=== PATIENT | female | born 1935 | race Hispanic/Latino ===

== ENCOUNTER 2016-12-07 16:50 | Inpatient (IN) | payer MEDICARE ==
[2016-12-07 17:50] LABS: Basophils % (Auto) 0.6 % (0.0-1.8); Eosinophils % (Auto) 1.3 % (0.0-4.3); Hematocrit 40.6 % (30.3-42.9); Hemoglobin 13.7 gm/dl (10.1-14.3); Mean Corpuscular HGB Conc 34 % (30-34); Mean Corpuscular Hemoglobin 27 pg (28-32); Mean Corpuscular Volume 81 fl (79-97); Platelet Count 323 K/mm3 (140-440); Red Blood Count 5.03 M/mm3 (3.65-5.03); Red Cell Distribution Width 14.3 % (13.2-15.2); White Blood Count 10.4 K/mm3 (4.5-11.0)
[2016-12-07 18:13] LABS: Anion Gap 19 mmol/L; Blood Urea Nitrogen 6 mg/dL (7-17); Calcium 9.8 mg/dL (8.4-10.2); Carbon Dioxide 24 mmol/L (22-30); Chloride 86.9 mmol/L (98-107); Glucose 131 mg/dL (65-100); Potassium 4.4 mmol/L (3.6-5.0); Sodium 125 mmol/L (137-145)
--- NOTE | 2016-12-07 20:07 | Emergency Department Report ---
ED Headache HPI - General Chief Complaint: Dyspnea/Respdistress Stated Complaint: SANDEEP/NAUSEA/LEG PAIN Time Seen by Provider: 12/07/16 19:45 - History of Present Illness Initial Comments: Patient is an 81-year-old female with history of A. fib ablation, hypertension presenting today cause of headache, nausea, vomiting. Patient states it's been going on for the last few days. She is also less steady on her feet. She has also been complaining about occasional chest pressure that was worse this morning but currently is mild. She denies any fevers or chills. Also has urinary frequency and dysuria. Allergies/Adverse Reactions: Allergies adhesive Allergy (Verified 12/07/16 17:22) Rash PAPER TAPE IS OK TO USE cyclobenzaprine Allergy (Verified 12/07/16 17:22) Swelling acetaminophen [From Tylenol] Adverse Reaction (Verified 12/07/16 17:22) Unknown PT STATES HURTS KIDNEYS codeine Adverse Reaction (Verified 12/07/16 17:22) Nausea Home Medications: Ambulatory Orders Carvedilol 12.5 mg PO BID 08/05/14 Losartan Potassium 50 mg PO DAILY 08/05/14 Pregabalin [Lyrica] 150 mg PO BID 08/05/14 cycloSPORINE [Restasis 0.05%] 2 drop OU BID 08/05/14 Triamter/Hctz 37.5-25 mg [Maxzide-25] 0.5 tab PO QDAY 12/07/16 ED Review of Systems ROS: Stated complaint: SANDEEP/NAUSEA/LEG PAIN Other details as noted in HPI ED Past Medical Hx - Past Medical History Hx Hypertension: Yes Hx GERD: Yes (occas) Hx Renal Disease: No Hx of Cancer: Yes (BREAST) Hx Arthritis: Yes Additional medical history: "IRREGULAR HEARTBEAT" - Surgical History Hx Breast Surgery: Yes (mastectomy R,) Additional Surgical History: HYSTERECTOMY. CATARACTS REMOVED BILATERAL. EYE IMPLANTS BILATERAL - Social History Smoking Status: Never Smoker Substance Use Type: None - Medications Home Medications: Home Medications Medication Instructions Recorded Confirmed Last Taken Type Carvedilol 12.5 mg PO BID 08/05/14 12/07/16 12/07/16 08:00 History Losartan Potassium 50 mg PO DAILY 08/05/14 12/07/16 12/07/16 08:00 History Pregabalin [Lyrica] 150 mg PO BID 08/05/14 12/07/16 12/07/16 08:00 History cycloSPORINE [Restasis 0.05%] 2 drop OU BID 08/05/14 12/07/16 12/06/16 21:00 History Triamter/Hctz 37.5-25 mg 0.5 tab PO QDAY 12/07/16 12/07/16 12/07/16 12:00 History [Maxzide-25] ED Physical Exam - General Limitations: Physical Limitation General appearance: alert, in no apparent distress - Head Head exam: Present: atraumatic - Eye Eye exam: Present: normal appearance - ENT ENT exam: Present: normal exam - Respiratory Respiratory exam: Present: normal lung sounds bilaterally. Absent: respiratory distress - Cardiovascular Cardiovascular Exam: Present: regular rate, irregular rhythm - GI/Abdominal GI/Abdominal exam: Present: soft. Absent: distended, tenderness - Extremities Exam Extremities exam: Present: normal inspection - Neurological Exam Neurological exam: Present: alert, CN II-XII intact. Absent: motor sensory deficit - Psychiatric Psychiatric exam: Present: normal affect - Skin Skin exam: Present: intact ED Course Vital Signs 12/07/16 12/07/16 12/07/16 17:27 18:23 20:21 Temperature 98.6 F 98.0 F Pulse Rate 61 97 H 105 H Respiratory 22 20 13 Rate Blood Pressure 181/115 Blood Pressure 158/97 [Left] O2 Sat by Pulse 98 95 94 Oximetry 12/07/16 12/07/16 20:30 21:00 Temperature Pulse Rate 95 H 98 H Respiratory 15 21 Rate Blood Pressure 150/93 Blood Pressure [Left] O2 Sat by Pulse 96 92 Oximetry ED Medical Decision Making - Lab Data Result diagrams: 12/07/16 17:37 12/07/16 17:37 - Medical Decision Making IV, labs, CT of head, urinalysis CT of head negative Labs show hyponatremia, hypomagnesemia, hypophosphatemia Patient also is complaining about urinary frequency and dysuria similar to her prior UTIs, UA does show some blood and a few white cells and small leukocyte Estrace, not clearly a urine infection based on UA but given the patient's symptoms this is likely a UTI Given the patient's infusion and abnormal labs will admit the patient to the hospital We'll give some IV ceftriaxone, magnesium and phosphorus Critical care attestation.: If time is entered above; I have spent that time in minutes in the direct care of this critically ill patient, excluding procedure time. ED Disposition Clinical Impression: Metabolic encephalopathy, Hyponatremia, Hypomagnesemia, Hypophosphatemia UTI (urinary tract infection) Qualifiers: Urinary tract infection type: site unspecified Hematuria presence: with hematuria Qualified Code(s): N39.0 - Urinary tract infection, site not specified ; R31.9 - Hematuria, unspecified Disposition: 09 OP ADMIT IP TO THIS HOSP Is pt being admited?: Yes Does the pt Need Aspirin: No Condition: Stable Referrals: PRIMARY CARE, [Primary Care Provider] - 3-5 Days Time of Disposition: 22:50 (Spoke to Dr. Gamboa, will admit the patient)
[2016-12-07 20:17] LABS: Magnesium 1.6 mg/dL (1.7-2.3); Phosphorous 2.4 mg/dL (2.5-4.5)
[2016-12-07] MEDS ORDERED: ZOFRAN IV ONE (20:20)
[2016-12-07] MEDS ORDERED: ZOFRAN ONE (20:36)
--- NOTE | 2016-12-07 20:53 | Cat Scan Report ---
FINAL REPORT PROCEDURE: CT HEAD/BRAIN WO CON TECHNIQUE: Computerized tomography of the head was performed without contrast material. HISTORY: headache COMPARISON: No prior studies are available for comparison. FINDINGS: No CT evidence of intracranial mass, hemorrhage, acute territorial infarction, or hydrocephalus. Intracranial arteries are symmetric in density. There are mild diffuse age-appropriate involutional changes. The calvarium is intact. Visualized paranasal sinuses are aerated. There is fluid within bilateral mastoids IMPRESSION: No CT evidence of acute intracranial abnormality
[2016-12-07 21:35] LABS: Bilirubin,Urine NEG (Negative); Blood,Urine NEG (Negative); Ketones,Urine 20 mg/dL (Negative); Leukocyte Esterase,Urine SM (Negative); Mucus,Urine FEW /HPF; Nitrite,Urine NEG (Negative); Urobilinogen,Urine < 2.0 mg/dL (<2.0)
[2016-12-07] MEDS ORDERED: NACL 0.9% 1000 ML 1,000 ML IV ONE (21:43)
[2016-12-07] MEDS ORDERED: ROCEPHIN/NS 1 GM/50 ML 1 GM/50 ML BAG IV ONE (22:47)
[2016-12-07] MEDS ORDERED: MAGNESIUM SULFATE 2GM/50ML 2 GM/50 ML BAG IV ONE (22:48)
[2016-12-07] MEDS ORDERED: K-PHOS NEUTRAL PO ONE (22:48)
[2016-12-07] MEDS ORDERED: LASIX IV ONE (23:33)
--- NOTE | 2016-12-07 23:53 | History and Physical Report ---
History of Present Illness Date of examination: 12/07/16 History of present illness: This is a. 81-year-old woman history of hypertension, A. fib, not on anticoagulation, coronary artery disease comes emergency room with complaints of shortness of breath, and orthopnea 2-3 weeks. Also complaining of chest pain in the right chest which she describes a heaviness, unable to say how long it lasts for, intermittent in nature, no radiation and she cannot identify exacerbating or relieving factors. Denies nausea vomiting, diaphoresis or palpitation Review of systems Constitutional: no fever, no chills, no weight loss Ears, eyes, nose, mouth and throat: no nasal congestion, no nasal discharge, no sinus pressure, no vision change, no red eye. Neck: No neck pain or rigidity. Cardiovascular: no orthopnea, no palpitations, no leg swelling Respiratory: No cough, no congestion, no wheezing Gastrointestinal: abdominal pain, hematochezia, no nausea, no vomiting Genitourinary : no dysuria, frequency , no hematuria Musculoskeletal: no joint swelling or muscle ache Integumentary: no rash, no pruritis Neurological: no parathesias, no focal weakness Endocrine: no cold or heat intolerance, no polyuria or polydipsia Hematologic/Lymphatic: no easy bruising, no easy bleeding, no gland swelling Allergic/Immunologic: no urticaria, no angioedema PAST MEDICAL HISTORY:hypertension, A. fib, coronary artery disease, breast cancer PAST SURGICAL HISTORY: Vasectomy, hysterectomy, cataract extraction and implant , excision of melanoma FAMILY HISTORY: Hypertension SOCIAL HISTORY: Denies alcohol, tobacco, drugs Medications and Allergies Allergies Allergy/AdvReac Type Severity Reaction Status Date / Time adhesive Allergy Rash Verified 12/07/16 17:22 cyclobenzaprine Allergy Swelling Verified 12/07/16 17:22 acetaminophen [From Tylenol] AdvReac Unknown Verified 12/07/16 17:22 codeine AdvReac Nausea Verified 12/07/16 17:22 Home Medications Medication Instructions Recorded Confirmed Last Taken Type Carvedilol 12.5 mg PO BID 08/05/14 12/07/16 12/07/16 08:00 History Losartan Potassium 50 mg PO DAILY 08/05/14 12/07/16 12/07/16 08:00 History Pregabalin [Lyrica] 150 mg PO BID 08/05/14 12/07/16 12/07/16 08:00 History cycloSPORINE [Restasis 0.05%] 2 drop OU BID 08/05/14 12/07/16 12/06/16 21:00 History Triamter/Hctz 37.5-25 mg 0.5 tab PO QDAY 12/07/16 12/07/16 12/07/16 12:00 History [Maxzide-25] Active Meds: Active Medications Enoxaparin Sodium (Lovenox) 30 mg SUB-Q QDAY MILO Sodium Chloride (Nacl 0.9% 1000 Ml) 1,000 mls @ 125 mls/hr IV ONCE ONE Stop: 12/08/16 05:42 Last Admin: 12/07/16 22:25 Dose: 125 mls/hr Exam - Physical Exam Narrative exam: Gen. appearance: Patient lying in bed, no apparent distress HEENT: Normocephalic, atraumatic, pupils equally round and reactive to light, extraocular movement intact, and no sclericterus,. No JVD or thyromegaly or nodule,neck supple, no carotid bruit ,mucous membranes moist, no exudate or erythema Heart: S1, S2, regular rate and rhythm Lungs: Clear to auscultation bilaterally, breathing comfortable Abdomen: Positive bowel sounds, nontender, nondistended, no organomegaly Extremity: No edema, cyanosis, clubbing Skin: No rash, nodules, warm, dry Neuro: Oriented 3, cranial nerves II-12 intact, speech is fluent, motor and sensory intact - Constitutional Vitals: Temp Pulse Resp BP Pulse Ox 98.0 F 98 H 21 150/93 92 12/07/16 18:23 12/07/16 21:00 12/07/16 21:00 12/07/16 21:00 12/07/16 21:00 Results - Labs CBC & Chem 7: 12/07/16 17:37 12/07/16 17:37 Labs: Abnormal lab results 12/07/16 12/07/16 12/07/16 Range/Units 17:37 17:37 17:37 MCH 27 L (28-32) pg Seg Neutrophils % 74.1 H (40.0-70.0) % Sodium 125 L (137-145) mmol/L Chloride 86.9 L (98-107) mmol/L BUN 6 L (7-17) mg/dL Creatinine 0.5 L (0.7-1.2) mg/dL Glucose 131 H (65-100) mg/dL Phosphorus 2.40 L (2.5-4.5) mg/dL Magnesium 1.60 L (1.7-2.3) mg/dL NT-Pro-B Natriuret Pep 1229 H (0-900) pg/mL Urine pH (5.0-7.0) // Range/Units 21:24 MCH (28-32) pg Seg Neutrophils % (40.0-70.0) % Sodium (137-145) mmol/L Chloride (98-107) mmol/L BUN (7-17) mg/dL Creatinine (0.7-1.2) mg/dL Glucose (65-100) mg/dL Phosphorus (2.5-4.5) mg/dL Magnesium (1.7-2.3) mg/dL NT-Pro-B Natriuret Pep (0-900) pg/mL Urine pH 8.0 H (5.0-7.0) - Imaging and Cardiology EKG: image reviewed Chest x-ray: image reviewed CT Scan - head: report reviewed Assessment and Plan Assessment Shortness of breath, symptoms are suggestive of CHF but physical exam does not support, rule out PE Unstable angina coronary artery disease hypertension A. fib Plan Admit to medicine Check CAT scan of the chest, cardiac enzymes, echo, consult cardiology Continue appropriate outpatient medications, start DVT prophylaxis
[2016-12-07] MEDS ORDERED: MILK OF MAGNESIA PO PRN (23:56)
[2016-12-07] MEDS ORDERED: DULCOLAX PR PRN (23:56)
[2016-12-08 01:09] LABS: Creatine Kinase MB 1.8 ng/mL (0.0-4.0)
[2016-12-08 01:10] LABS: Creatine Kinase 25 units/L (30-135)
[2016-12-08] MEDS ORDERED: NACL ONE (01:40)
--- NOTE | 2016-12-08 02:01 | Admit Criteria Form ---
Admission Criteria Documentation: URINARY COMPLICATIONS Clinical Indications for Inpatient Care (Place 'X' for any and all applicable criteria): Ongoing inpatient care may be indicated for urinary complications with ANY ONE of the following: [ X]I. Urinary tract infection requiring inpatient care as indicated by ANY ONE of the following(8)(19)(20): [ ]a) Severe symptoms (eg, high fever, severe pain) [ ]b) Vomiting or dehydration requiring ongoing inpatient care [ X]c) IV antibiotic needs that cannot be managed at lower level of care [ ]d) Hemodynamic instability [ ]e) Obstruction of collecting system by stone or tumor [ ]II. Urinary retention requiring drainage or surgery (3)(4)(5)(17)(18) [ ]III. Renal failure (Use Renal Failure Criteria for further information.) [ ]IV. Oliguria(30) [ ]V. Post obstructive diuresis requiring close monitoring of urine output and intravenous compensation for excessive fluid losses(33) Extended stay beyond goal length of stay for primary condition may be needed until ALL of the following are present(3)(4)(5)(8): [ ]a) Renal function (creatinine) at baseline, or daily decreases in creatinine consistent with renal function return [ ]b) Voiding adequately or with urinary catheter or percutaneous suprapubic tube and management regimen in place that is performable at lower level of care. [ ]c) Urine output adequate [ ]d) Fever absent or resolving [ ]e) Infection absent or treatable at next level of care The original [employer] content created by [employer] has been revised. The portions of the content which have been revised are identified through the use of italic text or in bold, and [facility] has neither reviewed nor approved the modified material. All other unmodified content is copyright [employer] Please see references footnoted in the original [employer] edition 2016 Admission Criteria Met: Yes
--- NOTE | 2016-12-08 03:47 | Cat Scan Report ---
FINAL REPORT PROCEDURE: CT ANGIO CHEST TECHNIQUE: Computerized tomographic angiography of the chest was performed after the IV injection of iodinated nonionic contrast including image processing. The image data was postprocessed using 2-dimensional multiplanar reformatted (MPR) and 3-dimensional (MIP and/or volume rendered) techniques. HISTORY: sob x acouple weeks COMPARISON: No prior studies are available for comparison. FINDINGS: Heart and pericardium: The heart is mildly enlarged. There is no pericardial effusion.. Thoracic aorta: There is slight ectasia of the aorta but no aneurysm. There is no dissection.. Pulmonary vasculature: Pulmonary arteries are patent. There is no pulmonary embolism. Lungs: There are no infiltrates, effusions or pneumothoraces. There are mild fibrotic changes at the lung bases.. Musculoskeletal structures: There is mild kyphosis of the thoracic spine. There is no acute bony abnormality. IMPRESSION: There is no pulmonary embolism. There is no aortic dissection. There is no acute lung disease.
[2016-12-08 05:28] LABS: Basophils % (Auto) 0.9 % (0.0-1.8); Eosinophils % (Auto) 0.1 % (0.0-4.3); Hematocrit 41.5 % (30.3-42.9); Hemoglobin 13.7 gm/dl (10.1-14.3); Mean Corpuscular HGB Conc 33 % (30-34); Mean Corpuscular Hemoglobin 27 pg (28-32); Mean Corpuscular Volume 80 fl (79-97); Platelet Count 306 K/mm3 (140-440); Red Blood Count 5.19 M/mm3 (3.65-5.03); Red Cell Distribution Width 14.3 % (13.2-15.2); White Blood Count 12.5 K/mm3 (4.5-11.0)
[2016-12-08 05:45] LABS: Anion Gap 20 mmol/L; Blood Urea Nitrogen 6 mg/dL (7-17); Calcium 9.4 mg/dL (8.4-10.2); Carbon Dioxide 24 mmol/L (22-30); Chloride 88.2 mmol/L (98-107); Glucose 128 mg/dL (65-100); Potassium 3.3 mmol/L (3.6-5.0); Sodium 129 mmol/L (137-145)
[2016-12-08 05:51] LABS: Creatine Kinase MB 4.5 ng/mL (0.0-4.0)
[2016-12-08 05:53] LABS: Creatine Kinase 77 units/L (30-135)
--- NOTE | 2016-12-08 09:02 | XRay Report ---
PA chest: SOB. Right mastectomy. Clear lungs with mildly elevated right hemidiaphragm. Slightly tortuous aorta with normal sized heart. No vascular congestion. No significant change compared to prior exam in January 2015. Impression: No acute findings.
[2016-12-08] MEDS ORDERED: LOVENOX SUB-Q SCH (10:00)
[2016-12-08] MEDS: LOVENOX SUB-Q SCH (10:02)
--- NOTE | 2016-12-08 11:09 | Consultation ---
History of Present Illness Consult date: 12/08/16 Consult reason: chest pain History of present illness: This is a 81yr old woman with a history of paroxysmal Afib only on a low dose baby aspirin and hypertension. 2 years ago, she had a cardiac cath that showed mild, non-obstructive coronary disease, EF 65-70%. She presents to this hospital with complaints of nausea, dizziness and fatigue. She denies chest pain and shortness of breath. Noted hyponatremia with a sodium of 125 on her initial labs. No evidence of pulmonary embolism on chest CTA. Her ECG shows atrial fibrillation with a controlled ventricular rate. Cardiac consultation requested. Medications and Allergies Allergies Allergy/AdvReac Type Severity Reaction Status Date / Time adhesive Allergy Rash Verified 12/07/16 17:22 cyclobenzaprine Allergy Swelling Verified 12/07/16 17:22 acetaminophen [From Tylenol] AdvReac Unknown Verified 12/07/16 17:22 codeine AdvReac Nausea Verified 12/07/16 17:22 Home Medications Medication Instructions Recorded Confirmed Last Taken Type Carvedilol 12.5 mg PO BID 08/05/14 12/07/16 12/07/16 08:00 History Losartan Potassium 50 mg PO DAILY 08/05/14 12/07/16 12/07/16 08:00 History Pregabalin [Lyrica] 150 mg PO BID 08/05/14 12/07/16 12/07/16 08:00 History cycloSPORINE [Restasis 0.05%] 2 drop OU BID 08/05/14 12/07/16 12/06/16 21:00 History Triamter/Hctz 37.5-25 mg 0.5 tab PO QDAY 12/07/16 12/07/16 12/07/16 12:00 History [Maxzide-25] Active Meds: Active Medications Bisacodyl (Dulcolax) 10 mg MD QDAY PRN PRN Reason: Constipation unrelieved by MOM Enoxaparin Sodium (Lovenox) 40 mg SUB-Q QDAY@1000 MILO Last Admin: 12/08/16 10:02 Dose: 40 mg Magnesium Hydroxide (Milk Of Magnesia) 30 ml PO Q4H PRN PRN Reason: Constipation Ondansetron HCl (Zofran) 4 mg IV Q8H PRN PRN Reason: N/V unrelieved by Reglan Physical Examination Vital Signs Temp Pulse Resp BP Pulse Ox 98.6 F 61 22 181/115 98 12/07/16 17:27 12/07/16 17:27 12/07/16 17:27 12/07/16 17:27 12/07/16 17:27 General appearance: no acute distress HEENT: Positive: PERRL Neck: Positive: trachea midline Cardiac: Positive: irregularly irregular Lungs: Positive: Decreased Breath Sounds Neuro: Positive: Grossly Intact Results 12/08/16 04:45 12/08/16 04:45 Cardiac Enzymes 12/08/16 12/08/16 Range/Units 00:12 04:45 CK-MB (CK-2) 1.8 4.5 H (0.0-4.0) ng/mL CBC 12/08/16 Range/Units 04:45 WBC 12.5 H (4.5-11.0) K/mm3 RBC 5.19 H (3.65-5.03) M/mm3 Hgb 13.7 (10.1-14.3) gm/dl Hct 41.5 (30.3-42.9) % Plt Count 306 (140-440) K/mm3 Lymph # 1.6 (1.2-5.4) K/mm3 [place] # 0.9 H (0.0-0.8) K/mm3 Eos # 0.0 (0.0-0.4) K/mm3 Baso # 0.1 (0.0-0.1) K/mm3 Comprehensive Metabolic Panel 12/08/16 Range/Units 04:45 Potassium 3.3 L D (3.6-5.0) mmol/L Carbon Dioxide 24 (22-30) mmol/L BUN 6 L (7-17) mg/dL Creatinine 0.5 L (0.7-1.2) mg/dL Glucose 128 H (65-100) mg/dL Calcium 9.4 (8.4-10.2) mg/dL Assessment and Plan Nausea/weakness Hyponatremia Hypertension Afib, persistent on telemetry [facility] 01/2015 showed a mild non-obstructive disease, EF 65-70%.
--- NOTE | 2016-12-08 11:29 | Progress Note ---
Assessment and Plan Assessment and plan: Acute hypoxic respiratory failure. Continue O2 for supportive care. CT of the chest negative. Follow-up echocardiogram. Cardiology consultation pending. Atrial fibrillation. Cardiology consultation pending. Hypertension. Resume antihypertensive medications. Coronary artery disease History Interval history: No new issues overnight. Patient is an extremely poor historian. Hospitalist Physical - Constitutional Vitals: Temp Pulse Resp BP Pulse Ox 97.8 F 76 20 126/77 96 12/08/16 09:20 12/08/16 09:20 12/08/16 09:20 12/08/16 09:20 12/08/16 09:20 General appearance: Present: no acute distress, well-nourished - EENT Eyes: Present: PERRL, EOM intact ENT: hearing intact, clear oral mucosa, dentition normal - Neck Neck: Present: supple, normal ROM - Respiratory Respiratory effort: normal Respiratory: bilateral: CTA - Cardiovascular Rhythm: regular Heart Sounds: Present: S1 & S2. Absent: gallop, rub - Extremities Extremities: no ischemia, No edema, Full ROM - Abdominal General gastrointestinal: soft, non-tender, non-distended, normal bowel sounds - Integumentary Integumentary: Present: clear, warm, dry - Neurologic Neurologic: CNII-XII intact, moves all extremities Results - Labs CBC & Chem 7: 12/08/16 04:45 12/08/16 04:45 Labs: Laboratory Last Values WBC 12.5 K/mm3 (4.5-11.0) H 12/08/16 04:45 RBC 5.19 M/mm3 (3.65-5.03) H 12/08/16 04:45 Hgb 13.7 gm/dl (10.1-14.3) 12/08/16 04:45 Hct 41.5 % (30.3-42.9) 12/08/16 04:45 MCV 80 fl (79-97) 12/08/16 04:45 MCH 27 pg (28-32) L 12/08/16 04:45 MCHC 33 % (30-34) 12/08/16 04:45 RDW 14.3 % (13.2-15.2) 12/08/16 04:45 Plt Count 306 K/mm3 (140-440) 12/08/16 04:45 Lymph % (Auto) 12.6 % (13.4-35.0) L 12/08/16 04:45 [place] % (Auto) 6.9 % (0.0-7.3) 12/08/16 04:45 Eos % (Auto) 0.1 % (0.0-4.3) 12/08/16 04:45 Baso % (Auto) 0.9 % (0.0-1.8) 12/08/16 04:45 Lymph # 1.6 K/mm3 (1.2-5.4) 12/08/16 04:45 [place] # 0.9 K/mm3 (0.0-0.8) H 12/08/16 04:45 Eos # 0.0 K/mm3 (0.0-0.4) 12/08/16 04:45 Baso # 0.1 K/mm3 (0.0-0.1) 12/08/16 04:45 Seg Neutrophils % 79.5 % (40.0-70.0) H 12/08/16 04:45 Seg Neutrophils # 9.9 K/mm3 (1.8-7.7) H 12/08/16 04:45 D-Dimer 549.31 ng/mlDDU (0-234) H 12/07/16 23:36 Sodium 125 mmol/L (137-145) L 12/07/16 17:37 Potassium 3.3 mmol/L (3.6-5.0) L D 12/08/16 04:45 Chloride 86.9 mmol/L (98-107) L 12/07/16 17:37 Carbon Dioxide 24 mmol/L (22-30) 12/08/16 04:45 Anion Gap 19 mmol/L 12/07/16 17:37 BUN 6 mg/dL (7-17) L 12/08/16 04:45 Creatinine 0.5 mg/dL (0.7-1.2) L 12/08/16 04:45 Estimated GFR > 60 ml/min 12/08/16 04:45 BUN/Creatinine Ratio 12.00 % 12/08/16 04:45 Glucose 128 mg/dL (65-100) H 12/08/16 04:45 Calcium 9.4 mg/dL (8.4-10.2) 12/08/16 04:45 Phosphorus 2.40 mg/dL (2.5-4.5) L 12/07/16 17:37 Magnesium 1.60 mg/dL (1.7-2.3) L 12/07/16 17:37 Total Creatine Kinase 77 units/L (30-135) 12/08/16 04:45 CK-MB (CK-2) 4.5 ng/mL (0.0-4.0) H 12/08/16 04:45 CK-MB (CK-2) Rel Index 5.8 (0-4) H 12/08/16 04:45 Troponin T < 0.010 ng/mL (0.00-0.029) 12/08/16 04:45 NT-Pro-B Natriuret Pep 1229 pg/mL (0-900) H 12/07/16 17:37 Urine Color Yellow (Yellow) 12/07/16 21:24 Urine Turbidity Clear (Clear) 12/07/16 21:24 Urine pH 8.0 (5.0-7.0) H 12/07/16 21:24 Ur Specific [place] 1.012 (1.003-1.030) 12/07/16 21:24 Urine Protein 100 mg/dl mg/dL (Negative) 12/07/16 21:24 Urine Glucose (UA) Neg mg/dL (Negative) 12/07/16 21:24 Urine Ketones 20 mg/dL (Negative) 12/07/16 21:24 Urine Blood Neg (Negative) 12/07/16 21:24 Urine Nitrite Neg (Negative) 12/07/16 21:24 Urine Bilirubin Neg (Negative) 12/07/16 21:24 Urine Urobilinogen < 2.0 mg/dL (<2.0) 12/07/16 21:24 Ur Leukocyte Esterase Sm (Negative) 12/07/16 21:24 Urine WBC (Auto) 2.0 /HPF (0.0-6.0) 12/07/16 21:24 Urine RBC (Auto) 10.0 /HPF (0.0-6.0) 12/07/16 21:24 U Epithel Cells (Auto) 2.0 /HPF (0-13.0) 12/07/16 21:24 Urine Mucus Few /HPF 12/07/16 21:24
[2016-12-08] MEDS: ZOFRAN IV PRN (15:30)
[2016-12-08] MEDS: COREG PO SCH (21:26)
[2016-12-09] MEDS: COREG PO SCH ×2 (10:02→21:21)
[2016-12-09] MEDS: MAXZIDE-25 PO SCH (10:04)
[2016-12-09] MEDS: LOVENOX SUB-Q SCH ×2 (10:04→21:21)
[2016-12-09] MEDS: ZOFRAN IV PRN (10:05)
[2016-12-09] MEDS ORDERED: REGLAN IV PRN (11:48)
--- NOTE | 2016-12-09 11:48 | Progress Note ---
Assessment and Plan Assessment and plan: Acute hypoxic respiratory failure. Continue O2 for supportive care. CT of the chest negative. Follow-up echocardiogram. Cardiology consultation pending. Atrial fibrillation. Continue carvedilol for rate control. Cardiology recommends long-term oral anticoagulation after GI workup. Hypertension. Resume antihypertensive medications. Hyponatremia. Etiology likely secondary to diuretic use. Continue to monitor BMP. Nausea/vomiting/dyspepsia. GI consultation pending.*Reglan and check KUB to rule out obstruction/ileus. History Interval history: No new issues overnight. Patient complains of nausea and dry heaves. No hematemesis. Hospitalist Physical - Constitutional Vitals: Temp Pulse Resp BP Pulse Ox 98.2 F 84 16 183/85 98 12/09/16 10:57 12/09/16 10:57 12/09/16 10:57 12/09/16 10:57 12/09/16 10:57 General appearance: Present: no acute distress - EENT Eyes: Present: PERRL, EOM intact ENT: hearing intact, clear oral mucosa, dentition normal - Neck Neck: Present: supple, normal ROM - Respiratory Respiratory effort: normal Respiratory: bilateral: CTA - Cardiovascular Rhythm: regular Heart Sounds: Present: S1 & S2. Absent: gallop, rub - Extremities Extremities: no ischemia, No edema, Full ROM - Abdominal General gastrointestinal: soft, non-tender, non-distended, normal bowel sounds - Integumentary Integumentary: Present: clear, warm, dry - Neurologic Neurologic: CNII-XII intact, moves all extremities Results - Labs CBC & Chem 7: 12/08/16 04:45 12/08/16 04:45 Labs: Laboratory Last Values WBC 12.5 K/mm3 (4.5-11.0) H 12/08/16 04:45 RBC 5.19 M/mm3 (3.65-5.03) H 12/08/16 04:45 Hgb 13.7 gm/dl (10.1-14.3) 12/08/16 04:45 Hct 41.5 % (30.3-42.9) 12/08/16 04:45 MCV 80 fl (79-97) 12/08/16 04:45 MCH 27 pg (28-32) L 12/08/16 04:45 MCHC 33 % (30-34) 12/08/16 04:45 RDW 14.3 % (13.2-15.2) 12/08/16 04:45 Plt Count 306 K/mm3 (140-440) 12/08/16 04:45 Lymph % (Auto) 12.6 % (13.4-35.0) L 12/08/16 04:45 [place] % (Auto) 6.9 % (0.0-7.3) 12/08/16 04:45 Eos % (Auto) 0.1 % (0.0-4.3) 12/08/16 04:45 Baso % (Auto) 0.9 % (0.0-1.8) 12/08/16 04:45 Lymph # 1.6 K/mm3 (1.2-5.4) 12/08/16 04:45 [place] # 0.9 K/mm3 (0.0-0.8) H 12/08/16 04:45 Eos # 0.0 K/mm3 (0.0-0.4) 12/08/16 04:45 Baso # 0.1 K/mm3 (0.0-0.1) 12/08/16 04:45 Seg Neutrophils % 79.5 % (40.0-70.0) H 12/08/16 04:45 Seg Neutrophils # 9.9 K/mm3 (1.8-7.7) H 12/08/16 04:45 D-Dimer 549.31 ng/mlDDU (0-234) H 12/07/16 23:36 Sodium 125 mmol/L (137-145) L 12/07/16 17:37 Potassium 3.3 mmol/L (3.6-5.0) L D 12/08/16 04:45 Chloride 86.9 mmol/L (98-107) L 12/07/16 17:37 Carbon Dioxide 24 mmol/L (22-30) 12/08/16 04:45 Anion Gap 19 mmol/L 12/07/16 17:37 BUN 6 mg/dL (7-17) L 12/08/16 04:45 Creatinine 0.5 mg/dL (0.7-1.2) L 12/08/16 04:45 Estimated GFR > 60 ml/min 12/08/16 04:45 BUN/Creatinine Ratio 12.00 % 12/08/16 04:45 Glucose 128 mg/dL (65-100) H 12/08/16 04:45 Calcium 9.4 mg/dL (8.4-10.2) 12/08/16 04:45 Phosphorus 2.40 mg/dL (2.5-4.5) L 12/07/16 17:37 Magnesium 1.60 mg/dL (1.7-2.3) L 12/07/16 17:37 Total Creatine Kinase 77 units/L (30-135) 12/08/16 04:45 CK-MB (CK-2) 4.5 ng/mL (0.0-4.0) H 12/08/16 04:45 CK-MB (CK-2) Rel Index 5.8 (0-4) H 12/08/16 04:45 Troponin T < 0.010 ng/mL (0.00-0.029) 12/08/16 04:45 NT-Pro-B Natriuret Pep 1229 pg/mL (0-900) H 12/07/16 17:37 Urine Color Yellow (Yellow) 12/07/16 21:24 Urine Turbidity Clear (Clear) 12/07/16 21:24 Urine pH 8.0 (5.0-7.0) H 12/07/16 21:24 Ur Specific [place] 1.012 (1.003-1.030) 12/07/16 21:24 Urine Protein 100 mg/dl mg/dL (Negative) 12/07/16 21:24 Urine Glucose (UA) Neg mg/dL (Negative) 12/07/16 21:24 Urine Ketones 20 mg/dL (Negative) 12/07/16 21:24 Urine Blood Neg (Negative) 12/07/16 21:24 Urine Nitrite Neg (Negative) 12/07/16 21:24 Urine Bilirubin Neg (Negative) 12/07/16 21:24 Urine Urobilinogen < 2.0 mg/dL (<2.0) 12/07/16 21:24 Ur Leukocyte Esterase Sm (Negative) 12/07/16 21:24 Urine WBC (Auto) 2.0 /HPF (0.0-6.0) 12/07/16 21:24 Urine RBC (Auto) 10.0 /HPF (0.0-6.0) 12/07/16 21:24 U Epithel Cells (Auto) 2.0 /HPF (0-13.0) 12/07/16 21:24 Urine Mucus Few /HPF 12/07/16 21:24
--- NOTE | 2016-12-09 12:22 | Progress Note ---
Assessment and Plan Nausea/weakness CTA chest - no PE or dissection Awaiting GI evaluation Hyponatremia and hypokalemia Hypertension on carvedilol and maxzide Afib, persistent on telemetry, rate controlled [facility] 01/2015 showed a mild non-obstructive disease, EF 65-70%. Recommendations: Continue current management Change lovenox to therapeutic dose for atrial fibrillation (hold if GI work-up is needed) Upon discharge, start eliquis 5 mg po bid Subjective Date of service: 12/09/16 Principal diagnosis: Nausea Interval history: Patient continues to have nausea. She denies chest pain or abdominal pain. Objective Vital Signs Temp Pulse Pulse Pulse Pulse Resp BP 12/09/16 10:57 98.2 F 84 16 183/85 12/09/16 10:02 56 L 12/09/16 10:00 55 L 12/09/16 07:43 98.0 F 56 L 56 L 16 12/09/16 05:36 98.2 F 0 L 58 L 18 12/09/16 00:54 98.2 F 0 L 63 18 12/08/16 22:00 60 12/08/16 21:47 12/08/16 20:10 98.0 F 0 L 60 18 12/08/16 19:55 20 12/08/16 15:42 97.8 F 68 20 12/08/16 13:00 98.0 F 68 20 BP Pulse Ox 12/09/16 10:57 98 12/09/16 10:02 12/09/16 10:00 96 12/09/16 07:43 150/88 95 12/09/16 05:36 177/78 92 12/09/16 00:54 138/67 93 12/08/16 22:00 12/08/16 21:47 94 12/08/16 20:10 196/92 94 12/08/16 19:55 12/08/16 15:42 166/81 94 12/08/16 13:00 170/81 94 - Physical Examination HEENT: Positive: PERRL Neck: Positive: trachea midline Cardiac: Positive: irregularly irregular Lungs: Positive: Normal Exam Neuro: Positive: Grossly Intact - Imaging and Cardiology EKG: image reviewed
--- NOTE | 2016-12-09 13:39 | XRay Report ---
ABDOMEN RADIOGRAPHS INDICATION: Nausea, vomiting. COMPARISON: None similar. FINDINGS: Frontal abdominal radiographs demonstrate non-obstructive bowel gas pattern. No focal suspicious calcifications or pneumatosis. Lung bases incompletely imaged. EKG leads. Demineralized bones with few degenerative changes. CONCLUSION: No acute abdominal radiographic abnormality, as described. Thank you for the opportunity to participate in this patient's care.
[2016-12-09] MEDS: APRESOLINE IV SCH ×3 (14:12→23:37)
--- NOTE | 2016-12-09 19:50 | Gastroenterology Consultation ---
History of Present Illness - Reason for Consult Consult date: 12/09/16 Nausea Requesting physician: MILENA DE LUNA - History of Present Illness The patient is an 81 yo female admitted with SOB and CP. She has known CAD and Afib but was not felt to have acute cardiac disease or a PE by CTA (see Cards notes). She has had dyspepsia for some time, and rec'd an EGD by Dr Wilcox several years ago. However, it flared significantly this week, and she had severe non-bloody emesis on Monday. Since then, the vomiting has subsided, but she still has significant nausea. No liver or lipase testing was done; there has been no abdominal imaging. The patient denies blood in her stools; she may have lost a few pounds in weight in the last month but is unable to quantify. She has had no abdominal surgery except for a JERAMIE. She denies significant pain, it is primarily nausea. She has not started any new medications at home that could have triggered this. Past History Past Medical History: atrial fib, CAD, hypertension, other (Breast Cancer) Past Surgical History: hysterectomy Social history: denies: smoking, alcohol abuse Family history: hypertension Medications and Allergies Allergies Allergy/AdvReac Type Severity Reaction Status Date / Time adhesive Allergy Rash Verified 12/07/16 17:22 cyclobenzaprine Allergy Swelling Verified 12/07/16 17:22 acetaminophen [From Tylenol] AdvReac Unknown Verified 12/07/16 17:22 codeine AdvReac Nausea Verified 12/07/16 17:22 Home Medications Medication Instructions Recorded Confirmed Last Taken Type Carvedilol 12.5 mg PO BID 08/05/14 12/07/16 12/07/16 08:00 History Losartan Potassium 50 mg PO DAILY 08/05/14 12/07/16 12/07/16 08:00 History Pregabalin [Lyrica] 150 mg PO BID 08/05/14 12/07/16 12/07/16 08:00 History cycloSPORINE [Restasis 0.05%] 2 drop OU BID 08/05/14 12/07/16 12/06/16 21:00 History Triamter/Hctz 37.5-25 mg 0.5 tab PO QDAY 12/07/16 12/07/16 12/07/16 12:00 History [Maxzide-25] Active Meds: Active Medications Bisacodyl (Dulcolax) 10 mg MO QDAY PRN PRN Reason: Constipation unrelieved by MOM Carvedilol (Coreg) 25 mg PO BID [facility] Last Admin: 12/09/16 10:02 Dose: Not Given Enoxaparin Sodium (Lovenox) 110 mg SUB-Q Q12HR [facility] Hydralazine HCl (Apresoline) 10 mg IV Q4HR [facility] [place] Last Admin: 12/09/16 14:12 Dose: 10 mg Magnesium Hydroxide (Milk Of Magnesia) 30 ml PO Q4H PRN PRN Reason: Constipation Metoclopramide HCl (Reglan) 10 mg IV Q6H PRN PRN Reason: Nausea And Vomiting Last Admin: 12/09/16 13:10 Dose: 10 mg Ondansetron HCl (Zofran) 4 mg IV Q8H PRN PRN Reason: N/V unrelieved by Reglan Last Admin: 12/09/16 10:05 Dose: 4 mg Pantoprazole Sodium (Protonix) 40 mg PO QDAY [facility] Triamterene/HCTZ (Maxzide-25) 0.5 each PO Q48H [facility] [place] Last Admin: 12/09/16 10:04 Dose: 0.5 each Review of Systems - Review of Systems All systems: negative (as noted in the HPI.) Exam - Constitutional Vital Signs: Temp Pulse Resp BP Pulse Ox 98.2 F 62 16 149/69 97 12/09/16 17:43 12/09/16 17:43 12/09/16 17:43 12/09/16 17:43 12/09/16 17:43 General appearance: no acute distress - EENT Eyes: PERRL, EOM intact ENT: hearing intact, clear oral mucosa, no thrush - Neck Neck: supple, normal ROM - Respiratory Respiratory effort: normal Respiratory: bilateral: CTA - Cardiovascular Rhythm: irregularly irregular Heart Sounds: Present: S1 & S2 Extremities: no ischemia, No edema - Gastrointestinal General gastrointestinal: Present: soft, non-tender, non-distended - Integumentary Integumentary: Present: clear, warm, dry - Neurologic Neurological: alert and oriented x3 - Labs CBC & Chem 7: 12/08/16 04:45 12/08/16 04:45 Assessment and Plan - Patient Problems (1) Nausea & vomiting Current Visit: Yes Status: Acute Qualifiers: Vomiting type: V Vomiting Intractability: V Plan to address problem: - Will check LFT, lipase, and TSH. - Abdominal US, and trial of protonix given chronic dyspepsia. - EGD and CT A/P (given hx of breast cancer) if above studies negative. - For now, OK to continue lovenox full-strength since no active bleeding. (2) Abnormal loss of weight Current Visit: Yes Status: Acute
[2016-12-09] MEDS: PROTONIX PO SCH (21:20)
[2016-12-09] MEDS ORDERED: LOVENOX SUB-Q SCH (22:00)
[2016-12-10] MEDS: APRESOLINE IV SCH ×6 (04:54→21:32)
[2016-12-10] MEDS: ZOFRAN IV PRN ×2 (04:54→22:05)
[2016-12-10 06:01] LABS: Basophils % (Auto) 1.1 % (0.0-1.8); Eosinophils % (Auto) 2.4 % (0.0-4.3); Hematocrit 38.9 % (30.3-42.9); Hemoglobin 12.8 gm/dl (10.1-14.3); Mean Corpuscular HGB Conc 33 % (30-34); Mean Corpuscular Hemoglobin 26 pg (28-32); Mean Corpuscular Volume 80 fl (79-97); Platelet Count 314 K/mm3 (140-440); Red Blood Count 4.88 M/mm3 (3.65-5.03); Red Cell Distribution Width 14.4 % (13.2-15.2); White Blood Count 10.9 K/mm3 (4.5-11.0)
[2016-12-10 06:20] LABS: Alanine Aminotransferase 11 units/L (7-56); Albumin 3.6 g/dL (3.9-5); Albumin/Globulin Ratio 1.2 %; Alkaline Phosphatase 67 units/L (35-129); Anion Gap 18 mmol/L; Blood Urea Nitrogen 6 mg/dL (7-17); Calcium 9.3 mg/dL (8.4-10.2); Carbon Dioxide 22 mmol/L (22-30); Chloride 85.3 mmol/L (98-107); Glucose 113 mg/dL (65-100); Lipase 139 units/L (13-60); Potassium 3.5 mmol/L (3.6-5.0); Sodium 122 mmol/L (137-145); Total Protein 6.7 g/dL (6.3-8.2)
[2016-12-10] MEDS: LOVENOX SUB-Q SCH ×2 (09:35→21:30)
[2016-12-10] MEDS: PROTONIX PO SCH (09:36)
[2016-12-10] MEDS: COREG PO SCH ×2 (09:36→21:31)
--- NOTE | 2016-12-10 10:50 | Ultrasound Report ---
ULTRASOUND ABDOMEN COMPLETE: Technique: Transabdominal ultrasound with color Doppler interrogation. History: abdominal pain. Findings: The liver is normal size, contour and echotexture. The gallbladder dimensions are within normal limits without intraluminal stone, wall thickening, or pericholecystic fluid. A small amount of gallbladder sludge is identified. The CBD is normal caliber. The visualized portions of the pancreas including the head and proximal body are within normal limits. The kidneys demonstrate no hydronephrosis or mass. 1.6 cm simple cyst in the inferior left kidney is noted. Cortical thickness and echogenicity are within normal limits bilaterally. The spleen and aorta are within normal limits. No aneurysmal dilatation is noted. No ascites. The bladder is unremarkable. IMPRESSION: Mild sludge in the gallbladder. No evidence for acute cholecystitis. Simple left renal cyst.
--- NOTE | 2016-12-10 11:28 | Progress Note ---
Assessment and Plan - Patient Problems (1) Atrial fibrillation Current Visit: Yes Status: Acute Qualifiers: Atrial fibrillation type: A Plan to address problem: She has atrial fibrillation of uncertain duration, following GI workup for her presenting GI symptoms, we will start her on oral anticoagulation therapy. Subjective Date of service: 12/10/16 Principal diagnosis: Nausea Interval history: Patient is comfortable, no cardiac complaints. Her primary complaints remain poor appetite, dyspepsia and nausea/vomiting Objective Vital Signs Temp Pulse Pulse Resp BP Pulse Ox 12/10/16 09:36 76 138/69 12/10/16 05:11 98.9 F 61 20 196/88 93 12/10/16 04:54 68 196/88 12/10/16 00:06 97.9 F 56 L 18 190/81 94 12/09/16 23:37 60 190/81 12/09/16 22:00 60 57 L 12/09/16 21:21 184/85 12/09/16 19:54 98.9 F 62 18 184/85 94 12/09/16 17:43 98.2 F 62 16 149/69 97 12/09/16 14:12 84 183/85 - Physical Examination General: No Apparent Distress HEENT: Positive: PERRL Neck: Positive: trachea midline Cardiac: Positive: Reg Rate and Rhythm Lungs: Positive: Decreased Breath Sounds Neuro: Positive: Grossly Intact Abdomen: Positive: Soft Skin: Positive: Clear Extremities: Absent: edema - Labs and Meds Cardiac Enzymes 12/10/16 Range/Units 05:37 AST 25 (5-40) units/L CBC 12/10/16 Range/Units 05:37 WBC 10.9 (4.5-11.0) K/mm3 RBC 4.88 (3.65-5.03) M/mm3 Hgb 12.8 (10.1-14.3) gm/dl Hct 38.9 (30.3-42.9) % Plt Count 314 (140-440) K/mm3 Lymph # 1.9 (1.2-5.4) K/mm3 [place] # 1.4 H (0.0-0.8) K/mm3 Eos # 0.3 (0.0-0.4) K/mm3 Baso # 0.1 (0.0-0.1) K/mm3 Comprehensive Metabolic Panel 12/10/16 Range/Units 05:37 Sodium 122 L D (137-145) mmol/L Potassium 3.5 L (3.6-5.0) mmol/L Chloride 85.3 L (98-107) mmol/L Carbon Dioxide 22 (22-30) mmol/L BUN 6 L (7-17) mg/dL Creatinine 0.4 L (0.7-1.2) mg/dL Glucose 113 H (65-100) mg/dL Calcium 9.3 (8.4-10.2) mg/dL AST 25 (5-40) units/L ALT 11 (7-56) units/L Alkaline Phosphatase 67 (35-129) units/L Total Protein 6.7 (6.3-8.2) g/dL Albumin 3.6 L (3.9-5) g/dL - Imaging and Cardiology EKG: image reviewed
--- NOTE | 2016-12-10 11:47 | Progress Note ---
Assessment and Plan Assessment and plan: Acute hypoxic respiratory failure. Continue O2 for supportive care. CT of the chest negative. Follow-up echocardiogram. Cardiology following Atrial fibrillation. Continue carvedilol for rate control. Cardiology recommends long-term oral anticoagulation. Hypertension. 3 antihypertensive medications. Hyponatremia. Etiology likely secondary to diuretic use. Continue to monitor BMP. Nausea/vomiting/dyspepsia. Trial of Protonix. Continue antiemetics and supportive care with IV fluid hydration. Consider EGD and CT scan of the abdomen and pelvis per GI. Acute mild pancreatitis. Lipase slightly elevated at 139. Follow-up abdominal ultrasound. History Interval history: Patient still complains of nausea vomiting. Hospitalist Physical - Constitutional Vitals: Temp Pulse Resp BP Pulse Ox 98.9 F 76 20 138/69 93 12/10/16 05:11 12/10/16 09:36 12/10/16 05:11 12/10/16 09:36 12/10/16 05:11 General appearance: Present: no acute distress - EENT Eyes: Present: PERRL, EOM intact ENT: hearing intact, clear oral mucosa, dentition normal - Neck Neck: Present: supple, normal ROM - Respiratory Respiratory effort: normal Respiratory: bilateral: CTA - Cardiovascular Rhythm: regular Heart Sounds: Present: S1 & S2. Absent: gallop, rub - Extremities Extremities: no ischemia, No edema, Full ROM - Abdominal General gastrointestinal: soft, non-tender, non-distended, normal bowel sounds - Integumentary Integumentary: Present: clear, warm, dry - Neurologic Neurologic: CNII-XII intact, moves all extremities Results - Labs CBC & Chem 7: 12/10/16 05:37 12/10/16 05:37 Labs: Laboratory Last Values WBC 10.9 K/mm3 (4.5-11.0) 12/10/16 05:37 RBC 4.88 M/mm3 (3.65-5.03) 12/10/16 05:37 Hgb 12.8 gm/dl (10.1-14.3) 12/10/16 05:37 Hct 38.9 % (30.3-42.9) 12/10/16 05:37 MCV 80 fl (79-97) 12/10/16 05:37 MCH 26 pg (28-32) L 12/10/16 05:37 MCHC 33 % (30-34) 12/10/16 05:37 RDW 14.4 % (13.2-15.2) 12/10/16 05:37 Plt Count 314 K/mm3 (140-440) 12/10/16 05:37 Lymph % (Auto) 17.9 % (13.4-35.0) 12/10/16 05:37 [place] % (Auto) 12.9 % (0.0-7.3) H 12/10/16 05:37 Eos % (Auto) 2.4 % (0.0-4.3) 12/10/16 05:37 Baso % (Auto) 1.1 % (0.0-1.8) 12/10/16 05:37 Lymph # 1.9 K/mm3 (1.2-5.4) 12/10/16 05:37 [place] # 1.4 K/mm3 (0.0-0.8) H 12/10/16 05:37 Eos # 0.3 K/mm3 (0.0-0.4) 12/10/16 05:37 Baso # 0.1 K/mm3 (0.0-0.1) 12/10/16 05:37 Seg Neutrophils % 65.7 % (40.0-70.0) 12/10/16 05:37 Seg Neutrophils # 7.2 K/mm3 (1.8-7.7) 12/10/16 05:37 D-Dimer 549.31 ng/mlDDU (0-234) H 12/07/16 23:36 Sodium 122 mmol/L (137-145) L D 12/10/16 05:37 Potassium 3.5 mmol/L (3.6-5.0) L 12/10/16 05:37 Chloride 85.3 mmol/L (98-107) L 12/10/16 05:37 Carbon Dioxide 22 mmol/L (22-30) 12/10/16 05:37 Anion Gap 18 mmol/L 12/10/16 05:37 BUN 6 mg/dL (7-17) L 12/10/16 05:37 Creatinine 0.4 mg/dL (0.7-1.2) L 12/10/16 05:37 Estimated GFR > 60 ml/min 12/10/16 05:37 BUN/Creatinine Ratio 15.00 % 12/10/16 05:37 Glucose 113 mg/dL (65-100) H 12/10/16 05:37 POC Glucose 99 (70-105) 12/09/16 21:03 Calcium 9.3 mg/dL (8.4-10.2) 12/10/16 05:37 Phosphorus 2.40 mg/dL (2.5-4.5) L 12/07/16 17:37 Magnesium 1.60 mg/dL (1.7-2.3) L 12/07/16 17:37 Total Bilirubin 0.80 mg/dL (0.1-1.2) 12/10/16 05:37 AST 25 units/L (5-40) 12/10/16 05:37 ALT 11 units/L (7-56) 12/10/16 05:37 Alkaline Phosphatase 67 units/L (35-129) 12/10/16 05:37 Total Creatine Kinase 77 units/L (30-135) 12/08/16 04:45 CK-MB (CK-2) 4.5 ng/mL (0.0-4.0) H 12/08/16 04:45 CK-MB (CK-2) Rel Index 5.8 (0-4) H 12/08/16 04:45 Troponin T < 0.010 ng/mL (0.00-0.029) 12/08/16 04:45 NT-Pro-B Natriuret Pep 1229 pg/mL (0-900) H 12/07/16 17:37 Total Protein 6.7 g/dL (6.3-8.2) 12/10/16 05:37 Albumin 3.6 g/dL (3.9-5) L 12/10/16 05:37 Albumin/Globulin Ratio 1.2 % 12/10/16 05:37 Lipase 139 units/L (13-60) H 12/10/16 05:37 TSH 2.930 mlU/mL (0.270-4.200) 12/10/16 05:37 Urine Color Yellow (Yellow) 12/07/16 21:24 Urine Turbidity Clear (Clear) 12/07/16 21:24 Urine pH 8.0 (5.0-7.0) H 12/07/16 21:24 Ur Specific [place] 1.012 (1.003-1.030) 12/07/16 21:24 Urine Protein 100 mg/dl mg/dL (Negative) 12/07/16 21:24 Urine Glucose (UA) Neg mg/dL (Negative) 12/07/16 21:24 Urine Ketones 20 mg/dL (Negative) 12/07/16 21:24 Urine Blood Neg (Negative) 12/07/16 21:24 Urine Nitrite Neg (Negative) 12/07/16 21:24 Urine Bilirubin Neg (Negative) 12/07/16 21:24 Urine Urobilinogen < 2.0 mg/dL (<2.0) 12/07/16 21:24 Ur Leukocyte Esterase Sm (Negative) 12/07/16 21:24 Urine WBC (Auto) 2.0 /HPF (0.0-6.0) 12/07/16 21:24 Urine RBC (Auto) 10.0 /HPF (0.0-6.0) 12/07/16 21:24 U Epithel Cells (Auto) 2.0 /HPF (0-13.0) 12/07/16 21:24 Urine Mucus Few /HPF 12/07/16 21:24
--- NOTE | 2016-12-10 22:33 | Gastroenterology Progress Note ---
Assessment and Plan 1. Nausea/vomiting 2. Abdominal pain -improved symptoms since admission, tolerated clears today -pt with severe hyponatremia, which likely is contributing to symptoms -noted elevated lipase. given symptoms, will obtain CT scan of abd to r/o pancreatitis or other acute etiologies. Subjective Date of service: 12/10/16 Principal diagnosis: Nausea Interval history: patient reports tolerating clears today without n/v. states symptoms improved since admission. Objective - Exam Narrative Exam: Gen: NAD, overweight female CV: RRR Lungs: CTAB, non labored Abd: soft, nd, mild upper abd ttp, no r/g, +bs - Constitutional Vitals: Temp Pulse Resp BP Pulse Ox 98.1 F 70 20 176/75 90 12/10/16 19:44 12/10/16 19:44 12/10/16 19:44 12/10/16 19:44 12/10/16 19:44 - Labs CBC & Chem 7: 12/10/16 05:37 12/10/16 05:37 Labs: Laboratory Results - last 24 hr 12/10/16 12/10/16 12/10/16 05:37 05:37 05:37 WBC 10.9 RBC 4.88 Hgb 12.8 Hct 38.9 MCV 80 MCH 26 L MCHC 33 RDW 14.4 Plt Count 314 Lymph % (Auto) 17.9 [place] % (Auto) 12.9 H Eos % (Auto) 2.4 Baso % (Auto) 1.1 Lymph # 1.9 [place] # 1.4 H Eos # 0.3 Baso # 0.1 Seg Neutrophils % 65.7 Seg Neutrophils # 7.2 Sodium 122 L D Potassium 3.5 L Chloride 85.3 L Carbon Dioxide 22 Anion Gap 18 BUN 6 L Creatinine 0.4 L Estimated GFR > 60 BUN/Creatinine Ratio 15.00 Glucose 113 H POC Glucose Calcium 9.3 Total Bilirubin 0.80 AST 25 ALT 11 Alkaline Phosphatase 67 Total Protein 6.7 Albumin 3.6 L Albumin/Globulin Ratio 1.2 Lipase 139 H TSH 2.930 12/10/16 12/10/16 13:36 16:16 WBC RBC Hgb Hct MCV MCH MCHC RDW Plt Count Lymph % (Auto) [place] % (Auto) Eos % (Auto) Baso % (Auto) Lymph # [place] # Eos # Baso # Seg Neutrophils % Seg Neutrophils # Sodium Potassium Chloride Carbon Dioxide Anion Gap BUN Creatinine Estimated GFR BUN/Creatinine Ratio Glucose POC Glucose 105 119 H Calcium Total Bilirubin AST ALT Alkaline Phosphatase Total Protein Albumin Albumin/Globulin Ratio Lipase TSH - Imaging Ultrasound: report reviewed
[2016-12-11] MEDS: APRESOLINE IV SCH ×6 (02:01→21:53)
[2016-12-11] MEDS: ZOFRAN IV PRN (07:37)
[2016-12-11] MEDS ORDERED: NACL ONE (07:42)
--- NOTE | 2016-12-11 10:10 | Cat Scan Report ---
CT SCAN OF THE ABDOMEN AND PELVIS WITH CONTRAST: HISTORY: Abdominal pain, elevated lipase. TECHNIQUE: Helical CT in 1.25mm intervals following IV contrast. Sagittal and coronal reconstructions. FINDINGS: The liver is normal in size and is without focal defect. No gallstones or biliary dilatation are noted. The spleen and pancreas demonstrate a normal size and attenuation with no evidence of abnormal mass. The kidneys are normal in size and position with no evidence of hydronephrosis or mass. A few small simple cortical cysts are noted in both kidneys. The adrenal glands are normal. There is a short segment of circumferential thickening in the right hemicolon near the hepatic flexure which is best demonstrated on image 166, series 2. There is an adjacent 2 cm mesenteric soft tissue nodule. Although this could represent focal inflammation, a neoplastic process is suspected. There is no evidence for bowel obstruction. Hysterectomy changes. The bladder and distal ureters are unremarkable. No pelvic fluid collection. The bony structures are demineralized with degenerative changes. No focal bony lesion appreciated. The lung bases are clear. IMPRESSION: Focal area of circumferential thickening in the proximal colon concerning for a neoplastic process. Consider followup barium enema. No acute abdominal process identified.
--- NOTE | 2016-12-11 10:41 | Progress Note ---
Assessment and Plan - Patient Problems (1) Atrial fibrillation Current Visit: Yes Status: Acute Qualifiers: Atrial fibrillation type: A Plan to address problem: She has atrial fibrillation of uncertain duration, following GI workup for her presenting GI symptoms, we will start her on oral anticoagulation therapy. (2) Hyponatremia Current Visit: Yes Status: Acute Plan to address problem: Hyponatremia and poor oral intake associated with GI symptomatology. We will start the patient on normal saline at 75 mL an hour. Subjective Date of service: 12/11/16 Principal diagnosis: Nausea Interval history: Patient complains of nausea, poor oral intake, decreased appetite and persistent dry heaves. Consequently, she has marked hyponatremia with a sodium of 122. GI workup is in progress. There are no cardiac complaints. Objective Vital Signs Temp Pulse Resp BP Pulse Ox 12/11/16 04:36 98.3 F 62 22 163/75 98 12/11/16 00:00 67 12/10/16 23:52 97.6 F 60 18 116/58 96 12/10/16 19:44 98.1 F 70 20 176/75 90 12/10/16 15:12 98.3 F 61 20 139/64 96 12/10/16 14:55 94 H 180/84 12/10/16 13:34 97.8 F 60 20 180/80 95 - Physical Examination General: No Apparent Distress HEENT: Positive: PERRL Neck: Positive: trachea midline Cardiac: Positive: Reg Rate and Rhythm Lungs: Positive: clear to auscultation Neuro: Positive: Grossly Intact Abdomen: Positive: Soft Skin: Positive: Clear Extremities: Absent: edema - Imaging and Cardiology EKG: image reviewed
[2016-12-11] MEDS ORDERED: D5/0.45NS 1,000 ML IV SCH (11:00)
[2016-12-11] MEDS: LOVENOX SUB-Q SCH ×2 (11:27→21:54)
[2016-12-11] MEDS: PROTONIX PO SCH (11:29)
[2016-12-11] MEDS: MAXZIDE-25 PO SCH (11:32)
[2016-12-11] MEDS: COREG PO SCH ×2 (11:33→21:54)
--- NOTE | 2016-12-11 12:03 | Progress Note ---
Assessment and Plan Assessment and plan: Abdominal pain. CT scan reveals circumferential thickening of the proximal colon. ? Neoplasm, check CEA tumor marker. Colonoscopy +/- EGD per GI. Acute hypoxic respiratory failure. Continue O2 for supportive care. CT of the chest negative. Echocardiogram per cardiology. Atrial fibrillation. Continue carvedilol for rate control. Cardiology recommends long-term oral anticoagulation which has been started. Hypertension. Continue antihypertensive medications. Hyponatremia. Etiology likely secondary to diuretic use. Continue to monitor BMP. IV fluid of normal saline. Nausea/vomiting/dyspepsia. Continue antiemetics, proton and supportive care with IV fluid hydration. GI to consider EGD. Acute mild pancreatitis. Lipase slightly elevated at 139. History Interval history: Patient still complains of nausea vomiting. Hospitalist Physical - Constitutional Vitals: Temp Pulse Resp BP Pulse Ox 98.3 F 64 22 166/82 98 12/11/16 04:36 12/11/16 11:33 12/11/16 04:36 12/11/16 11:33 12/11/16 04:36 General appearance: Present: no acute distress - EENT Eyes: Present: PERRL, EOM intact ENT: hearing intact, clear oral mucosa, dentition normal - Neck Neck: Present: supple, normal ROM - Respiratory Respiratory effort: normal Respiratory: bilateral: CTA - Cardiovascular Rhythm: regular Heart Sounds: Present: S1 & S2. Absent: gallop, rub - Extremities Extremities: no ischemia, No edema, Full ROM - Abdominal General gastrointestinal: soft, non-tender, non-distended, normal bowel sounds - Integumentary Integumentary: Present: clear, warm, dry - Neurologic Neurologic: CNII-XII intact, moves all extremities Results - Labs CBC & Chem 7: 12/10/16 05:37 12/10/16 05:37 Labs: Laboratory Last Values WBC 10.9 K/mm3 (4.5-11.0) 12/10/16 05:37 RBC 4.88 M/mm3 (3.65-5.03) 12/10/16 05:37 Hgb 12.8 gm/dl (10.1-14.3) 12/10/16 05:37 Hct 38.9 % (30.3-42.9) 12/10/16 05:37 MCV 80 fl (79-97) 12/10/16 05:37 MCH 26 pg (28-32) L 12/10/16 05:37 MCHC 33 % (30-34) 12/10/16 05:37 RDW 14.4 % (13.2-15.2) 12/10/16 05:37 Plt Count 314 K/mm3 (140-440) 12/10/16 05:37 Lymph % (Auto) 17.9 % (13.4-35.0) 12/10/16 05:37 [place] % (Auto) 12.9 % (0.0-7.3) H 12/10/16 05:37 Eos % (Auto) 2.4 % (0.0-4.3) 12/10/16 05:37 Baso % (Auto) 1.1 % (0.0-1.8) 12/10/16 05:37 Lymph # 1.9 K/mm3 (1.2-5.4) 12/10/16 05:37 [place] # 1.4 K/mm3 (0.0-0.8) H 12/10/16 05:37 Eos # 0.3 K/mm3 (0.0-0.4) 12/10/16 05:37 Baso # 0.1 K/mm3 (0.0-0.1) 12/10/16 05:37 Seg Neutrophils % 65.7 % (40.0-70.0) 12/10/16 05:37 Seg Neutrophils # 7.2 K/mm3 (1.8-7.7) 12/10/16 05:37 D-Dimer 549.31 ng/mlDDU (0-234) H 12/07/16 23:36 Sodium 122 mmol/L (137-145) L D 12/10/16 05:37 Potassium 3.5 mmol/L (3.6-5.0) L 12/10/16 05:37 Chloride 85.3 mmol/L (98-107) L 12/10/16 05:37 Carbon Dioxide 22 mmol/L (22-30) 12/10/16 05:37 Anion Gap 18 mmol/L 12/10/16 05:37 BUN 6 mg/dL (7-17) L 12/10/16 05:37 Creatinine 0.4 mg/dL (0.7-1.2) L 12/10/16 05:37 Estimated GFR > 60 ml/min 12/10/16 05:37 BUN/Creatinine Ratio 15.00 % 12/10/16 05:37 Glucose 113 mg/dL (65-100) H 12/10/16 05:37 POC Glucose 119 (70-105) H 12/10/16 16:16 Calcium 9.3 mg/dL (8.4-10.2) 12/10/16 05:37 Phosphorus 2.40 mg/dL (2.5-4.5) L 12/07/16 17:37 Magnesium 1.60 mg/dL (1.7-2.3) L 12/07/16 17:37 Total Bilirubin 0.80 mg/dL (0.1-1.2) 12/10/16 05:37 AST 25 units/L (5-40) 12/10/16 05:37 ALT 11 units/L (7-56) 12/10/16 05:37 Alkaline Phosphatase 67 units/L (35-129) 12/10/16 05:37 Total Creatine Kinase 77 units/L (30-135) 12/08/16 04:45 CK-MB (CK-2) 4.5 ng/mL (0.0-4.0) H 12/08/16 04:45 CK-MB (CK-2) Rel Index 5.8 (0-4) H 12/08/16 04:45 Troponin T < 0.010 ng/mL (0.00-0.029) 12/08/16 04:45 NT-Pro-B Natriuret Pep 1229 pg/mL (0-900) H 12/07/16 17:37 Total Protein 6.7 g/dL (6.3-8.2) 12/10/16 05:37 Albumin 3.6 g/dL (3.9-5) L 12/10/16 05:37 Albumin/Globulin Ratio 1.2 % 12/10/16 05:37 Lipase 139 units/L (13-60) H 12/10/16 05:37 TSH 2.930 mlU/mL (0.270-4.200) 12/10/16 05:37 Urine Color Yellow (Yellow) 12/07/16 21:24 Urine Turbidity Clear (Clear) 12/07/16 21:24 Urine pH 8.0 (5.0-7.0) H 12/07/16 21:24 Ur Specific [place] 1.012 (1.003-1.030) 12/07/16 21:24 Urine Protein 100 mg/dl mg/dL (Negative) 12/07/16 21:24 Urine Glucose (UA) Neg mg/dL (Negative) 12/07/16 21:24 Urine Ketones 20 mg/dL (Negative) 12/07/16 21:24 Urine Blood Neg (Negative) 12/07/16 21:24 Urine Nitrite Neg (Negative) 12/07/16 21:24 Urine Bilirubin Neg (Negative) 12/07/16 21:24 Urine Urobilinogen < 2.0 mg/dL (<2.0) 12/07/16 21:24 Ur Leukocyte Esterase Sm (Negative) 12/07/16 21:24 Urine WBC (Auto) 2.0 /HPF (0.0-6.0) 12/07/16 21:24 Urine RBC (Auto) 10.0 /HPF (0.0-6.0) 12/07/16 21:24 U Epithel Cells (Auto) 2.0 /HPF (0-13.0) 12/07/16 21:24 Urine Mucus Few /HPF 12/07/16 21:24
--- NOTE | 2016-12-11 22:04 | Gastroenterology Progress Note ---
Assessment and Plan CT findings reviewed, abnormality in the right side of colon concerning for possible neoplasm. CEA level pending. Will review prior colonoscopy records ( reportedly 5 years ago per pt and family). Colonoscopy likely will be needed once pt able to tolerate prep. Subjective Date of service: 12/11/16 Principal diagnosis: Nausea Interval history: pt npo today since CT scan this AM. tolerated clears yday but continues to have nausea. No BM in last couple days. Objective - Constitutional Vitals: Temp Pulse Resp BP Pulse Ox 98.5 F 58 L 20 168/78 96 12/11/16 20:25 12/11/16 21:54 12/11/16 20:25 12/11/16 21:54 12/11/16 20:25 General appearance: no acute distress, obese - Respiratory Respiratory effort: normal Respiratory: bilateral: CTA - Cardiovascular Rhythm: other (irregular) Heart Sounds: Present: S1 & S2 (w) - Gastrointestinal General gastrointestinal: Present: soft, non-tender, normal bowel sounds - Neurologic Neurological: alert and oriented x3 - Labs CBC & Chem 7: 12/10/16 05:37 12/10/16 05:37 Labs: Laboratory Results - last 24 hr 12/10/16 12/11/16 12/11/16 07:36 07:41 12:08 POC Glucose 111 H 112 H 97 12/11/16 16:28 POC Glucose 114 H - Imaging CT scan: report reviewed
[2016-12-12] MEDS: APRESOLINE IV SCH ×5 (02:32→22:49)
[2016-12-12] MEDS: NACL 0.9% 1000 ML 1,000 ML IV SCH ×2 (02:35→22:50)
[2016-12-12 05:52] LABS: Hematocrit 35.5 % (30.3-42.9); Hemoglobin 11.6 gm/dl (10.1-14.3); Mean Corpuscular HGB Conc 33 % (30-34); Mean Corpuscular Hemoglobin 27 pg (28-32); Mean Corpuscular Volume 82 fl (79-97); Platelet Count 281 K/mm3 (140-440); Red Blood Count 4.36 M/mm3 (3.65-5.03); Red Cell Distribution Width 14.2 % (13.2-15.2); White Blood Count 8.4 K/mm3 (4.5-11.0)
[2016-12-12 05:58] LABS: Anion Gap 19 mmol/L; BUN/Creatinine Ratio 16.66; Blood Urea Nitrogen 10 mg/dL (7-17); Calcium 8.6 mg/dL (8.4-10.2); Carbon Dioxide 20 mmol/L (22-30); Chloride 85.7 mmol/L (98-107); Glucose 93 mg/dL (65-100); Lipase 39 units/L (13-60); Potassium 3.3 mmol/L (3.6-5.0); Sodium 121 mmol/L (137-145)
[2016-12-12 06:04] LABS: Basophils % (Auto) 0.6 % (0.0-1.8); Eosinophils % (Auto) 0.8 % (0.0-4.3)
[2016-12-12 06:05] LABS: Diff Status Complete
[2016-12-12] MEDS: ZOFRAN IV PRN ×2 (08:14→16:45)
--- NOTE | 2016-12-12 09:10 | Gastroenterology Progress Note ---
<MARYNADERRICARDO Brown - Last Filed: 12/12/16 09:12> Assessment and Plan 1.N/V 2.abd pain -tolerating clear liquids w/o vomiting -still c/o nausea, however improves with antimetics -CT scan-abnormality in the right side of colon concerning for possible neoplasm -CEA level-pending -continue supportive care -clear liquids today -NPO after MN -will schedule for EGD and colonoscopy for tomorrow -will follow Subjective Date of service: 12/12/16 Principal diagnosis: N/V, abd pain Interval history: Patient resting in bed, no acute distress. Family at bedside. Pt denies abd pain or vomiting. Still reports nausea, improved with antimetics. Objective - Constitutional Vitals: Temp Pulse Resp BP Pulse Ox 98.2 F 59 L 20 132/62 98 12/12/16 05:43 12/12/16 09:00 12/12/16 05:43 12/12/16 05:43 12/12/16 05:43 General appearance: no acute distress, obese - EENT Eyes: PERRL, EOM intact ENT: hearing intact - Neck Neck: supple, normal ROM - Respiratory Respiratory: bilateral: CTA (anterior) - Cardiovascular Rhythm: regular Heart Sounds: Present: S1 & S2 - Extremities Extremities: No edema - Gastrointestinal General gastrointestinal: Present: soft, non-tender, non-distended, normal bowel sounds - Integumentary Integumentary: Present: warm, dry - Neurologic Neurological: alert and oriented x3 - Psychiatric Psychiatric: appropriate mood/affect, cooperative - Labs CBC & Chem 7: 12/12/16 04:30 12/12/16 04:30 Labs: Laboratory Results - last 24 hr 12/11/16 12/11/16 12/11/16 07:41 12:08 16:28 WBC RBC Hgb Hct MCV MCH MCHC RDW Plt Count Lymph % (Auto) [place] % (Auto) Eos % (Auto) Baso % (Auto) Lymph # [place] # Eos # Baso # Add Manual Diff Seg Neutrophils % Seg Neutrophils # Sodium Potassium Chloride Carbon Dioxide Anion Gap BUN Creatinine Estimated GFR BUN/Creatinine Ratio Glucose POC Glucose 112 H 97 114 H Calcium Lipase 12/12/16 12/12/16 12/12/16 04:30 04:30 08:03 WBC 8.4 RBC 4.36 Hgb 11.6 Hct 35.5 MCV 82 MCH 27 L MCHC 33 RDW 14.2 Plt Count 281 Lymph % (Auto) 13.7 [place] % (Auto) 12.1 H Eos % (Auto) 0.8 Baso % (Auto) 0.6 Lymph # 1.1 L [place] # 1.0 H Eos # 0.1 Baso # 0.1 Add Manual Diff Complete Seg Neutrophils % 72.8 H Seg Neutrophils # 6.1 Sodium 121 L Potassium 3.3 L Chloride 85.7 L Carbon Dioxide 20 L Anion Gap 19 BUN 10 Creatinine 0.6 L Estimated GFR > 60 BUN/Creatinine Ratio 16.66 Glucose 93 POC Glucose 98 Calcium 8.6 Lipase 39 <RASHEEDA CRURY - Last Filed: 12/12/16 18:40> Assessment and Plan Patient seen and examined. Agree with note above. Will attempt EGD and colonoscopy (if pt able to take prep) tomorrow. Objective - Constitutional Vitals: Temp Pulse Resp BP Pulse Ox 97.0 F L 59 L 20 156/69 98 12/12/16 17:00 12/12/16 17:00 12/12/16 17:00 12/12/16 17:00 12/12/16 12:00 - Labs CBC & Chem 7: 12/12/16 04:30 12/12/16 04:30 Labs: Laboratory Results - last 24 hr 12/11/16 12/11/16 12/11/16 07:41 12:08 16:28 WBC RBC Hgb Hct MCV MCH MCHC RDW Plt Count Lymph % (Auto) [place] % (Auto) Eos % (Auto) Baso % (Auto) Lymph # [place] # Eos # Baso # Add Manual Diff Seg Neutrophils % Seg Neutrophils # Sodium Potassium Chloride Carbon Dioxide Anion Gap BUN Creatinine Estimated GFR BUN/Creatinine Ratio Glucose POC Glucose 112 H 97 114 H Calcium Lipase 12/12/16 12/12/16 12/12/16 04:30 04:30 08:03 WBC 8.4 RBC 4.36 Hgb 11.6 Hct 35.5 MCV 82 MCH 27 L MCHC 33 RDW 14.2 Plt Count 281 Lymph % (Auto) 13.7 [place] % (Auto) 12.1 H Eos % (Auto) 0.8 Baso % (Auto) 0.6 Lymph # 1.1 L [place] # 1.0 H Eos # 0.1 Baso # 0.1 Add Manual Diff Complete Seg Neutrophils % 72.8 H Seg Neutrophils # 6.1 Sodium 121 L Potassium 3.3 L Chloride 85.7 L Carbon Dioxide 20 L Anion Gap 19 BUN 10 Creatinine 0.6 L Estimated GFR > 60 BUN/Creatinine Ratio 16.66 Glucose 93 POC Glucose 98 Calcium 8.6 Lipase 39 12/12/16 12/12/16 12:09 16:44 WBC RBC Hgb Hct MCV MCH MCHC RDW Plt Count Lymph % (Auto) [place] % (Auto) Eos % (Auto) Baso % (Auto) Lymph # [place] # Eos # Baso # Add Manual Diff Seg Neutrophils % Seg Neutrophils # Sodium Potassium Chloride Carbon Dioxide Anion Gap BUN Creatinine Estimated GFR BUN/Creatinine Ratio Glucose POC Glucose 95 90 Calcium Lipase
[2016-12-12] MEDS ORDERED: GOLYTELY PO ONE (09:16)
[2016-12-12] MEDS ORDERED: KCL 10MEQ/100ML 10 MEQ/100 ML BAG IV ONE (10:42)
--- NOTE | 2016-12-12 10:43 | Progress Note ---
Assessment and Plan Assessment and plan: Abdominal pain. CT scan reveals circumferential thickening of the proximal colon. ? Neoplasm, check CEA tumor marker. Colonoscopy and EGD per GI tomorrow. Acute hypoxic respiratory failure. Continue O2 for supportive care. CT of the chest negative. Echocardiogram per cardiology. Atrial fibrillation. Continue carvedilol for rate control. Cardiology recommends long-term oral anticoagulation which has been started. Hypertension. Continue antihypertensive medications. Hyponatremia. Etiology likely secondary to diuretic use. Continue to monitor BMP. IV fluid of normal saline. Hold diuretics. Hypokalemia. Replete potassium. Nausea/vomiting/dyspepsia. Continue antiemetics, PPI and supportive care with IV fluid hydration. Acute mild pancreatitis. Lipase slightly elevated at 139. History Interval history: Patient still complains of nausea vomiting. Hospitalist Physical - Constitutional Vitals: Temp Pulse Resp BP Pulse Ox 97.7 F 59 L 18 128/58 97 12/12/16 08:00 12/12/16 09:00 12/12/16 08:00 12/12/16 08:00 12/12/16 08:00 General appearance: Present: no acute distress - EENT Eyes: Present: PERRL, EOM intact ENT: hearing intact, clear oral mucosa, dentition normal - Neck Neck: Present: supple, normal ROM - Respiratory Respiratory effort: normal Respiratory: bilateral: CTA - Cardiovascular Rhythm: regular Heart Sounds: Present: S1 & S2. Absent: gallop, rub - Extremities Extremities: no ischemia, No edema, Full ROM - Abdominal General gastrointestinal: soft, non-tender, non-distended, normal bowel sounds - Integumentary Integumentary: Present: clear, warm, dry - Neurologic Neurologic: CNII-XII intact, moves all extremities Results - Labs CBC & Chem 7: 12/12/16 04:30 12/12/16 04:30 Labs: Laboratory Last Values WBC 8.4 K/mm3 (4.5-11.0) 12/12/16 04:30 RBC 4.36 M/mm3 (3.65-5.03) 12/12/16 04:30 Hgb 11.6 gm/dl (10.1-14.3) 12/12/16 04:30 Hct 35.5 % (30.3-42.9) 12/12/16 04:30 MCV 82 fl (79-97) 12/12/16 04:30 MCH 27 pg (28-32) L 12/12/16 04:30 MCHC 33 % (30-34) 12/12/16 04:30 RDW 14.2 % (13.2-15.2) 12/12/16 04:30 Plt Count 281 K/mm3 (140-440) 12/12/16 04:30 Lymph % (Auto) 13.7 % (13.4-35.0) 12/12/16 04:30 [place] % (Auto) 12.1 % (0.0-7.3) H 12/12/16 04:30 Eos % (Auto) 0.8 % (0.0-4.3) 12/12/16 04:30 Baso % (Auto) 0.6 % (0.0-1.8) 12/12/16 04:30 Lymph # 1.1 K/mm3 (1.2-5.4) L 12/12/16 04:30 [place] # 1.0 K/mm3 (0.0-0.8) H 12/12/16 04:30 Eos # 0.1 K/mm3 (0.0-0.4) 12/12/16 04:30 Baso # 0.1 K/mm3 (0.0-0.1) 12/12/16 04:30 Add Manual Diff Complete 12/12/16 04:30 Seg Neutrophils % 72.8 % (40.0-70.0) H 12/12/16 04:30 Seg Neutrophils # 6.1 K/mm3 (1.8-7.7) 12/12/16 04:30 D-Dimer 549.31 ng/mlDDU (0-234) H 12/07/16 23:36 Sodium 121 mmol/L (137-145) L 12/12/16 04:30 Potassium 3.3 mmol/L (3.6-5.0) L 12/12/16 04:30 Chloride 85.7 mmol/L (98-107) L 12/12/16 04:30 Carbon Dioxide 20 mmol/L (22-30) L 12/12/16 04:30 Anion Gap 19 mmol/L 12/12/16 04:30 BUN 10 mg/dL (7-17) 12/12/16 04:30 Creatinine 0.6 mg/dL (0.7-1.2) L 12/12/16 04:30 Estimated GFR > 60 ml/min 12/12/16 04:30 BUN/Creatinine Ratio 16.66 % 12/12/16 04:30 Glucose 93 mg/dL (65-100) 12/12/16 04:30 POC Glucose 98 (70-105) 12/12/16 08:03 Calcium 8.6 mg/dL (8.4-10.2) 12/12/16 04:30 Phosphorus 2.40 mg/dL (2.5-4.5) L 12/07/16 17:37 Magnesium 1.60 mg/dL (1.7-2.3) L 12/07/16 17:37 Total Bilirubin 0.80 mg/dL (0.1-1.2) 12/10/16 05:37 AST 25 units/L (5-40) 12/10/16 05:37 ALT 11 units/L (7-56) 12/10/16 05:37 Alkaline Phosphatase 67 units/L (35-129) 12/10/16 05:37 Total Creatine Kinase 77 units/L (30-135) 12/08/16 04:45 CK-MB (CK-2) 4.5 ng/mL (0.0-4.0) H 12/08/16 04:45 CK-MB (CK-2) Rel Index 5.8 (0-4) H 12/08/16 04:45 Troponin T < 0.010 ng/mL (0.00-0.029) 12/08/16 04:45 NT-Pro-B Natriuret Pep 1229 pg/mL (0-900) H 12/07/16 17:37 Total Protein 6.7 g/dL (6.3-8.2) 12/10/16 05:37 Albumin 3.6 g/dL (3.9-5) L 12/10/16 05:37 Albumin/Globulin Ratio 1.2 % 12/10/16 05:37 Lipase 39 units/L (13-60) 12/12/16 04:30 TSH 2.930 mlU/mL (0.270-4.200) 12/10/16 05:37 Urine Color Yellow (Yellow) 12/07/16 21:24 Urine Turbidity Clear (Clear) 12/07/16 21:24 Urine pH 8.0 (5.0-7.0) H 12/07/16 21:24 Ur Specific [place] 1.012 (1.003-1.030) 12/07/16 21:24 Urine Protein 100 mg/dl mg/dL (Negative) 12/07/16 21:24 Urine Glucose (UA) Neg mg/dL (Negative) 12/07/16 21:24 Urine Ketones 20 mg/dL (Negative) 12/07/16 21:24 Urine Blood Neg (Negative) 12/07/16 21:24 Urine Nitrite Neg (Negative) 12/07/16 21:24 Urine Bilirubin Neg (Negative) 12/07/16 21:24 Urine Urobilinogen < 2.0 mg/dL (<2.0) 12/07/16 21:24 Ur Leukocyte Esterase Sm (Negative) 12/07/16 21:24 Urine WBC (Auto) 2.0 /HPF (0.0-6.0) 12/07/16 21:24 Urine RBC (Auto) 10.0 /HPF (0.0-6.0) 12/07/16 21:24 U Epithel Cells (Auto) 2.0 /HPF (0-13.0) 12/07/16 21:24 Urine Mucus Few /HPF 12/07/16 21:24
[2016-12-12] MEDS: COREG PO SCH ×2 (11:16→22:50)
[2016-12-12] MEDS: PROTONIX PO SCH (11:17)
[2016-12-12] MEDS: LOVENOX SUB-Q SCH ×2 (11:17→22:49)
--- NOTE | 2016-12-12 13:30 | Progress Note ---
Assessment and Plan - Patient Problems (1) Atrial fibrillation Current Visit: Yes Status: Acute Qualifiers: Atrial fibrillation type: A Plan to address problem: She has atrial fibrillation of uncertain duration, following GI workup for her presenting GI symptoms, we will start her on oral anticoagulation therapy. (2) Hyponatremia Current Visit: Yes Status: Acute Plan to address problem: Hyponatremia and poor oral intake associated with GI symptomatology. Current sodium is 121. Subjective Date of service: 12/12/16 Principal diagnosis: N/V, abd pain Interval history: Patient is comfortable, no acute distress. GI workup in progress for nausea, decreased appetite and persistent dyspepsia. Objective Vital Signs Temp Pulse Resp BP Pulse Ox 12/12/16 11:16 58 L 12/12/16 09:00 59 L 12/12/16 08:00 97.7 F 58 L 18 128/58 97 12/12/16 05:43 98.2 F 59 L 20 132/62 98 12/12/16 05:39 59 L 132/62 12/12/16 02:32 71 126/60 12/12/16 00:00 97.9 F 59 L 20 118/54 98 12/11/16 22:00 63 20 97 12/11/16 21:54 58 L 168/78 12/11/16 21:53 58 L 168/78 12/11/16 20:25 98.5 F 58 L 20 168/78 96 12/11/16 17:27 98.4 F 56 L 18 143/69 98 - Physical Examination General: No Apparent Distress HEENT: Positive: PERRL Neck: Positive: trachea midline Cardiac: Positive: Reg Rate and Rhythm Lungs: Positive: Decreased Breath Sounds Neuro: Positive: Grossly Intact Abdomen: Positive: Soft Skin: Positive: Clear Extremities: Absent: edema - Labs and Meds CBC 12/12/16 Range/Units 04:30 WBC 8.4 (4.5-11.0) K/mm3 RBC 4.36 (3.65-5.03) M/mm3 Hgb 11.6 (10.1-14.3) gm/dl Hct 35.5 (30.3-42.9) % Plt Count 281 (140-440) K/mm3 Lymph # 1.1 L (1.2-5.4) K/mm3 [place] # 1.0 H (0.0-0.8) K/mm3 Eos # 0.1 (0.0-0.4) K/mm3 Baso # 0.1 (0.0-0.1) K/mm3 Comprehensive Metabolic Panel 12/12/16 Range/Units 04:30 Sodium 121 L (137-145) mmol/L Potassium 3.3 L (3.6-5.0) mmol/L Chloride 85.7 L (98-107) mmol/L Carbon Dioxide 20 L (22-30) mmol/L BUN 10 (7-17) mg/dL Creatinine 0.6 L (0.7-1.2) mg/dL Glucose 93 (65-100) mg/dL Calcium 8.6 (8.4-10.2) mg/dL - Imaging and Cardiology EKG: image reviewed
[2016-12-13] MEDS: APRESOLINE IV SCH ×3 (06:49→21:29)
[2016-12-13 07:49] LABS: INR 1.15 (0.87-1.13)
[2016-12-13] MEDS ORDERED: WATER FOR IRRIG STERILE IR ONE (10:01)
[2016-12-13] MEDS ORDERED: WATER FOR IRRIG STERILE ONE ×2 (10:01→11:00)
[2016-12-13] MEDS: NACL 0.9% 1000 ML 1,000 ML IV SCH (10:09)
[2016-12-13] MEDS ORDERED: DIPRIVAN 10 MG/ML IV ONE ×2 (10:13)
[2016-12-13] MEDS ORDERED: AMIDATE IV ONE (10:14)
--- NOTE | 2016-12-13 10:29 | Anesthesia Consultation ---
Anesthesia Consult and Med Hx Date of service: 12/13/16 - Airway Anesthetic Teeth Evaluation: Edentulous (upper) ROM Head & Neck: Adequate Mental/Hyoid Distance: Adequate Mallampati Class: Class III Intubation Access Assessment: Possibly Difficult - Pulmonary Exam CTA: Yes - Cardiac Exam Cardiac Exam: RRR - Pre-Operative Health Status ASA Pre-Surgery Classification: ASA3 Proposed Anesthetic Plan: MAC - Pre-Anesthesia Comment Pre-Anesthesia Comments: Pt is hyponatremia (121), and hypokalemia (3.3) - Pulmonary Hx Smoking: No Hx Respiratory Symptoms: Yes (acute hypoxic resp failure, on O2) SOB: Yes - Cardiovascular System Hx Hypertension: Yes Hx Coronary Artery Disease: Yes (has a small blockage) Hx Cardia Arrhythmia: Yes (Afib) - Central Nervous System Hx Psychiatric Problems: Yes - Endocrine Hx Renal Disease: No Hx Insulin Dependent Diabetes: No - Hematic Hx Anemia: Yes (>45 YRS AGO DURING DIFFICULT BABY DELIVERY"STILL ") - Other Systems Hx Cancer: Yes (skin-facial, leg melanoma, Rt breast ca sp mastectomy) Hx Obesity: Yes - Additional Comments Anesthesia Medical History Comments: NAC
--- NOTE | 2016-12-13 10:29 | Anesthesia Day of Surgery ---
Anesthesia Day of Surgery - Day of Surgery Patient Examined: Yes Patient H&P Reviewed: Yes Patient is NPO: Yes Beta Blockers: Yes (took yesterday PM)
[2016-12-13] MEDS ORDERED: GI SPOT IJ ONE (11:01)
--- NOTE | 2016-12-13 11:23 | Post Operative Note ---
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 Colonoscopy: poor prep, old appearing blood seen throughout the colon. There were a few tics scattered throughout the colon. There is a circumferential mass at the hepatic flexure vs distal ascending colon causing mild/moderate obstruction ( pediatric colonoscope was advanced passed this segment and into the cecum). biopsies of the mass were obtained, and tattoo injection was placed distal to this mass. Procedure: EGD with dilatation Colonoscopy with biopsies and tattoo injection Anesthesia: MAC Surgeon: RASHEEDA CURRY Estimated blood loss: minimal Pathology: list (Jar A - colon mass biopsies) Specimen disposition: to lab Condition: stable Disposition: floor
--- NOTE | 2016-12-13 11:39 | Event Note ---
Date: 12/13/16 s/p EGD and colonoscopy (procedure notes dictated) EGD with non-obstructing B ring, s/p balloon dilatation Colonoscopy: circumferential mass in the hepatic flexure extending to distal ascending colon. Suspected malignancy. There was mild-moderate obstruction 2/2 mass, however able to pass pediatric colonoscope proximally into cecum. Recommendations: -f/u pathology -consult general surgery to evaluate for possible herman-colectomy -consult heme/onc -obtain CT of chest if not done for staging purposes -f/u CEA level
--- NOTE | 2016-12-13 12:18 | Operative Report ---
PREOPERATIVE DIAGNOSES: Intractable nausea/vomiting, dyspepsia. POSTOPERATIVE DIAGNOSES: Nonobstructing B-ring in the lower third of the esophagus s/p balloon dilatation, large hiatal hernia. ANESTHESIA: Monitored anesthesia care. COMPLICATIONS: No immediate complications. ESTIMATED BLOOD LOSS: Minimal. DESCRIPTION OF PROCEDURE: After consent was obtained, the patient was placed in left lateral decubitus position. The standard upper [employer]on endoscope was inserted the mouth under direct vision and advanced to the second portion of duodenum without difficulty. The patient tolerated the procedure fairly well. The views of mucosa were good. The patient's vital signs were monitored throughout the procedure. FINDINGS: There was a nonobstructing B-ring in the lower third of the esophagus. Balloon dilatation (to 18 mm) was performed TTS successfully (mild, expected heme noted post dilatation inspection). There was a moderate-sized hiatal hernia. The stomach and duodenum appeared normal. IMPRESSION: 1. Non-obstructing B-ring in the lower third of the esophagus, status post balloon dilatation. 2. Moderate-sized hiatal hernia. RECOMMENDATIONS: 1. Continue PPI daily before breakfast. 2. We will proceed with colonoscopy. JOB# [id number] SKIP/SANDRA SOLIZ
--- NOTE | 2016-12-13 13:33 | Operative Report ---
PROCEDURE: Colonoscopy. PREOPERATIVE DIAGNOSIS: Abnormal CT findings. POSTOPERATIVE DIAGNOSES: Circumferential mass in the hepatic flexure versus ascending colon. Old-appearing blood was seen throughout the procedure. ANESTHESIA: Monitored anesthesia care. COMPLICATIONS: No immediate complications. ESTIMATED BLOOD LOSS: Minimal. DESCRIPTION OF PROCEDURE: After consent was obtained, the patient was placed in left lateral decubitus position. The [employer] pediatric colonoscope was inserted into the rectum under direct vision and advanced to the cecum without difficulty. The views of the mucosa were poor. The quality of preparation was poor. The patient's vital signs were monitored continuously throughout the procedure. FINDINGS: There was a circumferential mass causing [id number] obstruction in the hepatic flexure versus ascending colon. The mass appeared to be malignant. Multiple biopsies were obtained. Tattoo injection was placed just distal to the mass. There were scattered diverticula throughout the colon. There was old-appearing blood visualized throughout the colon. IMPRESSION: 1. Circumferential mass in the hepatic flexure versus ascending colon, suspect malignancy. Multiple biopsies were obtained. Tattoo injection was placed distal to the mass. 2. Few scattered diverticula throughout the colon. RECOMMENDATIONS: 1. Follow up pathology. 2. Recommend surgery consult to evaluate for hemicolectomy. 3. Follow up CEA level. 4. Consult Hem-Onc. 5. Obtain CT of the chest if not done for staging purposes. 6. Surveillance colonoscopy in 6-12 months after surgery JOB# [id number] SKIP/SANDRA SOLIZ
--- NOTE | 2016-12-13 13:39 | Progress Note ---
Assessment and Plan Nausea/weakness CTA chest - no PE or dissection Awaits GI workup Hyponatremia Hypertension Afib, persistent on telemetry [facility] 01/2015 showed a mild non-obstructive disease, EF 65-70%. Plan: Rate control of her persistent atrial fibrillation. Following GI workup for her presenting GI symptoms, we will start her on oral anticoagulation therapy. Subjective Date of service: 12/13/16 Principal diagnosis: N/V, abd pain Interval history: Awaits GI workup. Objective Vital Signs Temp Pulse Resp BP Pulse Ox 12/13/16 11:48 56 L 17 148/66 99 12/13/16 11:33 54 L 16 129/56 99 12/13/16 11:18 97.9 F 63 11 L 112/54 95 12/13/16 10:05 97.8 F 58 L 19 149/62 97 12/13/16 09:52 97.8 F 58 L 19 149/62 97 12/13/16 08:20 98.2 F 54 L 16 132/60 100 12/13/16 04:05 98.1 F 62 22 136/63 98 12/13/16 00:31 98.2 F 56 L 22 146/68 100 12/12/16 22:00 69 12/12/16 19:59 97.9 F 70 22 137/65 12/12/16 17:00 97.0 F L 59 L 20 156/69 - Physical Examination General: No Apparent Distress HEENT: Positive: PERRL Neck: Positive: trachea midline Neuro: Positive: Grossly Intact Abdomen: Positive: Soft Skin: Positive: Clear Extremities: Absent: edema - Labs and Meds Coagulation 12/13/16 Range/Units 06:35 PT 14.6 (12.2-14.9) Sec. INR 1.15 H (0.87-1.13) - Imaging and Cardiology EKG: image reviewed
[2016-12-13] MEDS ORDERED: K-DUR PO ONE ×2 (14:23→17:20)
--- NOTE | 2016-12-13 14:30 | Progress Note ---
Assessment and Plan Assessment and plan: Abdominal pain - Likely from malignancy. - CT scan reveals circumferential thickening of the proximal colon. - CEA tumor marker id pending. - Colonoscopy and EGD suggestive of malignancy - Gen. surgery is consulted for possible hemicolectomy, hematology oncology is consulted for the management of malignancy which is the likely diagnosis Acute hypoxic respiratory failure. - Continue O2 for supportive care. - CT of the chest negative. - Echocardiogram per cardiology. Atrial fibrillation. - Continue carvedilol for rate control. - Her anticoagulation is held for the procedure - Will follow cardiology recommendation Hypertension. - Continue antihypertensive medications. Hyponatremia. - BMP from this morning pending Hypokalemia. - Repleted Nausea/vomiting/dyspepsia. - Continue antiemetics, PPI and supportive care with IV fluid hydration. Acute mild pancreatitis. - Lipase slightly elevated at 139. History Interval history: Patient was seen and evaluated, she is to have bloody bowel movement Hospitalist Physical - Physical exam Narrative exam: Not in cardiopulmonary distress. The patient appeared well nourished and normally developed. Vital signs as documented. Head exam is unremarkable. No scleral icterus . Neck is without jugular venous distension, thyromegaly, or carotid bruits. Lungs are clear to auscultation. Cardiac exam reveals regular rate and Rhythm. First and second heart sounds normal. No murmurs, rubs or gallops. Abdominal exam reveals normal bowel sounds, no masses, no organomegaly and no aortic enlargement. Extremities are nonedematous and both femoral and pedal pulses are normal. [employer]: Alert and oriented 3. No focal weakness. - Constitutional Vitals: Temp Pulse Resp BP Pulse Ox 97.9 F 56 L 17 148/66 99 12/13/16 11:18 12/13/16 11:48 12/13/16 11:48 12/13/16 11:48 12/13/16 11:48 General appearance: Present: no acute distress Results - Labs CBC & Chem 7: 12/12/16 04:30 12/12/16 04:30 Labs: Laboratory Last Values WBC 8.4 K/mm3 (4.5-11.0) 12/12/16 04:30 RBC 4.36 M/mm3 (3.65-5.03) 12/12/16 04:30 Hgb 11.6 gm/dl (10.1-14.3) 12/12/16 04:30 Hct 35.5 % (30.3-42.9) 12/12/16 04:30 MCV 82 fl (79-97) 12/12/16 04:30 MCH 27 pg (28-32) L 12/12/16 04:30 MCHC 33 % (30-34) 12/12/16 04:30 RDW 14.2 % (13.2-15.2) 12/12/16 04:30 Plt Count 281 K/mm3 (140-440) 12/12/16 04:30 Lymph % (Auto) 13.7 % (13.4-35.0) 12/12/16 04:30 [place] % (Auto) 12.1 % (0.0-7.3) H 12/12/16 04:30 Eos % (Auto) 0.8 % (0.0-4.3) 12/12/16 04:30 Baso % (Auto) 0.6 % (0.0-1.8) 12/12/16 04:30 Lymph # 1.1 K/mm3 (1.2-5.4) L 12/12/16 04:30 [place] # 1.0 K/mm3 (0.0-0.8) H 12/12/16 04:30 Eos # 0.1 K/mm3 (0.0-0.4) 12/12/16 04:30 Baso # 0.1 K/mm3 (0.0-0.1) 12/12/16 04:30 Add Manual Diff Complete 12/12/16 04:30 Seg Neutrophils % 72.8 % (40.0-70.0) H 12/12/16 04:30 Seg Neutrophils # 6.1 K/mm3 (1.8-7.7) 12/12/16 04:30 PT 14.6 Sec. (12.2-14.9) 12/13/16 06:35 INR 1.15 (0.87-1.13) H 12/13/16 06:35 D-Dimer 549.31 ng/mlDDU (0-234) H 12/07/16 23:36 Sodium 121 mmol/L (137-145) L 12/12/16 04:30 Potassium 3.3 mmol/L (3.6-5.0) L 12/12/16 04:30 Chloride 85.7 mmol/L (98-107) L 12/12/16 04:30 Carbon Dioxide 20 mmol/L (22-30) L 12/12/16 04:30 Anion Gap 19 mmol/L 12/12/16 04:30 BUN 10 mg/dL (7-17) 12/12/16 04:30 Creatinine 0.6 mg/dL (0.7-1.2) L 12/12/16 04:30 Estimated GFR > 60 ml/min 12/12/16 04:30 BUN/Creatinine Ratio 16.66 % 12/12/16 04:30 Glucose 93 mg/dL (65-100) 12/12/16 04:30 POC Glucose 108 (70-105) H 12/13/16 07:43 Calcium 8.6 mg/dL (8.4-10.2) 12/12/16 04:30 Phosphorus 2.40 mg/dL (2.5-4.5) L 12/07/16 17:37 Magnesium 1.60 mg/dL (1.7-2.3) L 12/07/16 17:37 Total Bilirubin 0.80 mg/dL (0.1-1.2) 12/10/16 05:37 AST 25 units/L (5-40) 12/10/16 05:37 ALT 11 units/L (7-56) 12/10/16 05:37 Alkaline Phosphatase 67 units/L (35-129) 12/10/16 05:37 Total Creatine Kinase 77 units/L (30-135) 12/08/16 04:45 CK-MB (CK-2) 4.5 ng/mL (0.0-4.0) H 12/08/16 04:45 CK-MB (CK-2) Rel Index 5.8 (0-4) H 12/08/16 04:45 Troponin T < 0.010 ng/mL (0.00-0.029) 12/08/16 04:45 NT-Pro-B Natriuret Pep 1229 pg/mL (0-900) H 12/07/16 17:37 Total Protein 6.7 g/dL (6.3-8.2) 12/10/16 05:37 Albumin 3.6 g/dL (3.9-5) L 12/10/16 05:37 Albumin/Globulin Ratio 1.2 % 12/10/16 05:37 Lipase 39 units/L (13-60) 12/12/16 04:30 TSH 2.930 mlU/mL (0.270-4.200) 12/10/16 05:37 Urine Color Yellow (Yellow) 12/07/16 21:24 Urine Turbidity Clear (Clear) 12/07/16 21:24 Urine pH 8.0 (5.0-7.0) H 12/07/16 21:24 Ur Specific [place] 1.012 (1.003-1.030) 12/07/16 21:24 Urine Protein 100 mg/dl mg/dL (Negative) 12/07/16 21:24 Urine Glucose (UA) Neg mg/dL (Negative) 12/07/16 21:24 Urine Ketones 20 mg/dL (Negative) 12/07/16 21:24 Urine Blood Neg (Negative) 12/07/16 21:24 Urine Nitrite Neg (Negative) 12/07/16 21:24 Urine Bilirubin Neg (Negative) 12/07/16 21:24 Urine Urobilinogen < 2.0 mg/dL (<2.0) 12/07/16 21:24 Ur Leukocyte Esterase Sm (Negative) 12/07/16 21:24 Urine WBC (Auto) 2.0 /HPF (0.0-6.0) 12/07/16 21:24 Urine RBC (Auto) 10.0 /HPF (0.0-6.0) 12/07/16 21:24 U Epithel Cells (Auto) 2.0 /HPF (0-13.0) 12/07/16 21:24 Urine Mucus Few /HPF 12/07/16 21:24 Hypokalemia
[2016-12-13 15:13] LABS: Hemoglobin 11.5 gm/dl (10.1-14.3)
[2016-12-13 15:27] LABS: Anion Gap 18 mmol/L; Blood Urea Nitrogen 10 mg/dL (7-17); Calcium 8.6 mg/dL (8.4-10.2); Carbon Dioxide 19 mmol/L (22-30); Chloride 92.7 mmol/L (98-107); Glucose 85 mg/dL (65-100); Potassium 4.1 mmol/L (3.6-5.0); Sodium 126 mmol/L (137-145)
[2016-12-13] MEDS: LOVENOX SUB-Q SCH ×2 (17:12→21:30)
[2016-12-13] MEDS: COREG PO SCH ×2 (17:12→21:28)
[2016-12-13] MEDS: PROTONIX PO SCH (18:10)
[2016-12-13] MEDS: D5NS 1,000 ML IV SCH (18:10)
--- NOTE | 2016-12-13 19:47 | Consultation ---
History of Present Illness Consult date: 12/13/16 Reason for consult: other (colon mass) - History of present illness History of present illness: 81 year old female with hx of abd pain, afib, not on anticoagulants, rate controlled, s/p colonoscopy with right colon mass, CEA pending, no liver mets or extracolonic mets on CT. Labs OK, will schedule for right hemicolectomy tommorrow at 1200 hrs. Past History Past Medical History: atrial fib, CAD, hypertension, other (Breast Cancer) Past Surgical History: hysterectomy Social history: denies: smoking, alcohol abuse Family history: hypertension Medications and Allergies Allergies Allergy/AdvReac Type Severity Reaction Status Date / Time adhesive Allergy Rash Verified 12/07/16 17:22 cyclobenzaprine Allergy Swelling Verified 12/07/16 17:22 acetaminophen [From Tylenol] AdvReac Unknown Verified 12/07/16 17:22 codeine AdvReac Nausea Verified 12/07/16 17:22 Home Medications Medication Instructions Recorded Confirmed Last Taken Type Carvedilol 12.5 mg PO BID 08/05/14 12/07/16 12/07/16 08:00 History Losartan Potassium 50 mg PO DAILY 08/05/14 12/07/16 12/07/16 08:00 History Pregabalin [Lyrica] 150 mg PO BID 08/05/14 12/07/16 12/07/16 08:00 History cycloSPORINE [Restasis 0.05%] 2 drop OU BID 08/05/14 12/07/16 12/06/16 21:00 History Triamter/Hctz 37.5-25 mg 0.5 tab PO QDAY 12/07/16 12/07/16 12/07/16 12:00 History [Maxzide-25] Active Meds: Active Medications Bisacodyl (Dulcolax) 10 mg IN QDAY PRN PRN Reason: Constipation unrelieved by MOM Carvedilol (Coreg) 25 mg PO BID REPLACED BY [facility] Last Admin: 12/13/16 17:12 Dose: Not Given Enoxaparin Sodium (Lovenox) 110 mg SUB-Q Q12HR REPLACED BY [facility] Last Admin: 12/13/16 17:12 Dose: Not Given Hydralazine HCl (Apresoline) 5 mg IV Q8HR REPLACED BY [facility] Last Admin: 12/13/16 17:15 Dose: Not Given Dextrose/Sodium Chloride (D5ns) 1,000 mls @ 75 mls/hr IV DIRECT REPLACED BY [facility] Last Admin: 12/13/16 18:10 Dose: 75 mls/hr Magnesium Hydroxide (Milk Of Magnesia) 30 ml PO Q4H PRN PRN Reason: Constipation Metoclopramide HCl (Reglan) 10 mg IV Q6H PRN PRN Reason: Nausea And Vomiting Last Admin: 12/09/16 13:10 Dose: 10 mg Ondansetron HCl (Zofran) 4 mg IV Q8H PRN PRN Reason: N/V unrelieved by Reglan Last Admin: 12/12/16 16:45 Dose: 4 mg Pantoprazole Sodium (Protonix) 40 mg PO QDAY REPLACED BY [facility] Last Admin: 12/13/16 18:10 Dose: 40 mg Review of Systems - Constitutional other (abd pain) Exam Vital Signs Temp Pulse Resp BP Pulse Ox 98.6 F 61 22 181/115 98 12/07/16 17:27 12/07/16 17:27 12/07/16 17:27 12/07/16 17:27 12/07/16 17:27 - General physical appearance Positive: no distress - Eyes Positive: PERRL, normal occular movement - ENT Positive: normal pinna, normal nares, normal mucosa, no hearing loss, no congestion - Neck Positive: no masses, no bruits, trachea midline, no venous distension - Respiratory Positive: normal expansion, normal respiratory effort, clear to auscultation - Cardiovascular Rhythm: irregularly irregular Heart Sounds: Present: S1 & S2. Absent: rub, click - Extremities Extremities: no ischemia Peripheral Pulses: within normal limits - Breasts Breasts: deferred - Abdomen Abdomen: Present: soft, bowel sounds normal Hernia: none - Neurologic Neurologic: alert and oriented to time, place and person, motor strength and sensation are grossly intact - Musculoskeletal normal gait, normal posture Results - Labs 12/13/16 14:29 12/13/16 14:29 Abnormal lab results 12/13/16 12/13/16 12/13/16 Range/Units 06:35 07:43 14:29 INR 1.15 H (0.87-1.13) Sodium 126 L (137-145) mmol/L Chloride 92.7 L (98-107) mmol/L Carbon Dioxide 19 L (22-30) mmol/L Creatinine 0.5 L (0.7-1.2) mg/dL POC Glucose 108 H (70-105) Diabetes panel 12/13/16 Range/Units 14:29 Sodium 126 L (137-145) mmol/L Potassium 4.1 D (3.6-5.0) mmol/L Chloride 92.7 L (98-107) mmol/L Carbon Dioxide 19 L (22-30) mmol/L BUN 10 (7-17) mg/dL Creatinine 0.5 L (0.7-1.2) mg/dL Glucose 85 (65-100) mg/dL Calcium 8.6 (8.4-10.2) mg/dL Calcium panel 12/13/16 Range/Units 14:29 Calcium 8.6 (8.4-10.2) mg/dL Pituitary panel 12/13/16 Range/Units 14:29 Sodium 126 L (137-145) mmol/L Potassium 4.1 D (3.6-5.0) mmol/L Chloride 92.7 L (98-107) mmol/L Carbon Dioxide 19 L (22-30) mmol/L BUN 10 (7-17) mg/dL Creatinine 0.5 L (0.7-1.2) mg/dL Glucose 85 (65-100) mg/dL Calcium 8.6 (8.4-10.2) mg/dL Adrenal panel 12/13/16 Range/Units 14:29 Sodium 126 L (137-145) mmol/L Potassium 4.1 D (3.6-5.0) mmol/L Chloride 92.7 L (98-107) mmol/L Carbon Dioxide 19 L (22-30) mmol/L BUN 10 (7-17) mg/dL Creatinine 0.5 L (0.7-1.2) mg/dL Glucose 85 (65-100) mg/dL Calcium 8.6 (8.4-10.2) mg/dL Assessment and Plan Right colon mass, probably malignant, path pending, had bowel prep for colonoscopy, labs OK will schedule for right hemicolectomy tommorrow at noon. CEA pending-sent preop, whether path is malignant or not mass needs to be resected. I spoke at length with patient and her oldest daughter at length.
[2016-12-13] MEDS: ZOFRAN IV PRN (21:29)
--- NOTE | 2016-12-13 21:40 | Consultation ---
History of Present Illness - Reason for Consult Consult date: 12/13/16 Colon mass. Requesting physician: EZEKIEL LAWSON - History of Present Illness Thank you for this consult. patient seen/examined, record reviewed, case d/w patient, and her family at the bed side, Q/A done. Kindly asked to see this pleasant elderly female, who presented after experiencing some blood per rectum , some abd pain, and N/V. She denied any major wt loss, but progressive weakness.CT scan, and GI work up have revealed a well rounded mass lesion on the right colon, with adjacent mesentery soft tissue nodule.There were no other lesions else where. CEA pending results. Patient is already scheduled for surgery in tomorrow am.Will await surgical finding , and eventual path report.As per patients account, she has had significant cancer hx, including resected melanoma in 2008 at [place]. She also had right breast cancer /mastectomy , followed by tamoxifen only 10 yrs ago.She also has hx of polypectomy 6-7yrs ao , and last colonoscopy was 5yrs ago with [facility]. 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 her daughter also have hx of polyps, and I have encouraged her to be very vigilant with surveillance GI scopes.I have told patient and family that depending on surgical findings, she may not need chemotherapy or radiation, especially given her advance age of 81 with other co morbid issues. Past History Past Medical History: atrial fib, CAD, cancer, hypertension, other (Breast Cancer) Past Surgical History: hysterectomy, Other (polypectomy.and mastectomy) Social history: denies: smoking, alcohol abuse Family history: cancer, hypertension Medications and Allergies Allergies Allergy/AdvReac Type Severity Reaction Status Date / Time adhesive Allergy Rash Verified 12/07/16 17:22 cyclobenzaprine Allergy Swelling Verified 12/07/16 17:22 acetaminophen [From Tylenol] AdvReac Unknown Verified 12/07/16 17:22 codeine AdvReac Nausea Verified 12/07/16 17:22 Home Medications Medication Instructions Recorded Confirmed Last Taken Type Carvedilol 12.5 mg PO BID 08/05/14 12/07/16 12/07/16 08:00 History Losartan Potassium 50 mg PO DAILY 08/05/14 12/07/16 12/07/16 08:00 History Pregabalin [Lyrica] 150 mg PO BID 08/05/14 12/07/16 12/07/16 08:00 History cycloSPORINE [Restasis 0.05%] 2 drop OU BID 08/05/14 12/07/16 12/06/16 21:00 History Triamter/Hctz 37.5-25 mg 0.5 tab PO QDAY 12/07/16 12/07/16 12/07/16 12:00 History [Maxzide-25] Active Meds: Active Medications Bisacodyl (Dulcolax) 10 mg [place] QDAY PRN PRN Reason: Constipation unrelieved by MOM Carvedilol (Coreg) 25 mg PO BID [facility] Last Admin: 12/13/16 17:12 Dose: Not Given Enoxaparin Sodium (Lovenox) 110 mg SUB-Q Q12HR [facility] Last Admin: 12/13/16 17:12 Dose: Not Given Hydralazine HCl (Apresoline) 5 mg IV Q8HR [facility] Last Admin: 12/13/16 17:15 Dose: Not Given Dextrose/Sodium Chloride (D5ns) 1,000 mls @ 75 mls/hr IV DIRECT [facility] Last Admin: 12/13/16 18:10 Dose: 75 mls/hr Magnesium Hydroxide (Milk Of Magnesia) 30 ml PO Q4H PRN PRN Reason: Constipation Metoclopramide HCl (Reglan) 10 mg IV Q6H PRN PRN Reason: Nausea And Vomiting Last Admin: 12/09/16 13:10 Dose: 10 mg Ondansetron HCl (Zofran) 4 mg IV Q8H PRN PRN Reason: N/V unrelieved by Reglan Last Admin: 12/12/16 16:45 Dose: 4 mg Pantoprazole Sodium (Protonix) 40 mg PO QDAY [facility] Last Admin: 12/13/16 18:10 Dose: 40 mg Review of Systems Constitutional: fatigue, weakness Breasts: deferred Cardiovascular: rapid/irregular heart beat Gastrointestinal: nausea, vomiting, change in bowel habits Exam - Constitutional Vitals: Temp Pulse Resp BP Pulse Ox 97.8 F 64 20 168/81 98 12/13/16 20:03 12/13/16 20:03 12/13/16 20:43 12/13/16 20:03 12/13/16 20:03 General appearance: Present: mild distress, well-nourished - EENT Eyes: Present: PERRL ENT: hearing intact, clear oral mucosa - Neck Neck: Present: supple, normal ROM - Respiratory Respiratory effort: normal Respiratory: bilateral: CTA - Cardiovascular Heart Sounds: Present: S1 & S2. Absent: rub, click - Extremities Extremities: pulses symmetrical, No edema Peripheral Pulses: within normal limits - Abdominal General gastrointestinal: Present: soft, non-tender, non-distended, normal bowel sounds, mass Female genitourinary: Present: deferred - Rectal Rectal Exam: deferred - Integumentary Integumentary: Present: clear, warm, dry - Musculoskeletal Musculoskeletal: gait normal, strength equal bilaterally - Psychiatric Psychiatric: appropriate mood/affect, intact judgment & insight - Neurologic Neurologic: CNII-XII intact, moves all extremities Results - Labs CBC & Chem 7: 12/13/16 14:29 12/13/16 14:29 Labs: Abnormal lab results 12/13/16 12/13/16 12/13/16 Range/Units 06:35 07:43 14:29 INR 1.15 H (0.87-1.13) Sodium 126 L (137-145) mmol/L Chloride 92.7 L (98-107) mmol/L Carbon Dioxide 19 L (22-30) mmol/L Creatinine 0.5 L (0.7-1.2) mg/dL POC Glucose 108 H (70-105) Assessment and Plan - Patient Problems (1) Abnormal loss of weight Current Visit: Yes Status: Acute Plan to address problem: very mild as per patient, less than 5% of her body mass. (2) Atrial fibrillation Current Visit: Yes Status: Acute Qualifiers: Atrial fibrillation type: A Plan to address problem: to be kept in mind with surgery. (3) Hyponatremia Current Visit: Yes Status: Acute Plan to address problem: hydration judiciously. (4) Colonic mass Current Visit: Yes Status: Acute Plan to address problem: Scheduled for resection tomorrow.
[2016-12-13] MEDS ORDERED: NACL 0.9% 500 ML 500 ML IV ONE (22:05)
[2016-12-13] MEDS ORDERED: NACL 0.45% 500 ML IV ONE (22:05)
[2016-12-14 05:28] LABS: Basophils % (Auto) 0.5 % (0.0-1.8); Eosinophils % (Auto) 0.6 % (0.0-4.3); Hematocrit 32.6 % (30.3-42.9); Hemoglobin 10.8 gm/dl (10.1-14.3); Mean Corpuscular HGB Conc 33 % (30-34); Mean Corpuscular Hemoglobin 27 pg (28-32); Mean Corpuscular Volume 80 fl (79-97); Platelet Count 304 K/mm3 (140-440); Red Blood Count 4.08 M/mm3 (3.65-5.03); Red Cell Distribution Width 14.5 % (13.2-15.2); White Blood Count 10.9 K/mm3 (4.5-11.0)
[2016-12-14 05:38] LABS: INR 1.15 (0.87-1.13)
[2016-12-14 05:48] LABS: Anion Gap 17 mmol/L; Blood Urea Nitrogen 9 mg/dL (7-17); Calcium 8.9 mg/dL (8.4-10.2); Carbon Dioxide 22 mmol/L (22-30); Chloride 93.4 mmol/L (98-107); Glucose 103 mg/dL (65-100); Potassium 3.6 mmol/L (3.6-5.0); Sodium 129 mmol/L (137-145)
--- NOTE | 2016-12-14 08:49 | Event Note ---
Date: 12/14/16 Pt had episode of significant bradyarrythmia last pm with HR in 20s, will cancel surgery today and obtain Cardiology clearance for surgery, clear liquid diet OK.
--- NOTE | 2016-12-14 09:38 | Progress Note ---
Assessment and Plan Nausea/weakness CTA chest - no PE or dissection s/p colonoscopy: Right colon mass Hyponatremia Hypertension Afib, paroxysmal ventricular pause on telemetry overnight [facility] 01/2015 showed a mild non-obstructive disease, EF 65-70%. Subjective Date of service: 12/14/16 Principal diagnosis: N/V, abd pain Interval history: Code MET called overnight. Noted significant pause on telemetry last night. It' s reported the patient was sitting on the toilet during the transient pause. Following the pause, the patient returned to atrial fibrillation with a well controlled ventricular rate. Objective Vital Signs Temp Pulse Resp BP Pulse Ox 12/14/16 08:46 97.8 F 69 18 116/66 97 12/14/16 04:38 97.6 F 84 18 112/53 97 12/14/16 00:22 98.9 F 67 18 106/52 97 12/13/16 22:35 95 12/13/16 21:29 64 168/81 12/13/16 21:28 64 168/81 12/13/16 20:43 20 12/13/16 20:03 97.8 F 64 20 168/81 98 12/13/16 20:00 59 L 12/13/16 16:04 98.1 F 64 16 146/65 99 12/13/16 11:48 56 L 17 148/66 99 12/13/16 11:33 54 L 16 129/56 99 12/13/16 11:18 97.9 F 63 11 L 112/54 95 12/13/16 10:05 97.8 F 58 L 19 149/62 97 12/13/16 10:00 63 12/13/16 09:52 97.8 F 58 L 19 149/62 97 - Physical Examination General: No Apparent Distress HEENT: Positive: PERRL Neck: Positive: trachea midline Neuro: Positive: Grossly Intact Abdomen: Positive: Soft Skin: Positive: Clear Extremities: Absent: edema - Labs and Meds Cardiac Enzymes 12/13/16 Range/Units 22:08 Lactate Dehydrogenase 192 H (91-180) units/L Coagulation 12/14/16 Range/Units 04:43 PT 14.6 (12.2-14.9) Sec. INR 1.15 H (0.87-1.13) CBC 12/13/16 12/14/16 Range/Units 14:29 04:43 WBC 10.9 (4.5-11.0) K/mm3 RBC 4.08 (3.65-5.03) M/mm3 Hgb 11.5 10.8 (10.1-14.3) gm/dl Hct 35.0 32.6 (30.3-42.9) % Plt Count 304 (140-440) K/mm3 Lymph # 1.1 L (1.2-5.4) K/mm3 [place] # 1.3 H (0.0-0.8) K/mm3 Eos # 0.1 (0.0-0.4) K/mm3 Baso # 0.1 (0.0-0.1) K/mm3 Comprehensive Metabolic Panel 12/13/16 12/14/16 Range/Units 14:29 04:43 Sodium 126 L 129 L (137-145) mmol/L Potassium 4.1 D 3.6 (3.6-5.0) mmol/L Chloride 92.7 L 93.4 L (98-107) mmol/L Carbon Dioxide 19 L 22 (22-30) mmol/L BUN 10 9 (7-17) mg/dL Creatinine 0.5 L 0.5 L (0.7-1.2) mg/dL Glucose 85 103 H (65-100) mg/dL Calcium 8.6 8.9 (8.4-10.2) mg/dL - Imaging and Cardiology EKG: image reviewed
[2016-12-14] MEDS: LOVENOX SUB-Q SCH ×2 (11:07→21:48)
[2016-12-14] MEDS: PROTONIX PO SCH (11:08)
[2016-12-14] MEDS: COREG PO SCH ×2 (11:08→21:46)
[2016-12-14] MEDS ORDERED: COREG PO SCH (12:11)
--- NOTE | 2016-12-14 15:02 | Progress Note ---
Assessment and Plan Assessment and plan: Abdominal pain - Likely from malignancy. - CT scan reveals circumferential thickening of the proximal colon. - tumor marker pending. - Colonoscopy and EGD suggestive of malignancy - Gen. surgery is consulted for possible hemicolectomy, but cancelled due to hypotension and bradycardia. Acute hypoxic respiratory failure. - Continue O2 for supportive care. - CT of the chest negative. - Echocardiogram per cardiology. Atrial fibrillation. - Continue carvedilol for rate control. - Will follow cardiology recommendation Hypertension. - Continue antihypertensive medications. Hyponatremia. - BMP from this morning pending Hypokalemia. - Repleted Nausea/vomiting/dyspepsia. - Continue antiemetics, PPI and supportive care with IV fluid hydration. Acute mild pancreatitis. - Resolved History Interval history: Patient was seen and evaluated, surgery was cancelled due to event overnight, Hypotension and bradycardia. Hospitalist Physical - Physical exam Narrative exam: Not in cardiopulmonary distress. The patient appeared well nourished and normally developed. Vital signs as documented. Head exam is unremarkable. No scleral icterus . Neck is without jugular venous distension, thyromegaly, or carotid bruits. Lungs are clear to auscultation. Cardiac exam reveals regular rate and Rhythm. First and second heart sounds normal. No murmurs, rubs or gallops. Abdominal exam reveals normal bowel sounds, no masses, no organomegaly and no aortic enlargement. Extremities are nonedematous and both femoral and pedal pulses are normal. 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 No focal weakness. - Constitutional Vitals: Temp Pulse Resp BP Pulse Ox 97.3 F L 70 18 128/62 100 12/14/16 12:05 12/14/16 12:05 12/14/16 12:05 12/14/16 12:05 12/14/16 12:05 General appearance: Present: mild distress, well-nourished Results - Labs CBC & Chem 7: 12/14/16 04:43 12/14/16 04:43 Labs: Laboratory Last Values WBC 10.9 K/mm3 (4.5-11.0) 12/14/16 04:43 RBC 4.08 M/mm3 (3.65-5.03) 12/14/16 04:43 Hgb 10.8 gm/dl (10.1-14.3) 12/14/16 04:43 Hct 32.6 % (30.3-42.9) 12/14/16 04:43 MCV 80 fl (79-97) 12/14/16 04:43 MCH 27 pg (28-32) L 12/14/16 04:43 MCHC 33 % (30-34) 12/14/16 04:43 RDW 14.5 % (13.2-15.2) 12/14/16 04:43 Plt Count 304 K/mm3 (140-440) 12/14/16 04:43 Lymph % (Auto) 10.1 % (13.4-35.0) L 12/14/16 04:43 [place] % (Auto) 11.7 % (0.0-7.3) H 12/14/16 04:43 Eos % (Auto) 0.6 % (0.0-4.3) 12/14/16 04:43 Baso % (Auto) 0.5 % (0.0-1.8) 12/14/16 04:43 Lymph # 1.1 K/mm3 (1.2-5.4) L 12/14/16 04:43 [place] # 1.3 K/mm3 (0.0-0.8) H 12/14/16 04:43 Eos # 0.1 K/mm3 (0.0-0.4) 12/14/16 04:43 Baso # 0.1 K/mm3 (0.0-0.1) 12/14/16 04:43 Add Manual Diff Complete 12/12/16 04:30 Seg Neutrophils % 77.1 % (40.0-70.0) H 12/14/16 04:43 Seg Neutrophils # 8.4 K/mm3 (1.8-7.7) H 12/14/16 04:43 PT 14.6 Sec. (12.2-14.9) 12/14/16 04:43 INR 1.15 (0.87-1.13) H 12/14/16 04:43 D-Dimer 549.31 ng/mlDDU (0-234) H 12/07/16 23:36 Sodium 129 mmol/L (137-145) L 12/14/16 04:43 Potassium 3.6 mmol/L (3.6-5.0) 12/14/16 04:43 Chloride 93.4 mmol/L (98-107) L 12/14/16 04:43 Carbon Dioxide 22 mmol/L (22-30) 12/14/16 04:43 Anion Gap 17 mmol/L 12/14/16 04:43 BUN 9 mg/dL (7-17) 12/14/16 04:43 Creatinine 0.5 mg/dL (0.7-1.2) L 12/14/16 04:43 Estimated GFR > 60 ml/min 12/14/16 04:43 BUN/Creatinine Ratio 18.00 % 12/14/16 04:43 Glucose 103 mg/dL (65-100) H 12/14/16 04:43 POC Glucose 100 (70-105) 12/13/16 21:56 Calcium 8.9 mg/dL (8.4-10.2) 12/14/16 04:43 Phosphorus 2.40 mg/dL (2.5-4.5) L 12/07/16 17:37 Magnesium 1.60 mg/dL (1.7-2.3) L 12/07/16 17:37 Total Bilirubin 0.80 mg/dL (0.1-1.2) 12/10/16 05:37 AST 25 units/L (5-40) 12/10/16 05:37 ALT 11 units/L (7-56) 12/10/16 05:37 Alkaline Phosphatase 67 units/L (35-129) 12/10/16 05:37 Lactate Dehydrogenase 192 units/L (91-180) H 12/13/16 22:08 Total Creatine Kinase 77 units/L (30-135) 12/08/16 04:45 CK-MB (CK-2) 4.5 ng/mL (0.0-4.0) H 12/08/16 04:45 CK-MB (CK-2) Rel Index 5.8 (0-4) H 12/08/16 04:45 Troponin T < 0.010 ng/mL (0.00-0.029) 12/08/16 04:45 NT-Pro-B Natriuret Pep 1229 pg/mL (0-900) H 12/07/16 17:37 Total Protein 6.7 g/dL (6.3-8.2) 12/10/16 05:37 Albumin 3.6 g/dL (3.9-5) L 12/10/16 05:37 Albumin/Globulin Ratio 1.2 % 12/10/16 05:37 Lipase 39 units/L (13-60) 12/12/16 04:30 TSH 2.930 mlU/mL (0.270-4.200) 12/10/16 05:37 Urine Color Yellow (Yellow) 12/07/16 21:24 Urine Turbidity Clear (Clear) 12/07/16 21:24 Urine pH 8.0 (5.0-7.0) H 12/07/16 21:24 Ur Specific [place] 1.012 (1.003-1.030) 12/07/16 21:24 Urine Protein 100 mg/dl mg/dL (Negative) 12/07/16 21:24 Urine Glucose (UA) Neg mg/dL (Negative) 12/07/16 21:24 Urine Ketones 20 mg/dL (Negative) 12/07/16 21:24 Urine Blood Neg (Negative) 12/07/16 21:24 Urine Nitrite Neg (Negative) 12/07/16 21:24 Urine Bilirubin Neg (Negative) 12/07/16 21:24 Urine Urobilinogen < 2.0 mg/dL (<2.0) 12/07/16 21:24 Ur Leukocyte Esterase Sm (Negative) 12/07/16 21:24 Urine WBC (Auto) 2.0 /HPF (0.0-6.0) 12/07/16 21:24 Urine RBC (Auto) 10.0 /HPF (0.0-6.0) 12/07/16 21:24 U Epithel Cells (Auto) 2.0 /HPF (0-13.0) 12/07/16 21:24 Urine Mucus Few /HPF 12/07/16 21:24
--- NOTE | 2016-12-14 18:22 | Consultation ---
History of Present Illness - Reason for Consult Consult date: 12/14/16 - History of Present Illness Patient seen/ examined, resting in bed, case d/w she, and her daughter at the bed side. Surgery postponed for obvious reason. Will need clearance cardiac lafleur.Labs reviewed, and ok. Past History Past Medical History: atrial fib, CAD, cancer, hypertension, other (Breast Cancer) Past Surgical History: hysterectomy, Other (polypectomy.and mastectomy) Social history: denies: smoking, alcohol abuse Family history: cancer, hypertension Medications and Allergies Allergies Allergy/AdvReac Type Severity Reaction Status Date / Time adhesive Allergy Rash Verified 12/07/16 17:22 cyclobenzaprine Allergy Swelling Verified 12/07/16 17:22 acetaminophen [From Tylenol] AdvReac Unknown Verified 12/07/16 17:22 codeine AdvReac Nausea Verified 12/07/16 17:22 Home Medications Medication Instructions Recorded Confirmed Last Taken Type Carvedilol 12.5 mg PO BID 08/05/14 12/07/16 12/07/16 08:00 History Losartan Potassium 50 mg PO DAILY 08/05/14 12/07/16 12/07/16 08:00 History Pregabalin [Lyrica] 150 mg PO BID 08/05/14 12/07/16 12/07/16 08:00 History cycloSPORINE [Restasis 0.05%] 2 drop OU BID 08/05/14 12/07/16 12/06/16 21:00 History Triamter/Hctz 37.5-25 mg 0.5 tab PO QDAY 12/07/16 12/07/16 12/07/16 12:00 History [Maxzide-25] Active Meds: Active Medications Bisacodyl (Dulcolax) 10 mg [place] QDAY PRN PRN Reason: Constipation unrelieved by MOM Carvedilol (Coreg) 12.5 mg PO BID MIOL Enoxaparin Sodium (Lovenox) 110 mg SUB-Q Q12HR MILO Last Admin: 12/14/16 11:07 Dose: Not Given Dextrose/Sodium Chloride (D5ns) 1,000 mls @ 75 mls/hr IV DIRECT MILO Last Admin: 12/13/16 18:10 Dose: 75 mls/hr Magnesium Hydroxide (Milk Of Magnesia) 30 ml PO Q4H PRN PRN Reason: Constipation Metoclopramide HCl (Reglan) 10 mg IV Q6H PRN PRN Reason: Nausea And Vomiting Last Admin: 12/09/16 13:10 Dose: 10 mg Ondansetron HCl (Zofran) 4 mg IV Q8H PRN PRN Reason: N/V unrelieved by Reglan Last Admin: 12/13/16 21:29 Dose: 4 mg Pantoprazole Sodium (Protonix) 40 mg PO QDAY MILO Last Admin: 12/14/16 11:08 Dose: 40 mg Review of Systems Constitutional: chronic pain Breasts: deferred Exam - Constitutional Vitals: Temp Pulse Resp BP Pulse Ox 97.0 F L 71 18 115/59 97 12/14/16 18:14 12/14/16 18:14 12/14/16 18:14 12/14/16 18:14 12/14/16 18:14 General appearance: Present: mild distress, well-nourished - EENT Eyes: Present: PERRL ENT: hearing intact, clear oral mucosa - Neck Neck: Present: supple, normal ROM - Respiratory Respiratory effort: normal Respiratory: bilateral: CTA - Cardiovascular Rhythm: irregularly irregular Heart Sounds: Present: S1 & S2. Absent: rub, click - Extremities Extremities: pulses symmetrical, No edema Peripheral Pulses: within normal limits - Abdominal General gastrointestinal: Present: soft, non-tender, non-distended, normal bowel sounds Female genitourinary: Present: deferred - Rectal Rectal Exam: deferred - Integumentary Integumentary: Present: clear, warm, dry - Musculoskeletal Musculoskeletal: gait normal, strength equal bilaterally - Psychiatric Psychiatric: appropriate mood/affect, intact judgment & insight - Neurologic Neurologic: CNII-XII intact, moves all extremities Results - Labs CBC & Chem 7: 12/14/16 04:43 12/14/16 04:43 Labs: Abnormal lab results 12/13/16 12/13/16 12/14/16 Range/Units 15:36 22:08 04:43 MCH 27 L (28-32) pg Lymph % (Auto) 10.1 L (13.4-35.0) % [place] % (Auto) 11.7 H (0.0-7.3) % Lymph # 1.1 L (1.2-5.4) K/mm3 [place] # 1.3 H (0.0-0.8) K/mm3 Seg Neutrophils % 77.1 H (40.0-70.0) % Seg Neutrophils # 8.4 H (1.8-7.7) K/mm3 INR (0.87-1.13) Sodium (137-145) mmol/L Chloride (98-107) mmol/L Creatinine (0.7-1.2) mg/dL Glucose (65-100) mg/dL POC Glucose 67 L (70-105) Lactate Dehydrogenase 192 H (91-180) units/L 12/14/16 12/14/16 Range/Units 04:43 04:43 MCH (28-32) pg Lymph % (Auto) (13.4-35.0) % [place] % (Auto) (0.0-7.3) % Lymph # (1.2-5.4) K/mm3 [place] # (0.0-0.8) K/mm3 Seg Neutrophils % (40.0-70.0) % Seg Neutrophils # (1.8-7.7) K/mm3 INR 1.15 H (0.87-1.13) Sodium 129 L (137-145) mmol/L Chloride 93.4 L (98-107) mmol/L Creatinine 0.5 L (0.7-1.2) mg/dL Glucose 103 H (65-100) mg/dL POC Glucose (70-105) Lactate Dehydrogenase (91-180) units/L Assessment and Plan - Patient Problems (1) Abnormal loss of weight Current Visit: Yes Status: Acute Plan to address problem: very mild as per patient, less than 5% of her body mass. (2) Atrial fibrillation Current Visit: Yes Status: Acute Qualifiers: Atrial fibrillation type: A Plan to address problem: to be kept in mind with surgery. (3) Hyponatremia Current Visit: Yes Status: Acute Plan to address problem: hydration judiciously. (4) Colonic mass Current Visit: Yes Status: Acute Plan to address problem: Scheduled for resection tomorrow. See notes above.
[2016-12-15 07:50] LABS: Basophils % (Auto) 0.4 % (0.0-1.8); Eosinophils % (Auto) 3.4 % (0.0-4.3); Hematocrit 29.9 % (30.3-42.9); Hemoglobin 9.9 gm/dl (10.1-14.3); Mean Corpuscular HGB Conc 33 % (30-34); Mean Corpuscular Hemoglobin 27 pg (28-32); Mean Corpuscular Volume 81 fl (79-97); Platelet Count 296 K/mm3 (140-440); Red Cell Distribution Width 14.4 % (13.2-15.2); White Blood Count 8.1 K/mm3 (4.5-11.0)
[2016-12-15 07:53] LABS: Anion Gap 14 mmol/L; Blood Urea Nitrogen 6 mg/dL (7-17); Calcium 8.6 mg/dL (8.4-10.2); Carbon Dioxide 23 mmol/L (22-30); Chloride 96.8 mmol/L (98-107); Glucose 90 mg/dL (65-100); Potassium 3.7 mmol/L (3.6-5.0); Sodium 130 mmol/L (137-145)
--- NOTE | 2016-12-15 09:09 | Event Note ---
Date: 12/15/16 Pathology from colonoscopy revealed adenocarcinoma (phone call received from pathology). Surgery following, noted plans for OR once stable from cardiac stand point. Will sign off, patient will need to f/u in GI clinic after surgery /discharge for surveillance colonoscopy once herman-colectomy performed. Please call as needed or with questions.
--- NOTE | 2016-12-15 09:59 | Progress Note ---
Assessment and Plan Nausea/weakness CTA chest - no PE or dissection s/p colonoscopy: Right colon mass Hyponatremia Hypertension Afib, paroxysmal patient is on lovenox Tele showed a long pauses noted while patient is straining on the toilet, likely vagally mediated coreg reduced to 12.5mg bid. No reoccurrence. [facility] 01/2015 showed a mild non-obstructive disease, EF 65-70%. Recommend: Continue to monitor on telemetry. Subjective Date of service: 12/15/16 Principal diagnosis: N/V, abd pain Interval history: No events on telemetry overnight. Objective Vital Signs Temp Pulse Resp BP Pulse Ox 12/15/16 08:53 97.5 F L 61 20 121/60 94 12/15/16 04:46 98.4 F 107 H 20 107/57 98 12/14/16 23:44 97.8 F 63 19 119/60 98 12/14/16 22:00 69 12/14/16 21:46 70 128/61 12/14/16 20:36 18 12/14/16 19:18 98.1 F 64 18 112/65 98 12/14/16 18:14 97.0 F L 71 18 115/59 97 12/14/16 12:05 97.3 F L 70 18 128/62 100 12/14/16 11:48 80 - Physical Examination General: No Apparent Distress HEENT: Positive: PERRL Neck: Positive: trachea midline Cardiac: Positive: Reg Rate and Rhythm Neuro: Positive: Grossly Intact Abdomen: Positive: Soft Skin: Positive: Clear Extremities: Absent: edema - Labs and Meds CBC 12/15/16 Range/Units 07:20 WBC 8.1 (4.5-11.0) K/mm3 RBC 3.70 (3.65-5.03) M/mm3 Hgb 9.9 L (10.1-14.3) gm/dl Hct 29.9 L (30.3-42.9) % Plt Count 296 (140-440) K/mm3 Lymph # 1.4 (1.2-5.4) K/mm3 [place] # 1.0 H (0.0-0.8) K/mm3 Eos # 0.3 (0.0-0.4) K/mm3 Baso # 0.0 (0.0-0.1) K/mm3 Comprehensive Metabolic Panel 12/15/16 Range/Units 07:20 Sodium 130 L (137-145) mmol/L Potassium 3.7 (3.6-5.0) mmol/L Chloride 96.8 L (98-107) mmol/L Carbon Dioxide 23 (22-30) mmol/L BUN 6 L (7-17) mg/dL Creatinine 0.5 L (0.7-1.2) mg/dL Glucose 90 (65-100) mg/dL Calcium 8.6 (8.4-10.2) mg/dL - Imaging and Cardiology EKG: image reviewed
[2016-12-15] MEDS: LOVENOX SUB-Q SCH ×2 (10:12→21:46)
--- NOTE | 2016-12-15 10:43 | XRay Report ---
AP CHEST: 12/15/16 10:00 CLINICAL: PICC line placement. COMPARISON: 12/07/16 FINDINGS: Since the last exam, a left PICC line has been inserted and the catheter tip is in the distal SVC at the caval atrial junction. New patchy opacities in the left lung base with silhouetting of the left hemidiaphragm. Stable cardiomegaly and large central pulmonary arteries. The right lung is clear.No pneumothorax. IMPRESSION: Satisfactory placement of the PICC line. Suspect left lower lobe pneumonia.
--- NOTE | 2016-12-15 12:20 | Consultation ---
History of Present Illness - Reason for Consult Consult date: 12/15/16 - History of Present Illness Patient seen/examined, labs reviewed, case d/w patient, and the daughter at the bed side. As per the nurse, surgery is scheduled for this afternoon, and this have been related to the family. Past History Past Medical History: atrial fib, CAD, cancer, hypertension, other (Breast Cancer) Past Surgical History: hysterectomy, Other (polypectomy.and mastectomy) Social history: denies: smoking, alcohol abuse Family history: cancer, hypertension Medications and Allergies Allergies Allergy/AdvReac Type Severity Reaction Status Date / Time adhesive Allergy Rash Verified 12/07/16 17:22 cyclobenzaprine Allergy Swelling Verified 12/07/16 17:22 acetaminophen [From Tylenol] AdvReac Unknown Verified 12/07/16 17:22 codeine AdvReac Nausea Verified 12/07/16 17:22 Home Medications Medication Instructions Recorded Confirmed Last Taken Type Carvedilol 12.5 mg PO BID 08/05/14 12/07/16 12/07/16 08:00 History Losartan Potassium 50 mg PO DAILY 08/05/14 12/07/16 12/07/16 08:00 History Pregabalin [Lyrica] 150 mg PO BID 08/05/14 12/07/16 12/07/16 08:00 History cycloSPORINE [Restasis 0.05%] 2 drop OU BID 08/05/14 12/07/16 12/06/16 21:00 History Triamter/Hctz 37.5-25 mg 0.5 tab PO QDAY 12/07/16 12/07/16 12/07/16 12:00 History [Maxzide-25] Active Meds: Active Medications Bisacodyl (Dulcolax) 10 mg [place] QDAY PRN PRN Reason: Constipation unrelieved by MOM Carvedilol (Coreg) 12.5 mg PO BID COUNT INCLUDES THE [facility] Last Admin: 12/14/16 21:46 Dose: 12.5 mg Enoxaparin Sodium (Lovenox) 110 mg SUB-Q Q12HR COUNT INCLUDES THE [facility] Last Admin: 12/15/16 10:12 Dose: Not Given Dextrose/Sodium Chloride (D5ns) 1,000 mls @ 75 mls/hr IV DIRECT COUNT INCLUDES THE [facility] Last Admin: 12/13/16 18:10 Dose: 75 mls/hr Magnesium Hydroxide (Milk Of Magnesia) 30 ml PO Q4H PRN PRN Reason: Constipation Metoclopramide HCl (Reglan) 10 mg IV Q6H PRN PRN Reason: Nausea And Vomiting Last Admin: 12/09/16 13:10 Dose: 10 mg Ondansetron HCl (Zofran) 4 mg IV Q8H PRN PRN Reason: N/V unrelieved by Reglan Last Admin: 12/13/16 21:29 Dose: 4 mg Pantoprazole Sodium (Protonix) 40 mg PO QDAY MILO Last Admin: 12/14/16 11:08 Dose: 40 mg Review of Systems Constitutional: fatigue, weakness, lethargy Breasts: deferred Exam - Constitutional Vitals: Temp Pulse Resp BP Pulse Ox 97.5 F L 64 20 121/60 95 12/15/16 08:53 12/15/16 11:01 12/15/16 11:01 12/15/16 08:53 12/15/16 11:01 General appearance: Present: well-nourished - EENT Eyes: Present: PERRL ENT: hearing intact, clear oral mucosa - Neck Neck: Present: supple, normal ROM - Cardiovascular Heart Sounds: Present: S1 & S2. Absent: rub, click - Extremities Extremities: pulses symmetrical, No edema Peripheral Pulses: within normal limits - Abdominal General gastrointestinal: Present: soft, non-tender, non-distended, normal bowel sounds Female genitourinary: Present: deferred, normal - Rectal Rectal Exam: deferred - Integumentary Integumentary: Present: clear, warm, dry - Musculoskeletal Musculoskeletal: gait normal, strength equal bilaterally - Psychiatric Psychiatric: appropriate mood/affect, intact judgment & insight - Neurologic Neurologic: CNII-XII intact, moves all extremities Results - Labs CBC & Chem 7: 12/15/16 07:20 12/15/16 07:20 Labs: Abnormal lab results 12/14/16 12/15/16 12/15/16 Range/Units 07:39 07:20 07:20 Hgb 9.9 L (10.1-14.3) gm/dl Hct 29.9 L (30.3-42.9) % MCH 27 L (28-32) pg [place] % (Auto) 12.4 H (0.0-7.3) % [place] # 1.0 H (0.0-0.8) K/mm3 Sodium 130 L (137-145) mmol/L Chloride 96.8 L (98-107) mmol/L BUN 6 L (7-17) mg/dL Creatinine 0.5 L (0.7-1.2) mg/dL POC Glucose 107 H (70-105) Assessment and Plan - Patient Problems (1) Abnormal loss of weight Current Visit: Yes Status: Acute Plan to address problem: very mild as per patient, less than 5% of her body mass. (2) Atrial fibrillation Current Visit: Yes Status: Acute Qualifiers: Atrial fibrillation type: A Plan to address problem: to be kept in mind with surgery. cardiology on the case. (3) Hyponatremia Current Visit: Yes Status: Acute Plan to address problem: hydration judiciously. (4) Colonic mass Current Visit: Yes Status: Acute Plan to address problem: Scheduled for resection tomorrow. See notes above. Supposedly set for surgery this afternoon.
[2016-12-15] MEDS: COREG PO SCH ×2 (12:26→21:46)
[2016-12-15] MEDS: PROTONIX PO SCH (12:26)
--- NOTE | 2016-12-15 16:21 | Progress Note ---
Assessment and Plan Assessment and plan: Abdominal pain - Likely from malignancy. - CT scan reveals circumferential thickening of the proximal colon. - tumor marker pending. - Biopsy showed adenocarcinoma of the colon - Awaiting surgery for a hemicolectomy Acute hypoxic respiratory failure. - Resolving - Continue O2 for supportive care. - CT of the chest negative. Atrial fibrillation. - Continue carvedilol for rate control. - on lovenox Hypertension. - Continue antihypertensive medications. - Blood pressures going up and down Hyponatremia. - Sodium from this morning is 130 Hypokalemia. - Repleted Nausea/vomiting/dyspepsia. - Continue antiemetics, PPI and supportive care with IV fluid hydration. Acute mild pancreatitis. - Resolved History Interval history: Patient was seen and evaluated, patient was resting well not in pain or distress. Hospitalist Physical - Physical exam Narrative exam: Not in cardiopulmonary distress. The patient appeared well nourished and normally developed. Vital signs as documented. Head exam is unremarkable. No scleral icterus . Neck is without jugular venous distension, thyromegaly, or carotid bruits. Lungs are clear to auscultation. Cardiac exam reveals regular rate and Rhythm. First and second heart sounds normal. No murmurs, rubs or gallops. Abdominal exam reveals normal bowel sounds, no masses, no organomegaly and no aortic enlargement. Extremities are nonedematous and both femoral and pedal pulses are normal. REGULATORY COORDINATOR: Alert and oriented 3. No focal weakness. - Constitutional Vitals: Temp Pulse Resp BP Pulse Ox 98.1 F 71 18 163/73 99 12/15/16 12:20 12/15/16 12:20 12/15/16 12:20 12/15/16 12:20 12/15/16 12:20 General appearance: Present: well-nourished Results - Labs CBC & Chem 7: 12/15/16 07:20 12/15/16 07:20 Labs: Laboratory Last Values WBC 8.1 K/mm3 (4.5-11.0) 12/15/16 07:20 RBC 3.70 M/mm3 (3.65-5.03) 12/15/16 07:20 Hgb 9.9 gm/dl (10.1-14.3) L 12/15/16 07:20 Hct 29.9 % (30.3-42.9) L 12/15/16 07:20 MCV 81 fl (79-97) 12/15/16 07:20 MCH 27 pg (28-32) L 12/15/16 07:20 MCHC 33 % (30-34) 12/15/16 07:20 RDW 14.4 % (13.2-15.2) 12/15/16 07:20 Plt Count 296 K/mm3 (140-440) 12/15/16 07:20 Lymph % (Auto) 17.0 % (13.4-35.0) 12/15/16 07:20 [place] % (Auto) 12.4 % (0.0-7.3) H 12/15/16 07:20 Eos % (Auto) 3.4 % (0.0-4.3) 12/15/16 07:20 Baso % (Auto) 0.4 % (0.0-1.8) 12/15/16 07:20 Lymph # 1.4 K/mm3 (1.2-5.4) 12/15/16 07:20 [place] # 1.0 K/mm3 (0.0-0.8) H 12/15/16 07:20 Eos # 0.3 K/mm3 (0.0-0.4) 12/15/16 07:20 Baso # 0.0 K/mm3 (0.0-0.1) 12/15/16 07:20 Add Manual Diff Complete 12/12/16 04:30 Seg Neutrophils % 66.8 % (40.0-70.0) 12/15/16 07:20 Seg Neutrophils # 5.4 K/mm3 (1.8-7.7) 12/15/16 07:20 PT 14.6 Sec. (12.2-14.9) 12/14/16 04:43 INR 1.15 (0.87-1.13) H 12/14/16 04:43 D-Dimer 549.31 ng/mlDDU (0-234) H 12/07/16 23:36 Sodium 130 mmol/L (137-145) L 12/15/16 07:20 Potassium 3.7 mmol/L (3.6-5.0) 12/15/16 07:20 Chloride 96.8 mmol/L (98-107) L 12/15/16 07:20 Carbon Dioxide 23 mmol/L (22-30) 12/15/16 07:20 Anion Gap 14 mmol/L 12/15/16 07:20 BUN 6 mg/dL (7-17) L 12/15/16 07:20 Creatinine 0.5 mg/dL (0.7-1.2) L 12/15/16 07:20 Estimated GFR > 60 ml/min 12/15/16 07:20 BUN/Creatinine Ratio 12.00 % 12/15/16 07:20 Glucose 90 mg/dL (65-100) 12/15/16 07:20 POC Glucose 92 (70-105) 12/14/16 20:37 Calcium 8.6 mg/dL (8.4-10.2) 12/15/16 07:20 Phosphorus 2.40 mg/dL (2.5-4.5) L 12/07/16 17:37 Magnesium 1.60 mg/dL (1.7-2.3) L 12/07/16 17:37 Total Bilirubin 0.80 mg/dL (0.1-1.2) 12/10/16 05:37 AST 25 units/L (5-40) 12/10/16 05:37 ALT 11 units/L (7-56) 12/10/16 05:37 Alkaline Phosphatase 67 units/L (35-129) 12/10/16 05:37 Lactate Dehydrogenase 192 units/L (91-180) H 12/13/16 22:08 Total Creatine Kinase 77 units/L (30-135) 12/08/16 04:45 CK-MB (CK-2) 4.5 ng/mL (0.0-4.0) H 12/08/16 04:45 CK-MB (CK-2) Rel Index 5.8 (0-4) H 12/08/16 04:45 Troponin T < 0.010 ng/mL (0.00-0.029) 12/08/16 04:45 NT-Pro-B Natriuret Pep 1229 pg/mL (0-900) H 12/07/16 17:37 Total Protein 6.7 g/dL (6.3-8.2) 12/10/16 05:37 Albumin 3.6 g/dL (3.9-5) L 12/10/16 05:37 Albumin/Globulin Ratio 1.2 % 12/10/16 05:37 Lipase 39 units/L (13-60) 12/12/16 04:30 TSH 2.930 mlU/mL (0.270-4.200) 12/10/16 05:37 Urine Color Yellow (Yellow) 12/07/16 21:24 Urine Turbidity Clear (Clear) 12/07/16 21:24 Urine pH 8.0 (5.0-7.0) H 12/07/16 21:24 Ur Specific [place] 1.012 (1.003-1.030) 12/07/16 21:24 Urine Protein 100 mg/dl mg/dL (Negative) 12/07/16 21:24 Urine Glucose (UA) Neg mg/dL (Negative) 12/07/16 21:24 Urine Ketones 20 mg/dL (Negative) 12/07/16 21:24 Urine Blood Neg (Negative) 12/07/16 21:24 Urine Nitrite Neg (Negative) 12/07/16 21:24 Urine Bilirubin Neg (Negative) 12/07/16 21:24 Urine Urobilinogen < 2.0 mg/dL (<2.0) 12/07/16 21:24 Ur Leukocyte Esterase Sm (Negative) 12/07/16 21:24 Urine WBC (Auto) 2.0 /HPF (0.0-6.0) 12/07/16 21:24 Urine RBC (Auto) 10.0 /HPF (0.0-6.0) 12/07/16 21:24 U Epithel Cells (Auto) 2.0 /HPF (0-13.0) 12/07/16 21:24 Urine Mucus Few /HPF 12/07/16 21:24 Slight decrease in hemoglobin and hematocrit from yesterday's value
[2016-12-16 05:42] LABS: Basophils % (Auto) 0.5 % (0.0-1.8); Eosinophils % (Auto) 2.3 % (0.0-4.3); Hematocrit 22.1 % (30.3-42.9); Hemoglobin 7.4 gm/dl (10.1-14.3); Mean Corpuscular HGB Conc 33 % (30-34); Mean Corpuscular Hemoglobin 31 pg (28-32); Mean Corpuscular Volume 94 fl (79-97); Platelet Count 315 K/mm3 (140-440); Red Blood Count 2.36 M/mm3 (3.65-5.03); Red Cell Distribution Width 13.8 % (13.2-15.2); White Blood Count 11.5 K/mm3 (4.5-11.0)
[2016-12-16 05:58] LABS: Anion Gap 16 mmol/L; Blood Urea Nitrogen 21 mg/dL (7-17); Calcium 8.5 mg/dL (8.4-10.2); Carbon Dioxide 28 mmol/L (22-30); Chloride 103.7 mmol/L (98-107); Glucose 147 mg/dL (65-100); Potassium 3.2 mmol/L (3.6-5.0); Sodium 144 mmol/L (137-145)
[2016-12-16] MEDS ORDERED: K-DUR PO ONE (07:59)
[2016-12-16] MEDS: LOVENOX SUB-Q SCH ×2 (09:27→22:08)
[2016-12-16] MEDS: D5NS 1,000 ML IV SCH ×2 (09:27→22:16)
[2016-12-16] MEDS: PROTONIX PO SCH (09:28)
[2016-12-16] MEDS: COREG PO SCH ×2 (09:29→22:06)
--- NOTE | 2016-12-16 10:25 | Consultation ---
History of Present Illness - Reason for Consult Consult date: 12/16/16 - History of Present Illness Patient seen/examined, labs reviewed, case d/w patient, and her daughter at the bed side. Q/A done. I have spoken to the cardiology, Dr King will see patient this am. i have also spoken to Gen surgery, and he will not operate unless ok from Cardiology. Past History Past Medical History: atrial fib, CAD, cancer, hypertension, other (Breast Cancer) Past Surgical History: hysterectomy, Other (polypectomy.and mastectomy) Social history: denies: smoking, alcohol abuse Family history: cancer, hypertension Medications and Allergies Allergies Allergy/AdvReac Type Severity Reaction Status Date / Time adhesive Allergy Rash Verified 12/07/16 17:22 cyclobenzaprine Allergy Swelling Verified 12/07/16 17:22 acetaminophen [From Tylenol] AdvReac Unknown Verified 12/07/16 17:22 codeine AdvReac Nausea Verified 12/07/16 17:22 Home Medications Medication Instructions Recorded Confirmed Last Taken Type Carvedilol 12.5 mg PO BID 08/05/14 12/07/16 12/07/16 08:00 History Losartan Potassium 50 mg PO DAILY 08/05/14 12/07/16 12/07/16 08:00 History Pregabalin [Lyrica] 150 mg PO BID 08/05/14 12/07/16 12/07/16 08:00 History cycloSPORINE [Restasis 0.05%] 2 drop OU BID 08/05/14 12/07/16 12/06/16 21:00 History Triamter/Hctz 37.5-25 mg 0.5 tab PO QDAY 12/07/16 12/07/16 12/07/16 12:00 History [Maxzide-25] Active Meds: Active Medications Bisacodyl (Dulcolax) 10 mg [place] QDAY PRN PRN Reason: Constipation unrelieved by MOM Carvedilol (Coreg) 12.5 mg PO BID MILO Last Admin: 12/16/16 09:29 Dose: 12.5 mg Enoxaparin Sodium (Lovenox) 110 mg SUB-Q Q12HR MILO Last Admin: 12/16/16 09:27 Dose: 110 mg Dextrose/Sodium Chloride (D5ns) 1,000 mls @ 75 mls/hr IV DIRECT MILO Last Admin: 12/16/16 09:27 Dose: 75 mls/hr Magnesium Hydroxide (Milk Of Magnesia) 30 ml PO Q4H PRN PRN Reason: Constipation Metoclopramide HCl (Reglan) 10 mg IV Q6H PRN PRN Reason: Nausea And Vomiting Last Admin: 12/09/16 13:10 Dose: 10 mg Ondansetron HCl (Zofran) 4 mg IV Q8H PRN PRN Reason: N/V unrelieved by Reglan Last Admin: 12/13/16 21:29 Dose: 4 mg Pantoprazole Sodium (Protonix) 40 mg PO QDAY [facility] Last Admin: 12/16/16 09:28 Dose: 40 mg Review of Systems Breasts: deferred Exam - Constitutional Vitals: Temp Pulse Resp BP Pulse Ox 98.1 F 65 20 142/69 97 12/16/16 07:15 12/16/16 09:29 12/16/16 07:15 12/16/16 09:29 12/16/16 07:15 General appearance: Present: mild distress, well-nourished - EENT Eyes: Present: PERRL ENT: hearing intact, clear oral mucosa - Neck Neck: Present: supple, normal ROM - Respiratory Respiratory effort: normal Respiratory: bilateral: CTA - Cardiovascular Heart Sounds: Present: S1 & S2. Absent: rub, click - Extremities Extremities: pulses symmetrical, No edema Peripheral Pulses: within normal limits - Abdominal General gastrointestinal: Present: soft, non-tender, non-distended, normal bowel sounds Female genitourinary: Present: deferred - Rectal Rectal Exam: deferred - Integumentary Integumentary: Present: clear, warm, dry - Musculoskeletal Musculoskeletal: gait normal, strength equal bilaterally - Psychiatric Psychiatric: appropriate mood/affect, intact judgment & insight - Neurologic Neurologic: CNII-XII intact, moves all extremities Results - Labs CBC & Chem 7: 12/16/16 05:00 12/16/16 05:00 Labs: Abnormal lab results 12/16/16 12/16/16 Range/Units 05:00 05:00 WBC 11.5 H (4.5-11.0) K/mm3 RBC 2.36 L (3.65-5.03) M/mm3 Hgb 7.4 L (10.1-14.3) gm/dl Hct 22.1 L D (30.3-42.9) % [place] % (Auto) 9.5 H (0.0-7.3) % [place] # 1.1 H (0.0-0.8) K/mm3 Potassium 3.2 L (3.6-5.0) mmol/L BUN 21 H (7-17) mg/dL Creatinine 0.6 L (0.7-1.2) mg/dL Glucose 147 H (65-100) mg/dL Assessment and Plan - Patient Problems (1) Abnormal loss of weight Current Visit: Yes Status: Acute Plan to address problem: very mild as per patient, less than 5% of her body mass. (2) Atrial fibrillation Current Visit: Yes Status: Acute Qualifiers: Atrial fibrillation type: A Plan to address problem: to be kept in mind with surgery. cardiology on the case. (3) Hyponatremia Current Visit: Yes Status: Acute Plan to address problem: hydration judiciously. (4) Colonic mass Current Visit: Yes Status: Acute Plan to address problem: Scheduled for resection tomorrow. See notes above. Supposedly set for surgery this afternoon. Differed until cardiology clearance, as per Gen surgery.
--- NOTE | 2016-12-16 11:50 | Progress Note ---
Assessment and Plan Nausea/weakness CTA chest - no PE or dissection s/p colonoscopy: Right colon mass Hyponatremia Hypertension Afib, paroxysmal patient is on lovenox Tele showed a long pauses noted while patient is straining on the toilet, likely vagally mediated coreg reduced to 12.5mg bid. No reoccurrence. [facility] 01/2015 showed a mild non-obstructive disease, EF 65-70%. Subjective Date of service: 12/16/16 Principal diagnosis: N/V, abd pain Interval history: Patient has no cardiac complaints. No events on telemetry overnight. Objective Vital Signs Temp Pulse Resp BP Pulse Ox 12/16/16 09:29 65 142/69 12/16/16 07:15 98.1 F 65 20 149/62 97 12/16/16 04:00 98.1 F 69 18 121/75 98 12/16/16 00:32 98.2 F 94 H 18 153/73 97 12/15/16 22:00 73 12/15/16 20:00 98.5 F 64 18 146/69 98 12/15/16 19:52 20 12/15/16 17:15 98.8 F 65 18 142/79 95 12/15/16 12:20 98.1 F 71 18 163/73 99 - Physical Examination General: No Apparent Distress HEENT: Positive: PERRL Cardiac: Positive: Reg Rate and Rhythm Lungs: Positive: Decreased Breath Sounds Neuro: Positive: Grossly Intact - Labs and Meds CBC 12/16/16 Range/Units 05:00 WBC 11.5 H (4.5-11.0) K/mm3 RBC 2.36 L (3.65-5.03) M/mm3 Hgb 7.4 L (10.1-14.3) gm/dl Hct 22.1 L D (30.3-42.9) % Plt Count 315 (140-440) K/mm3 Lymph # 2.6 (1.2-5.4) K/mm3 [place] # 1.1 H (0.0-0.8) K/mm3 Eos # 0.3 (0.0-0.4) K/mm3 Baso # 0.1 (0.0-0.1) K/mm3 Comprehensive Metabolic Panel 12/16/16 Range/Units 05:00 Sodium 144 D (137-145) mmol/L Potassium 3.2 L (3.6-5.0) mmol/L Chloride 103.7 (98-107) mmol/L Carbon Dioxide 28 (22-30) mmol/L BUN 21 H (7-17) mg/dL Creatinine 0.6 L (0.7-1.2) mg/dL Glucose 147 H (65-100) mg/dL Calcium 8.5 (8.4-10.2) mg/dL - Imaging and Cardiology EKG: image reviewed
--- NOTE | 2016-12-16 14:40 | Progress Note ---
Assessment and Plan Assessment and plan: Abdominal pain -Secondary to colon cancer -Pain control Acute hypoxic respiratory failure. - Resolved Atrial fibrillation. - On metoprolol 12.5mg - on lovenox Hypertension. - Continue antihypertensive medications. - Blood pressures is controlled Hyponatremia. - Sodium from this morning is 130 Hypokalemia. - Repleted Nausea/vomiting/dyspepsia. - Resolved. Episodes of hypotension, bradycardia 2 days ago - No episode after that Patient is okayed by cardiology to have surgery. Will follow surgery recommendations. History Interval history: Patient was seen and evaluated, patient was resting well not in pain or distress , no bleeding overnight but her hemoglobin and hematocrit dropped. Hospitalist Physical - Physical exam Narrative exam: Not in cardiopulmonary distress. The patient is obese. Vital signs as documented. Head exam is unremarkable. No scleral icterus . Neck is without jugular venous distension, thyromegaly, or carotid bruits. Lungs are clear to auscultation. Cardiac exam reveals regular rate and Rhythm. First and second heart sounds normal. No murmurs, rubs or gallops. Abdominal exam reveals normal bowel sounds, no masses, no organomegaly and no aortic enlargement. Extremities are nonedematous and both femoral and pedal pulses are normal. FAMILY SERVICES COORDINATOR: Alert and oriented 3. No focal weakness. - Constitutional Vitals: Temp Pulse Resp BP Pulse Ox 98.6 F 66 18 128/61 99 12/16/16 12:15 12/16/16 12:15 12/16/16 12:15 12/16/16 12:15 12/16/16 12:15 General appearance: Present: mild distress, well-nourished Results - Labs CBC & Chem 7: 12/16/16 05:00 12/16/16 05:00 Labs: Laboratory Last Values WBC 11.5 K/mm3 (4.5-11.0) H 12/16/16 05:00 RBC 2.36 M/mm3 (3.65-5.03) L 12/16/16 05:00 Hgb 7.4 gm/dl (10.1-14.3) L 12/16/16 05:00 Hct 22.1 % (30.3-42.9) L D 12/16/16 05:00 MCV 94 fl (79-97) 12/16/16 05:00 MCH 31 pg (28-32) 12/16/16 05:00 MCHC 33 % (30-34) 12/16/16 05:00 RDW 13.8 % (13.2-15.2) 12/16/16 05:00 Plt Count 315 K/mm3 (140-440) 12/16/16 05:00 Lymph % (Auto) 22.9 % (13.4-35.0) 12/16/16 05:00 [place] % (Auto) 9.5 % (0.0-7.3) H 12/16/16 05:00 Eos % (Auto) 2.3 % (0.0-4.3) 12/16/16 05:00 Baso % (Auto) 0.5 % (0.0-1.8) 12/16/16 05:00 Lymph # 2.6 K/mm3 (1.2-5.4) 12/16/16 05:00 [place] # 1.1 K/mm3 (0.0-0.8) H 12/16/16 05:00 Eos # 0.3 K/mm3 (0.0-0.4) 12/16/16 05:00 Baso # 0.1 K/mm3 (0.0-0.1) 12/16/16 05:00 Add Manual Diff Complete 12/12/16 04:30 Seg Neutrophils % 64.8 % (40.0-70.0) 12/16/16 05:00 Seg Neutrophils # 7.4 K/mm3 (1.8-7.7) 12/16/16 05:00 PT 14.6 Sec. (12.2-14.9) 12/14/16 04:43 INR 1.15 (0.87-1.13) H 12/14/16 04:43 D-Dimer 549.31 ng/mlDDU (0-234) H 12/07/16 23:36 Sodium 144 mmol/L (137-145) D 12/16/16 05:00 Potassium 3.2 mmol/L (3.6-5.0) L 12/16/16 05:00 Chloride 103.7 mmol/L (98-107) 12/16/16 05:00 Carbon Dioxide 28 mmol/L (22-30) 12/16/16 05:00 Anion Gap 16 mmol/L 12/16/16 05:00 BUN 21 mg/dL (7-17) H 12/16/16 05:00 Creatinine 0.6 mg/dL (0.7-1.2) L 12/16/16 05:00 Estimated GFR > 60 ml/min 12/16/16 05:00 BUN/Creatinine Ratio 35.00 % 12/16/16 05:00 Glucose 147 mg/dL (65-100) H 12/16/16 05:00 POC Glucose 128 (70-105) H 12/16/16 12:31 Calcium 8.5 mg/dL (8.4-10.2) 12/16/16 05:00 Phosphorus 2.40 mg/dL (2.5-4.5) L 12/07/16 17:37 Magnesium 1.60 mg/dL (1.7-2.3) L 12/07/16 17:37 Total Bilirubin 0.80 mg/dL (0.1-1.2) 12/10/16 05:37 AST 25 units/L (5-40) 12/10/16 05:37 ALT 11 units/L (7-56) 12/10/16 05:37 Alkaline Phosphatase 67 units/L (35-129) 12/10/16 05:37 Lactate Dehydrogenase 192 units/L (91-180) H 12/13/16 22:08 Total Creatine Kinase 77 units/L (30-135) 12/08/16 04:45 CK-MB (CK-2) 4.5 ng/mL (0.0-4.0) H 12/08/16 04:45 CK-MB (CK-2) Rel Index 5.8 (0-4) H 12/08/16 04:45 Troponin T < 0.010 ng/mL (0.00-0.029) 12/08/16 04:45 NT-Pro-B Natriuret Pep 1229 pg/mL (0-900) H 12/07/16 17:37 Total Protein 6.7 g/dL (6.3-8.2) 12/10/16 05:37 Albumin 3.6 g/dL (3.9-5) L 12/10/16 05:37 Albumin/Globulin Ratio 1.2 % 12/10/16 05:37 Lipase 39 units/L (13-60) 12/12/16 04:30 TSH 2.930 mlU/mL (0.270-4.200) 12/10/16 05:37 Urine Color Yellow (Yellow) 12/07/16 21:24 Urine Turbidity Clear (Clear) 12/07/16 21:24 Urine pH 8.0 (5.0-7.0) H 12/07/16 21:24 Ur Specific [place] 1.012 (1.003-1.030) 12/07/16 21:24 Urine Protein 100 mg/dl mg/dL (Negative) 12/07/16 21:24 Urine Glucose (UA) Neg mg/dL (Negative) 12/07/16 21:24 Urine Ketones 20 mg/dL (Negative) 12/07/16 21:24 Urine Blood Neg (Negative) 12/07/16 21:24 Urine Nitrite Neg (Negative) 12/07/16 21:24 Urine Bilirubin Neg (Negative) 12/07/16 21:24 Urine Urobilinogen < 2.0 mg/dL (<2.0) 12/07/16 21:24 Ur Leukocyte Esterase Sm (Negative) 12/07/16 21:24 Urine WBC (Auto) 2.0 /HPF (0.0-6.0) 12/07/16 21:24 Urine RBC (Auto) 10.0 /HPF (0.0-6.0) 12/07/16 21:24 U Epithel Cells (Auto) 2.0 /HPF (0-13.0) 12/07/16 21:24 Urine Mucus Few /HPF 12/07/16 21:24 Hemoglobin dropped from 9.1 yesterday to 7.4 today, hypokalemia
--- NOTE | 2016-12-16 14:58 | Anesthesia Consultation ---
Anesthesia Consult and Med Hx Date of service: 12/16/16 - Airway Anesthetic Teeth Evaluation: Poor, Edentulous (upper) ROM Head & Neck: Adequate Mental/Hyoid Distance: Adequate Mallampati Class: Class IV Intubation Access Assessment: Possibly Difficult (small mouth opening) - Pulmonary Exam CTA: Yes - Cardiac Exam Cardiac Exam: RRR - Pre-Operative Health Status ASA Pre-Surgery Classification: ASA3 Proposed Anesthetic Plan: General - Pulmonary Hx Smoking: No Hx Respiratory Symptoms: Yes (acute hypoxic resp failure, on O2) SOB: Yes - Cardiovascular System Hx Hypertension: Yes Hx Coronary Artery Disease: Yes (EF65-70 (2015)) Hx Heart Attack/AMI: No Hx Cardia Arrhythmia: Yes (PAF) Hx Pacemaker: No Hx Internal Defibrillator: No - Central Nervous System Hx Seizures: No CVA: No Hx Psychiatric Problems: Yes - Endocrine Hx Renal Disease: No (hypokalemic K 3.2) Hx Insulin Dependent Diabetes: No Hx Non-Insulin Dependent Diabetes: No - Hematic Hx Anemia: Yes (hg 7.4) - Other Systems Hx Cancer: Yes (skin-facial, leg melanoma, Rt breast ca sp mastectomy, colon mass '17) Hx Obesity: Yes - Additional Comments Anesthesia Medical History Comments: Blue code 10 years ago during mastectomy surgery per pt. Well tolerated during recent colonoscopy.
[2016-12-17 04:58] LABS: Basophils % (Auto) 1.1 % (0.0-1.8); Eosinophils % (Auto) 4.8 % (0.0-4.3); Hematocrit 28.1 % (30.3-42.9); Hemoglobin 9.6 gm/dl (10.1-14.3); Mean Corpuscular HGB Conc 34 % (30-34); Mean Corpuscular Hemoglobin 28 pg (28-32); Mean Corpuscular Volume 80 fl (79-97); Platelet Count 288 K/mm3 (140-440); Red Cell Distribution Width 14.2 % (13.2-15.2); White Blood Count 6.4 K/mm3 (4.5-11.0)
[2016-12-17 05:09] LABS: Anion Gap 11 mmol/L; Blood Urea Nitrogen 3 mg/dL (7-17); Calcium 8.7 mg/dL (8.4-10.2); Carbon Dioxide 29 mmol/L (22-30); Chloride 101.1 mmol/L (98-107); Glucose 112 mg/dL (65-100); Potassium 3.7 mmol/L (3.6-5.0); Sodium 137 mmol/L (137-145)
--- NOTE | 2016-12-17 09:14 | Progress Note ---
Assessment and Plan Nausea/weakness CTA chest - no PE or dissection s/p colonoscopy: Right colon mass surgery anticipated Monday Hyponatremia improving Hypertension controlled Afib, paroxysmal patient is on lovenox Tele showed a long pauses noted while patient is straining on the toilet, likely vagally mediated coreg reduced to 12.5mg bid. No reoccurrence. Heart rate maintaining in the 60s currently sinus rhythm [facility] 01/2015 showed a mild non-obstructive disease, EF 65-70%. Patient has been evaluated and has been cleared for surgery No further cardiac workup at this time Restprimary team Subjective Date of service: 12/17/16 Principal diagnosis: N/V, abd pain Interval history: No events overnight patient reports that she slept very well Still complaining of on and off nausea Objective Vital Signs Temp Pulse Resp Resp BP Pulse Ox 12/17/16 06:00 98.1 F 71 18 145/66 98 12/17/16 03:20 60 12/17/16 00:41 98.3 F 68 18 152/67 97 12/17/16 00:20 60 12/16/16 22:20 20 12/16/16 22:19 20 12/16/16 22:06 63 166/70 12/16/16 20:00 98.3 F 63 18 166/70 98 12/16/16 16:00 98.4 F 61 18 149/67 100 12/16/16 15:44 71 12/16/16 12:15 98.6 F 66 18 128/61 99 12/16/16 09:29 65 142/69 - Physical Examination Narrative exam: GEN: NAD moderately obese HEENT: Carotids 2+ NECK: SUPPLE, CVS: RRR, NORMAL S1S2 LUNGS/CHEST: CTA ABD: SOFT, MSK: FROM X 4 EXTREMITIES NEURO: CN 2-12 GROSSLY INTACT, NO FOCAL DEFICITS PSY: CALM General: No Apparent Distress HEENT: Positive: PERRL Neck: Positive: trachea midline Neuro: Positive: Grossly Intact Abdomen: Positive: Soft Skin: Positive: Clear Extremities: Absent: edema - Labs and Meds CBC 12/17/16 Range/Units Unknown WBC 6.4 (4.5-11.0) K/mm3 RBC 3.50 L (3.65-5.03) M/mm3 Hgb 9.6 L (10.1-14.3) gm/dl Hct 28.1 L D (30.3-42.9) % Plt Count 288 (140-440) K/mm3 Lymph # 1.4 (1.2-5.4) K/mm3 [place] # 1.0 H (0.0-0.8) K/mm3 Eos # 0.3 (0.0-0.4) K/mm3 Baso # 0.1 (0.0-0.1) K/mm3 Comprehensive Metabolic Panel 12/17/16 Range/Units Unknown Sodium 137 (137-145) mmol/L Potassium 3.7 (3.6-5.0) mmol/L Chloride 101.1 (98-107) mmol/L Carbon Dioxide 29 (22-30) mmol/L BUN 3 L (7-17) mg/dL Creatinine 0.4 L (0.7-1.2) mg/dL Glucose 112 H (65-100) mg/dL Calcium 8.7 (8.4-10.2) mg/dL - Imaging and Cardiology EKG: image reviewed
[2016-12-17] MEDS: COREG PO SCH ×2 (10:02→22:25)
[2016-12-17] MEDS: PROTONIX PO SCH (10:03)
[2016-12-17] MEDS: LOVENOX SUB-Q SCH ×2 (10:03→22:24)
[2016-12-17] MEDS: D5NS 1,000 ML IV SCH (11:28)
[2016-12-17] MEDS ORDERED: PERCOCET 5/325 PO PRN (12:12)
--- NOTE | 2016-12-17 12:14 | Progress Note ---
Assessment and Plan Assessment and plan: Abdominal pain -Secondary to colon cancer -Anticipated surgery on Monday Acute hypoxic respiratory failure. - Resolved Atrial fibrillation. - On metoprolol 12.5mg - on lovenox Hypertension. - Continue antihypertensive medications. - Blood pressures is controlled Hyponatremia. - Sodium from this morning is 130 Hypokalemia. - Repleted Nausea/vomiting/dyspepsia. - Resolved. Episodes of hypotension, bradycardia 2 days ago - No episode after that Patient is okayed by cardiology to have surgery. Disposition - Continue inpatient care. History Interval history: Patient was seen and evaluated, patient was resting well not in pain or distress , no bleeding overnight, her hemoglobin and hematocrit is stable, 9.4. Hospitalist Physical - Physical exam Narrative exam: Not in cardiopulmonary distress. The patient is obese. Vital signs as documented. Head exam is unremarkable. No scleral icterus . Neck is without jugular venous distension, thyromegaly, or carotid bruits. Lungs are clear to auscultation. Cardiac exam reveals regular rate and Rhythm. First and second heart sounds normal. No murmurs, rubs or gallops. Abdominal exam reveals normal bowel sounds, no masses, no organomegaly and no aortic enlargement. Extremities are nonedematous and both femoral and pedal pulses are normal. FOOD CRITIC: Alert and oriented 3. No focal weakness. - Constitutional Vitals: Temp Pulse Resp BP Pulse Ox 97.7 F 67 22 147/66 96 12/17/16 07:25 12/17/16 10:02 12/17/16 07:25 12/17/16 10:02 12/17/16 07:25 General appearance: Present: mild distress, well-nourished Results - Labs CBC & Chem 7: 12/17/16 Unknown 12/17/16 Unknown Labs: Laboratory Last Values WBC 6.4 K/mm3 (4.5-11.0) 12/17/16 Unknown RBC 3.50 M/mm3 (3.65-5.03) L 12/17/16 Unknown Hgb 9.6 gm/dl (10.1-14.3) L 12/17/16 Unknown Hct 28.1 % (30.3-42.9) L D 12/17/16 Unknown MCV 80 fl (79-97) 12/17/16 Unknown MCH 28 pg (28-32) 12/17/16 Unknown MCHC 34 % (30-34) 12/17/16 Unknown RDW 14.2 % (13.2-15.2) 12/17/16 Unknown Plt Count 288 K/mm3 (140-440) 12/17/16 Unknown Lymph % (Auto) 21.3 % (13.4-35.0) 12/17/16 Unknown [place] % (Auto) 14.9 % (0.0-7.3) H 12/17/16 Unknown Eos % (Auto) 4.8 % (0.0-4.3) H 12/17/16 Unknown Baso % (Auto) 1.1 % (0.0-1.8) 12/17/16 Unknown Lymph # 1.4 K/mm3 (1.2-5.4) 12/17/16 Unknown [place] # 1.0 K/mm3 (0.0-0.8) H 12/17/16 Unknown Eos # 0.3 K/mm3 (0.0-0.4) 12/17/16 Unknown Baso # 0.1 K/mm3 (0.0-0.1) 12/17/16 Unknown Add Manual Diff Complete 12/12/16 04:30 Seg Neutrophils % 57.9 % (40.0-70.0) 12/17/16 Unknown Seg Neutrophils # 3.7 K/mm3 (1.8-7.7) 12/17/16 Unknown PT 14.6 Sec. (12.2-14.9) 12/14/16 04:43 INR 1.15 (0.87-1.13) H 12/14/16 04:43 D-Dimer 549.31 ng/mlDDU (0-234) H 12/07/16 23:36 Sodium 137 mmol/L (137-145) 12/17/16 Unknown Potassium 3.7 mmol/L (3.6-5.0) 12/17/16 Unknown Chloride 101.1 mmol/L (98-107) 12/17/16 Unknown Carbon Dioxide 29 mmol/L (22-30) 12/17/16 Unknown Anion Gap 11 mmol/L 12/17/16 Unknown BUN 3 mg/dL (7-17) L 12/17/16 Unknown Creatinine 0.4 mg/dL (0.7-1.2) L 12/17/16 Unknown Estimated GFR > 60 ml/min 12/17/16 Unknown BUN/Creatinine Ratio 7.50 % 12/17/16 Unknown Glucose 112 mg/dL (65-100) H 12/17/16 Unknown POC Glucose 124 (70-105) H 12/16/16 21:34 Calcium 8.7 mg/dL (8.4-10.2) 12/17/16 Unknown Phosphorus 2.40 mg/dL (2.5-4.5) L 12/07/16 17:37 Magnesium 1.60 mg/dL (1.7-2.3) L 12/07/16 17:37 Total Bilirubin 0.80 mg/dL (0.1-1.2) 12/10/16 05:37 AST 25 units/L (5-40) 12/10/16 05:37 ALT 11 units/L (7-56) 12/10/16 05:37 Alkaline Phosphatase 67 units/L (35-129) 12/10/16 05:37 Lactate Dehydrogenase 192 units/L (91-180) H 12/13/16 22:08 Total Creatine Kinase 77 units/L (30-135) 12/08/16 04:45 CK-MB (CK-2) 4.5 ng/mL (0.0-4.0) H 12/08/16 04:45 CK-MB (CK-2) Rel Index 5.8 (0-4) H 12/08/16 04:45 Troponin T < 0.010 ng/mL (0.00-0.029) 12/08/16 04:45 NT-Pro-B Natriuret Pep 1229 pg/mL (0-900) H 12/07/16 17:37 Total Protein 6.7 g/dL (6.3-8.2) 12/10/16 05:37 Albumin 3.6 g/dL (3.9-5) L 12/10/16 05:37 Albumin/Globulin Ratio 1.2 % 12/10/16 05:37 Lipase 39 units/L (13-60) 12/12/16 04:30 TSH 2.930 mlU/mL (0.270-4.200) 12/10/16 05:37 Urine Color Yellow (Yellow) 12/07/16 21:24 Urine Turbidity Clear (Clear) 12/07/16 21:24 Urine pH 8.0 (5.0-7.0) H 12/07/16 21:24 Ur Specific [place] 1.012 (1.003-1.030) 12/07/16 21:24 Urine Protein 100 mg/dl mg/dL (Negative) 12/07/16 21:24 Urine Glucose (UA) Neg mg/dL (Negative) 12/07/16 21:24 Urine Ketones 20 mg/dL (Negative) 12/07/16 21:24 Urine Blood Neg (Negative) 12/07/16 21:24 Urine Nitrite Neg (Negative) 12/07/16 21:24 Urine Bilirubin Neg (Negative) 12/07/16 21:24 Urine Urobilinogen < 2.0 mg/dL (<2.0) 12/07/16 21:24 Ur Leukocyte Esterase Sm (Negative) 12/07/16 21:24 Urine WBC (Auto) 2.0 /HPF (0.0-6.0) 12/07/16 21:24 Urine RBC (Auto) 10.0 /HPF (0.0-6.0) 12/07/16 21:24 U Epithel Cells (Auto) 2.0 /HPF (0-13.0) 12/07/16 21:24 Urine Mucus Few /HPF 12/07/16 21:24
[2016-12-17] MEDS: NACL 0.45% 1000 ML 1,000 ML IV SCH ×2 (12:53→22:24)
--- NOTE | 2016-12-18 09:23 | Event Note ---
Date: 12/18/16 plan right hemicolectomy in am.
[2016-12-18 10:09] LABS: Basophils % (Auto) 1.1 % (0.0-1.8); Eosinophils % (Auto) 4.9 % (0.0-4.3); Hemoglobin 9.5 gm/dl (10.1-14.3); Mean Corpuscular HGB Conc 34 % (30-34); Mean Corpuscular Hemoglobin 27 pg (28-32); Mean Corpuscular Volume 80 fl (79-97); Platelet Count 328 K/mm3 (140-440); Red Blood Count 3.49 M/mm3 (3.65-5.03); Red Cell Distribution Width 14.3 % (13.2-15.2); White Blood Count 5.9 K/mm3 (4.5-11.0)
--- NOTE | 2016-12-18 10:28 | Progress Note ---
Assessment and Plan Nausea/weakness CTA chest - no PE or dissection s/p colonoscopy: Right colon mass surgery anticipated tomorrow Hyponatremia resolved Hypertension controlled Afib, paroxysmal currently in NSR Patient is on lovenox. Please hold lovenox this evening and morning dose in preparation for surgery Tele showed a long pauses noted while patient is straining on the toilet, likely vagally mediated coreg reduced to 12.5mg bid. No reoccurrence. Heart rate maintaining in the 60s currently sinus rhythm [facility] 01/2015 showed a mild non-obstructive disease, EF 65-70%. Patient has been evaluated and has been cleared for surgery No further cardiac workup at this time Rest primary team Subjective Date of service: 12/18/16 Principal diagnosis: N/V, abd pain Interval history: No events overnight patient reports that she slept very well Still complaining of on and off nausea Objective Vital Signs Temp Pulse Resp BP Pulse Ox 12/18/16 07:25 98.5 F 66 20 143/65 98 12/18/16 04:50 97.8 F 64 18 154/98 94 12/18/16 00:09 98.1 F 62 18 165/71 98 12/17/16 23:33 22 12/17/16 22:25 72 12/17/16 20:10 98.2 F 59 L 20 167/75 100 12/17/16 19:45 72 12/17/16 17:20 97.9 F 60 20 124/66 12/17/16 16:04 98 12/17/16 15:58 63 12/17/16 12:15 98.1 F 60 20 138/66 99 - Physical Examination Narrative exam: GEN: NAD moderately obese HEENT: Carotids 2+ NECK: SUPPLE, CVS: RRR, NORMAL S1S2 LUNGS/CHEST: CTA ABD: SOFT, MSK: FROM X 4 EXTREMITIES NEURO: CN 2-12 GROSSLY INTACT, NO FOCAL DEFICITS PSY: CALM General: No Apparent Distress HEENT: Positive: PERRL Neck: Positive: trachea midline Neuro: Positive: Grossly Intact Abdomen: Positive: Soft Skin: Positive: Clear Extremities: Absent: edema - Labs and Meds CBC 12/18/16 Range/Units 09:00 WBC 5.9 (4.5-11.0) K/mm3 RBC 3.49 L (3.65-5.03) M/mm3 Hgb 9.5 L (10.1-14.3) gm/dl Hct 28.0 L (30.3-42.9) % Plt Count 328 (140-440) K/mm3 Lymph # 1.2 (1.2-5.4) K/mm3 [place] # 0.8 (0.0-0.8) K/mm3 Eos # 0.3 (0.0-0.4) K/mm3 Baso # 0.1 (0.0-0.1) K/mm3 - Imaging and Cardiology EKG: image reviewed
[2016-12-18] MEDS: NACL 0.45% 1000 ML 1,000 ML IV SCH ×3 (10:30→22:26)
[2016-12-18] MEDS: LOVENOX SUB-Q SCH ×2 (10:31→21:05)
[2016-12-18] MEDS: PROTONIX PO SCH (10:31)
[2016-12-18] MEDS: COREG PO SCH ×2 (10:31→21:06)
[2016-12-18 10:32] LABS: Anion Gap 13 mmol/L; Blood Urea Nitrogen 3 mg/dL (7-17); Calcium 8.5 mg/dL (8.4-10.2); Carbon Dioxide 28 mmol/L (22-30); Glucose 99 mg/dL (65-100); Potassium 3.8 mmol/L (3.6-5.0); Sodium 138 mmol/L (137-145)
--- NOTE | 2016-12-18 10:47 | Progress Note ---
Assessment and Plan Assessment and plan: Abdominal pain. Secondary to colon cancer. For surgery tomorrow by Dr. Patel. Patient evaluated by cardiology. OK to proceed. Acute hypoxic respiratory failure. Now resolved Atrial fibrillation. She is on metoprolol and lovenox. To hold evening dose of Lovenox because of anticipated surgery tomorrow. Hypertension. BP controlled Hyponatremia. Now resolved. Sodium 138 today. Hypokalemia. Resolved DVT prophylaxis. She is on Lovenox Full code status. I discussed with patient and daughter at bedside History Interval history: less abdominal pain, no fever Hospitalist Physical - Physical exam Narrative exam: Gen appearance :Not in acute distress, obese HEENT: Normocephalic, atraumatic Neck: Supple, no JVD Lungs: Clear to auscultation bilaterally, no crackles, or wheezes. Heart: S1 and S2 regular, no murmurs, no gallops, rub Abdomen : Soft, nontender, non-distended, normal bowel sounds Extremities :No edema, no clubbing or cyanosis Neuro: Awake, alert, normal speech, no focal neurological signs Psych: normal mood. - Constitutional Vitals: Temp Pulse Resp BP Pulse Ox 98.5 F 65 20 145/66 98 12/18/16 07:25 12/18/16 10:31 12/18/16 07:25 12/18/16 10:31 12/18/16 07:25 General appearance: Present: mild distress, well-nourished Results - Labs CBC & Chem 7: 12/18/16 09:00 12/18/16 09:00 Labs: Laboratory Last Values WBC 5.9 K/mm3 (4.5-11.0) 12/18/16 09:00 RBC 3.49 M/mm3 (3.65-5.03) L 12/18/16 09:00 Hgb 9.5 gm/dl (10.1-14.3) L 12/18/16 09:00 Hct 28.0 % (30.3-42.9) L 12/18/16 09:00 MCV 80 fl (79-97) 12/18/16 09:00 MCH 27 pg (28-32) L 12/18/16 09:00 MCHC 34 % (30-34) 12/18/16 09:00 RDW 14.3 % (13.2-15.2) 12/18/16 09:00 Plt Count 328 K/mm3 (140-440) 12/18/16 09:00 Lymph % (Auto) 20.8 % (13.4-35.0) 12/18/16 09:00 [place] % (Auto) 14.1 % (0.0-7.3) H 12/18/16 09:00 Eos % (Auto) 4.9 % (0.0-4.3) H 12/18/16 09:00 Baso % (Auto) 1.1 % (0.0-1.8) 12/18/16 09:00 Lymph # 1.2 K/mm3 (1.2-5.4) 12/18/16 09:00 [place] # 0.8 K/mm3 (0.0-0.8) 12/18/16 09:00 Eos # 0.3 K/mm3 (0.0-0.4) 12/18/16 09:00 Baso # 0.1 K/mm3 (0.0-0.1) 12/18/16 09:00 Add Manual Diff Complete 12/12/16 04:30 Seg Neutrophils % 59.1 % (40.0-70.0) 12/18/16 09:00 Seg Neutrophils # 3.5 K/mm3 (1.8-7.7) 12/18/16 09:00 PT 14.6 Sec. (12.2-14.9) 12/14/16 04:43 INR 1.15 (0.87-1.13) H 12/14/16 04:43 D-Dimer 549.31 ng/mlDDU (0-234) H 12/07/16 23:36 Sodium 138 mmol/L (137-145) 12/18/16 09:00 Potassium 3.8 mmol/L (3.6-5.0) 12/18/16 09:00 Chloride 101.0 mmol/L (98-107) 12/18/16 09:00 Carbon Dioxide 28 mmol/L (22-30) 12/18/16 09:00 Anion Gap 13 mmol/L 12/18/16 09:00 BUN 3 mg/dL (7-17) L 12/18/16 09:00 Creatinine 0.4 mg/dL (0.7-1.2) L 12/18/16 09:00 Estimated GFR > 60 ml/min 12/18/16 09:00 BUN/Creatinine Ratio 7.50 % 12/18/16 09:00 Glucose 99 mg/dL (65-100) 12/18/16 09:00 POC Glucose 113 (70-105) H 12/18/16 07:32 Calcium 8.5 mg/dL (8.4-10.2) 12/18/16 09:00 Phosphorus 2.40 mg/dL (2.5-4.5) L 12/07/16 17:37 Magnesium 1.60 mg/dL (1.7-2.3) L 12/07/16 17:37 Total Bilirubin 0.80 mg/dL (0.1-1.2) 12/10/16 05:37 AST 25 units/L (5-40) 12/10/16 05:37 ALT 11 units/L (7-56) 12/10/16 05:37 Alkaline Phosphatase 67 units/L (35-129) 12/10/16 05:37 Lactate Dehydrogenase 192 units/L (91-180) H 12/13/16 22:08 Total Creatine Kinase 77 units/L (30-135) 12/08/16 04:45 CK-MB (CK-2) 4.5 ng/mL (0.0-4.0) H 12/08/16 04:45 CK-MB (CK-2) Rel Index 5.8 (0-4) H 12/08/16 04:45 Troponin T < 0.010 ng/mL (0.00-0.029) 12/08/16 04:45 NT-Pro-B Natriuret Pep 1229 pg/mL (0-900) H 12/07/16 17:37 Total Protein 6.7 g/dL (6.3-8.2) 12/10/16 05:37 Albumin 3.6 g/dL (3.9-5) L 12/10/16 05:37 Albumin/Globulin Ratio 1.2 % 12/10/16 05:37 Lipase 39 units/L (13-60) 12/12/16 04:30 TSH 2.930 mlU/mL (0.270-4.200) 12/10/16 05:37 Urine Color Yellow (Yellow) 12/07/16 21:24 Urine Turbidity Clear (Clear) 12/07/16 21:24 Urine pH 8.0 (5.0-7.0) H 12/07/16 21:24 Ur Specific [place] 1.012 (1.003-1.030) 12/07/16 21:24 Urine Protein 100 mg/dl mg/dL (Negative) 12/07/16 21:24 Urine Glucose (UA) Neg mg/dL (Negative) 12/07/16 21:24 Urine Ketones 20 mg/dL (Negative) 12/07/16 21:24 Urine Blood Neg (Negative) 12/07/16 21:24 Urine Nitrite Neg (Negative) 12/07/16 21:24 Urine Bilirubin Neg (Negative) 12/07/16 21:24 Urine Urobilinogen < 2.0 mg/dL (<2.0) 12/07/16 21:24 Ur Leukocyte Esterase Sm (Negative) 12/07/16 21:24 Urine WBC (Auto) 2.0 /HPF (0.0-6.0) 12/07/16 21:24 Urine RBC (Auto) 10.0 /HPF (0.0-6.0) 12/07/16 21:24 U Epithel Cells (Auto) 2.0 /HPF (0-13.0) 12/07/16 21:24 Urine Mucus Few /HPF 12/07/16 21:24
[2016-12-18] MEDS ORDERED: APRESOLINE IV PRN (21:10)
--- NOTE | 2016-12-18 23:59 | Consultation ---
History of Present Illness - Reason for Consult Consult date: 12/18/16 - History of Present Illness patient seen, resting in bed. Past History Past Medical History: atrial fib, CAD, cancer, hypertension, other (Breast Cancer) Past Surgical History: hysterectomy, Other (polypectomy.and mastectomy) Social history: denies: smoking, alcohol abuse Family history: cancer, hypertension Medications and Allergies Allergies Allergy/AdvReac Type Severity Reaction Status Date / Time adhesive Allergy Rash Verified 12/07/16 17:22 cyclobenzaprine Allergy Swelling Verified 12/07/16 17:22 acetaminophen [From Tylenol] AdvReac Unknown Verified 12/07/16 17:22 codeine AdvReac Nausea Verified 12/07/16 17:22 Home Medications Medication Instructions Recorded Confirmed Last Taken Type Carvedilol 12.5 mg PO BID 08/05/14 12/07/16 12/07/16 08:00 History Losartan Potassium 50 mg PO DAILY 08/05/14 12/07/16 12/07/16 08:00 History Pregabalin [Lyrica] 150 mg PO BID 08/05/14 12/07/16 12/07/16 08:00 History cycloSPORINE [Restasis 0.05%] 2 drop OU BID 08/05/14 12/07/16 12/06/16 21:00 History Triamter/Hctz 37.5-25 mg 0.5 tab PO QDAY 12/07/16 12/07/16 12/07/16 12:00 History [Maxzide-25] Active Meds: Active Medications Bisacodyl (Dulcolax) 10 mg GA QDAY PRN PRN Reason: Constipation unrelieved by MOM Carvedilol (Coreg) 12.5 mg PO BID [facility] Last Admin: 12/18/16 21:06 Dose: 12.5 mg Enoxaparin Sodium (Lovenox) 110 mg SUB-Q Q12HR MILO Last Admin: 12/18/16 21:05 Dose: Not Given Famotidine (Pepcid) 20 mg PO PREOP NR Stop: 12/19/16 23:59 Lactated Ringer's (Lactated Ringers) 1,000 mls @ 100 mls/hr IV DIRECT MILO Sodium Chloride (Nacl 0.45% 1000 Ml) 1,000 mls @ 50 mls/hr IV DIRECT MILO Last Admin: 12/18/16 22:26 Dose: 50 mls/hr Magnesium Hydroxide (Milk Of Magnesia) 30 ml PO Q4H PRN PRN Reason: Constipation Metoclopramide HCl (Reglan) 10 mg IV Q6H PRN PRN Reason: Nausea And Vomiting Last Admin: 12/09/16 13:10 Dose: 10 mg Ondansetron HCl (Zofran) 4 mg IV Q8H PRN PRN Reason: N/V unrelieved by Reglan Oxycodone/Acetaminophen (Percocet 5/325) 1 tab PO Q6H PRN PRN Reason: Pain, Moderate (4-6) Pantoprazole Sodium (Protonix) 40 mg PO QDAY MILO Last Admin: 12/18/16 10:31 Dose: 40 mg Exam - Constitutional Vitals: Temp Pulse Resp BP Pulse Ox 97.8 F 64 20 200/95 95 12/18/16 20:39 12/18/16 20:39 12/18/16 22:17 12/18/16 20:39 12/18/16 20:39 Results - Labs CBC & Chem 7: 12/18/16 09:00 12/18/16 09:00 Labs: Abnormal lab results 12/18/16 12/18/16 12/18/16 Range/Units 07:32 09:00 09:00 RBC 3.49 L (3.65-5.03) M/mm3 Hgb 9.5 L (10.1-14.3) gm/dl Hct 28.0 L (30.3-42.9) % MCH 27 L (28-32) pg [place] % (Auto) 14.1 H (0.0-7.3) % Eos % (Auto) 4.9 H (0.0-4.3) % BUN 3 L (7-17) mg/dL Creatinine 0.4 L (0.7-1.2) mg/dL POC Glucose 113 H (70-105) 12/18/16 12/18/16 Range/Units 12:11 16:38 RBC (3.65-5.03) M/mm3 Hgb (10.1-14.3) gm/dl Hct (30.3-42.9) % MCH (28-32) pg [place] % (Auto) (0.0-7.3) % Eos % (Auto) (0.0-4.3) % BUN (7-17) mg/dL Creatinine (0.7-1.2) mg/dL POC Glucose 118 H 108 H (70-105) Assessment and Plan - Patient Problems (1) Abnormal loss of weight Current Visit: Yes Status: Acute (2) Atrial fibrillation Current Visit: Yes Status: Acute Qualifiers: Atrial fibrillation type: A (3) Hyponatremia Current Visit: Yes Status: Acute (4) Colonic mass Current Visit: Yes Status: Acute
[2016-12-19] MEDS ORDERED: PEPCID PO NR ×2 (00:01→11:00)
[2016-12-19] MEDS ORDERED: LACTATED RINGERS 1,000 ML IV SCH ×2 (00:01→11:00)
--- NOTE | 2016-12-19 09:33 | Progress Note ---
Assessment and Plan Assessment and plan: Abdominal pain. Secondary to colon cancer. For surgery today by Dr. Patel. Patient evaluated by cardiology. OK to proceed. Acute hypoxic respiratory failure. Now resolved Atrial fibrillation. She is on Coreg and lovenox. Lovenox on hold for surg today. Hypertension. BP controlled on Coreg Hyponatremia. Now resolved. Sodium 138 yesterday. Hypokalemia. Resolved DVT prophylaxis. She is on Lovenox Full code status. I discussed with patient and daughter at bedside History Interval history: less abdominal pain, no fever, no chest pain For surgery today Hospitalist Physical - Physical exam Narrative exam: Gen appearance :Not in acute distress, obese HEENT: Normocephalic, atraumatic Neck: Supple, no JVD Lungs: Clear to auscultation bilaterally, no crackles, or wheezes. Heart: S1 and S2 regular, no murmurs, no gallops, rub Abdomen : Soft, nontender, non-distended, normal bowel sounds Extremities :No edema, no clubbing or cyanosis Neuro: Awake, alert,oriented, normal speech, no focal neurological signs Psych: normal mood. - Constitutional Vitals: Temp Pulse Resp BP Pulse Ox 98.3 F 64 18 155/70 98 12/19/16 08:40 12/19/16 08:40 12/19/16 08:40 12/19/16 08:40 12/19/16 08:40 General appearance: Present: mild distress, well-nourished Results - Labs CBC & Chem 7: 12/18/16 09:00 12/18/16 09:00 Labs: Laboratory Last Values WBC 5.9 K/mm3 (4.5-11.0) 12/18/16 09:00 RBC 3.49 M/mm3 (3.65-5.03) L 12/18/16 09:00 Hgb 9.5 gm/dl (10.1-14.3) L 12/18/16 09:00 Hct 28.0 % (30.3-42.9) L 12/18/16 09:00 MCV 80 fl (79-97) 12/18/16 09:00 MCH 27 pg (28-32) L 12/18/16 09:00 MCHC 34 % (30-34) 12/18/16 09:00 RDW 14.3 % (13.2-15.2) 12/18/16 09:00 Plt Count 328 K/mm3 (140-440) 12/18/16 09:00 Lymph % (Auto) 20.8 % (13.4-35.0) 12/18/16 09:00 [place] % (Auto) 14.1 % (0.0-7.3) H 12/18/16 09:00 Eos % (Auto) 4.9 % (0.0-4.3) H 12/18/16 09:00 Baso % (Auto) 1.1 % (0.0-1.8) 12/18/16 09:00 Lymph # 1.2 K/mm3 (1.2-5.4) 12/18/16 09:00 [place] # 0.8 K/mm3 (0.0-0.8) 12/18/16 09:00 Eos # 0.3 K/mm3 (0.0-0.4) 12/18/16 09:00 Baso # 0.1 K/mm3 (0.0-0.1) 12/18/16 09:00 Add Manual Diff Complete 12/12/16 04:30 Seg Neutrophils % 59.1 % (40.0-70.0) 12/18/16 09:00 Seg Neutrophils # 3.5 K/mm3 (1.8-7.7) 12/18/16 09:00 PT 14.6 Sec. (12.2-14.9) 12/14/16 04:43 INR 1.15 (0.87-1.13) H 12/14/16 04:43 D-Dimer 549.31 ng/mlDDU (0-234) H 12/07/16 23:36 Sodium 138 mmol/L (137-145) 12/18/16 09:00 Potassium 3.8 mmol/L (3.6-5.0) 12/18/16 09:00 Chloride 101.0 mmol/L (98-107) 12/18/16 09:00 Carbon Dioxide 28 mmol/L (22-30) 12/18/16 09:00 Anion Gap 13 mmol/L 12/18/16 09:00 BUN 3 mg/dL (7-17) L 12/18/16 09:00 Creatinine 0.4 mg/dL (0.7-1.2) L 12/18/16 09:00 Estimated GFR > 60 ml/min 12/18/16 09:00 BUN/Creatinine Ratio 7.50 % 12/18/16 09:00 Glucose 99 mg/dL (65-100) 12/18/16 09:00 POC Glucose 96 (70-105) 12/18/16 21:11 Calcium 8.5 mg/dL (8.4-10.2) 12/18/16 09:00 Phosphorus 2.40 mg/dL (2.5-4.5) L 12/07/16 17:37 Magnesium 1.60 mg/dL (1.7-2.3) L 12/07/16 17:37 Total Bilirubin 0.80 mg/dL (0.1-1.2) 12/10/16 05:37 AST 25 units/L (5-40) 12/10/16 05:37 ALT 11 units/L (7-56) 12/10/16 05:37 Alkaline Phosphatase 67 units/L (35-129) 12/10/16 05:37 Lactate Dehydrogenase 192 units/L (91-180) H 12/13/16 22:08 Total Creatine Kinase 77 units/L (30-135) 12/08/16 04:45 CK-MB (CK-2) 4.5 ng/mL (0.0-4.0) H 12/08/16 04:45 CK-MB (CK-2) Rel Index 5.8 (0-4) H 12/08/16 04:45 Troponin T < 0.010 ng/mL (0.00-0.029) 12/08/16 04:45 NT-Pro-B Natriuret Pep 1229 pg/mL (0-900) H 12/07/16 17:37 Total Protein 6.7 g/dL (6.3-8.2) 12/10/16 05:37 Albumin 3.6 g/dL (3.9-5) L 12/10/16 05:37 Albumin/Globulin Ratio 1.2 % 12/10/16 05:37 Lipase 39 units/L (13-60) 12/12/16 04:30 TSH 2.930 mlU/mL (0.270-4.200) 12/10/16 05:37 Urine Color Yellow (Yellow) 12/07/16 21:24 Urine Turbidity Clear (Clear) 12/07/16 21:24 Urine pH 8.0 (5.0-7.0) H 12/07/16 21:24 Ur Specific [place] 1.012 (1.003-1.030) 12/07/16 21:24 Urine Protein 100 mg/dl mg/dL (Negative) 12/07/16 21:24 Urine Glucose (UA) Neg mg/dL (Negative) 12/07/16 21:24 Urine Ketones 20 mg/dL (Negative) 12/07/16 21:24 Urine Blood Neg (Negative) 12/07/16 21:24 Urine Nitrite Neg (Negative) 12/07/16 21:24 Urine Bilirubin Neg (Negative) 12/07/16 21:24 Urine Urobilinogen < 2.0 mg/dL (<2.0) 12/07/16 21:24 Ur Leukocyte Esterase Sm (Negative) 12/07/16 21:24 Urine WBC (Auto) 2.0 /HPF (0.0-6.0) 12/07/16 21:24 Urine RBC (Auto) 10.0 /HPF (0.0-6.0) 12/07/16 21:24 U Epithel Cells (Auto) 2.0 /HPF (0-13.0) 12/07/16 21:24 Urine Mucus Few /HPF 12/07/16 21:24 Blood Type O POSITIVE 12/18/16 09:00 Antibody Screen TNR 12/18/16 09:00 LAVON Antibody Screen Negative 12/18/16 09:00
--- NOTE | 2016-12-19 10:38 | Progress Note ---
Assessment and Plan Nausea/weakness CTA chest - no PE or dissection s/p colonoscopy: Right colon mass Hyponatremia Hypertension Afib, paroxysmal lovenox on hold for surgery Tele showed a long pauses noted while patient is straining on the toilet, likely vagally mediated coreg reduced to 12.5mg bid. No reoccurrence. [facility] 01/2015 showed a mild non-obstructive disease, EF 65-70%. Recommendation: May proceed with surgery cardiac lafleur. Will continue to follow. Subjective Date of service: 12/19/16 Principal diagnosis: N/V, abd pain Interval history: Patient denies chest pain and shortness of breath. No events on telemetry overnight. Objective Vital Signs Temp Pulse Resp BP Pulse Ox 12/19/16 08:40 98.3 F 64 18 155/70 98 12/19/16 05:00 97.9 F 76 20 155/67 96 12/19/16 00:31 97.9 F 63 20 173/78 96 12/18/16 22:17 20 12/18/16 20:39 97.8 F 64 20 200/95 95 12/18/16 20:25 64 12/18/16 16:30 98.0 F 60 20 161/78 99 12/18/16 15:16 20 12/18/16 15:14 61 12/18/16 12:10 98.0 F 62 22 125/67 94 - Physical Examination General: No Apparent Distress HEENT: Positive: PERRL Neck: Positive: trachea midline Cardiac: Positive: Reg Rate and Rhythm Lungs: Positive: Decreased Breath Sounds Neuro: Positive: Grossly Intact Skin: Positive: Clear Extremities: Absent: edema - Imaging and Cardiology EKG: image reviewed
[2016-12-19] MEDS ORDERED: DILAUDID ONE ×2 (10:40→14:23)
[2016-12-19] MEDS ORDERED: DIPRIVAN 10 MG/ML IV ONE (10:40)
[2016-12-19] MEDS ORDERED: XYLOCAINE MPF 2% ONE (10:40)
[2016-12-19] MEDS ORDERED: ZEMURON IV ONE (10:40)
[2016-12-19] MEDS: COREG PO SCH ×2 (11:12→21:59)
[2016-12-19] MEDS: LOVENOX SUB-Q SCH (11:13)
[2016-12-19] MEDS: PROTONIX PO SCH (11:13)
--- NOTE | 2016-12-19 11:58 | Anesthesia Day of Surgery ---
Anesthesia Day of Surgery - Day of Surgery Patient Examined: Yes Patient H&P Reviewed: Yes Patient is NPO: Yes Beta Blockers: Yes
[2016-12-19] MEDS ORDERED: ANCEF/STERILE WATER 2 GM/20 ML 2 GM/20 ML SYRINGE IV ONE (12:10)
[2016-12-19] MEDS ORDERED: NACL 0.9% IR ONE (12:48)
[2016-12-19] MEDS ORDERED: FLAGYL 500 MG/100 ML 500 MG/100 ML BAG IV ONE (12:50)
[2016-12-19] MEDS ORDERED: AMIDATE IV ONE (13:00)
[2016-12-19] MEDS ORDERED: NEO SYNEPHRINE/NS Syringe(OR USE) IV ONE (13:00)
[2016-12-19] MEDS ORDERED: ANCEF/STERILE WATER 2 GM/20 ML IV NR (13:00)
[2016-12-19] MEDS ORDERED: ZOFRAN ONE (13:23)
[2016-12-19] MEDS ORDERED: BLOXIVERZ ONE (13:50)
[2016-12-19] MEDS ORDERED: ROBINUL ONE (13:50)
[2016-12-19] MEDS ORDERED: TORADOL ONE (14:13)
--- NOTE | 2016-12-19 14:29 | Post Operative Note ---
Pre-op diagnosis: right colon mass Post-op diagnosis: same Findings: 5cm right colon mass adjacent to hepatic flexure Procedure: Exploratory laparotomy, extended right hemicolectomy, primary anastomosis. Anesthesia: GETA Surgeon: NISSA MORENO Estimated blood loss: minimal Pathology: list (right colon) Condition: stable Disposition: floor
[2016-12-19] MEDS ORDERED: ZOFRAN IV PRN (14:39)
[2016-12-19] MEDS: DILAUDID IV PRN ×3 (14:40→15:05)
[2016-12-19] MEDS: MORPHINE IV PRN (20:38)
[2016-12-19] MEDS: ANCEF/NS 1 GM/50 ML 1 GM/50 ML BAG IV SCH (20:39)
[2016-12-19] MEDS: NACL 0.45% 1000 ML 1,000 ML IV SCH (20:40)
--- NOTE | 2016-12-19 20:47 | Consultation ---
History of Present Illness - Reason for Consult Consult date: 12/19/16 - History of Present Illness Patient seen/examined, resting in bed, day of surgery right herman colectomy for 5cm mass in the hepatic flecture.via laparotomy.Will await path report. Grand daughter at the bed side, case d/w both. Past History Past Medical History: atrial fib, CAD, cancer, hypertension, other (Breast Cancer) Past Surgical History: hysterectomy, Other (polypectomy.and mastectomy) Social history: denies: smoking, alcohol abuse Family history: cancer, hypertension Medications and Allergies Allergies Allergy/AdvReac Type Severity Reaction Status Date / Time adhesive Allergy Rash Verified 12/07/16 17:22 cyclobenzaprine Allergy Swelling Verified 12/07/16 17:22 acetaminophen [From Tylenol] AdvReac Unknown Verified 12/07/16 17:22 codeine AdvReac Nausea Verified 12/07/16 17:22 Home Medications Medication Instructions Recorded Confirmed Last Taken Type Carvedilol 12.5 mg PO BID 08/05/14 12/07/16 12/07/16 08:00 History Losartan Potassium 50 mg PO DAILY 08/05/14 12/07/16 12/07/16 08:00 History Pregabalin [Lyrica] 150 mg PO BID 08/05/14 12/07/16 12/07/16 08:00 History cycloSPORINE [Restasis 0.05%] 2 drop OU BID 08/05/14 12/07/16 12/06/16 21:00 History Triamter/Hctz 37.5-25 mg 0.5 tab PO QDAY 12/07/16 12/07/16 12/07/16 12:00 History [Maxzide-25] Active Meds: Active Medications Carvedilol (Coreg) 12.5 mg PO BID MILO Last Admin: 12/19/16 11:12 Dose: Not Given Hydromorphone HCl (Dilaudid) 0.5 mg IV Q10MIN PRN PRN Reason: Pain , Severe (7-10) Stop: 12/19/16 23:59 Last Admin: 12/19/16 15:05 Dose: 0.5 mg Sodium Chloride (Nacl 0.45% 1000 Ml) 1,000 mls @ 50 mls/hr IV DIRECT MILO Last Admin: 12/19/16 20:40 Dose: 50 mls/hr Cefazolin Sodium (Ancef/Ns 1 Gm/50 Ml) 1 gm in 50 mls @ 100 mls/hr IV Q8H MILO Last Admin: 12/19/16 20:39 Dose: 100 mls/hr Morphine Sulfate (Morphine) 4 mg IV Q4H PRN PRN Reason: Pain , Severe (7-10) Last Admin: 12/19/16 20:38 Dose: 4 mg Ondansetron HCl (Zofran) 4 mg IV Q8H PRN PRN Reason: N/V unrelieved by Reglan Review of Systems Constitutional: weakness Breasts: deferred Exam - Constitutional Vitals: Temp Pulse Resp BP Pulse Ox 98 F 72 18 145/68 96 12/19/16 15:30 12/19/16 15:30 12/19/16 20:38 12/19/16 15:30 12/19/16 15:30 General appearance: Present: no acute distress, well-nourished - EENT Eyes: Present: PERRL ENT: hearing intact, clear oral mucosa - Neck Neck: Present: supple, normal ROM - Respiratory Respiratory effort: normal Respiratory: bilateral: CTA - Cardiovascular Heart Sounds: Present: S1 & S2. Absent: rub, click - Extremities Extremities: pulses symmetrical, No edema Peripheral Pulses: within normal limits - Abdominal General gastrointestinal: Present: soft, tender, non-distended, normal bowel sounds Female genitourinary: Present: deferred - Rectal Rectal Exam: deferred - Integumentary Integumentary: Present: clear, warm, dry - Musculoskeletal Musculoskeletal: gait normal, strength equal bilaterally - Psychiatric Psychiatric: appropriate mood/affect, intact judgment & insight - Neurologic Neurologic: CNII-XII intact, moves all extremities Results - Labs CBC & Chem 7: 12/18/16 09:00 12/18/16 09:00 Labs: Abnormal lab results 12/19/16 Range/Units 14:34 POC Glucose 126 H (70-105) Assessment and Plan - Patient Problems (1) Abnormal loss of weight Current Visit: Yes Status: Acute Plan to address problem: very mild as per patient, less than 5% of her body mass. (2) Atrial fibrillation Current Visit: Yes Status: Acute Qualifiers: Atrial fibrillation type: A Plan to address problem: to be kept in mind with surgery. cardiology on the case. cleared for surgery, and proceeded. (3) Hyponatremia Current Visit: Yes Status: Acute Plan to address problem: hydration judiciously. (4) Colonic mass Current Visit: Yes Status: Acute Plan to address problem: Scheduled for resection tomorrow. See notes above. Supposedly set for surgery this afternoon. Differed until cardiology clearance, as per Gen surgery. s/p resection today.
[2016-12-19] MEDS ORDERED: ceFAZolin 1 GM in NACL 0.9% 100 ML IV SCH (22:00)
[2016-12-20] MEDS: MORPHINE IV PRN ×6 (00:27→21:55)
--- NOTE | 2016-12-20 01:39 | Operative Report ---
PREOPERATIVE DIAGNOSIS: Right colon mass. POSTOPERATIVE DIAGNOSIS: Right colon mass. PROCEDURE: Exploratory laparotomy with an extended right hemicolectomy with a primary anastomosis of the terminal ileum to the proximal descending colon, take down of the splenic flexure. ANESTHESIA: The procedure was done under general. SURGEON: James Patel M.D. SPECIAL MACHINE STITCHER: Niles Santamaria M.D. BLOOD LOSS: Minimal. PATHOLOGY: Consisted of extended right hemicolectomy, which is the terminal ileum, right colon, hepatic flexure, transverse colon and proximal descending colon. CONDITION: Stable. DISPOSITION: To the floor. DESCRIPTION OF PROCEDURE: After informed consent, the patient was brought to the operating room, she was induced under general anesthesia with compression stockings in place. An [place] drape was used. An NG tube was placed per anesthesia and a Ruffin was already in place. The patient was then sterilely prepped and draped in the supine fashion. As mentioned, she received IV antibiotics. A standard midline incision was made from below the xiphoid process down to just above the pubic symphysis. It was carried down sharply through the skin with a scalpel. I dissected down to the underlying linea alba. It was incised. The peritoneum was elevated between two curved hemostats. A small ramin was made and intra-abdominal cavity was entered. Then, I used a blade to the [place] to facilitate optimum exposure. There was a large palpable mass in the hepatic flexure of the right colon distal to the hepatic flexure. The liver felt smooth with no obvious liver mets. There were no other abnormal findings identified with a question of some adenopathy in the mesentery around the lesion. I basically mobilized the right colon along the white line of [place] and brought up toward the midline and I took down the hepatic flexure as well as the splenic flexure. Then, once this was accomplished, I cleared away the mesentery from the terminal ileum and fired the FRED 65 stapler across it. I used the LigaSure device and basically I performed the hemicolectomy with great care to include the lymph nodes. Right ureter was identified and spared. I cleared away the mesentery from the splenic area of the proximal descending colon. I took down the mesentery with LigaSure device along with the gastrocolic omentum and freed it up very nicely. There was a large palpable lesion about 5 cm in the hepatic flexure proximal transverse colon just past the hepatic flexure. I took the colon beyond the level of the middle colic artery included the right colic artery and then once this was accomplished, I had fired distal FRED stapler and removed the specimen sent for permanent pathology. Then, I aligned [id number] the descending colon with the terminal ileum. I placed a toe stitch with 3-0 Vicryls and then I placed lap pads to avoid spillage. I made a line in the antimesenteric borders and made small holes with the Bovie and hemostat and then fired a FRED stapler 75 across the antimesenteric border of the terminal ileum and the descending colon with a nice widely patent anastomosis and I fired a TA stapler distally across it and oversewed the staple line with interrupted 3-0 Vicryl Lembert stitches. I closed the mesenteric defect with 3-0 Vicryl. The lumen was widely patent and I washed out the abdomen with normal saline until clear, closed the abdomen with interrupted #1 Vicryls and tika for skin. The sponge and needle count was correct x 2 at the completion of procedure. The patient was hemodynamically stable throughout, the specimen was sent to pathology. There was only minimal blood loss. JOB# [id number] KODY/SANDRA
[2016-12-20] MEDS: ANCEF/NS 1 GM/50 ML 1 GM/50 ML BAG IV SCH ×2 (04:45→12:08)
[2016-12-20 06:12] LABS: Hematocrit 23.6 % (30.3-42.9); Hemoglobin 7.7 gm/dl (10.1-14.3); Mean Corpuscular HGB Conc 33 % (30-34); Mean Corpuscular Hemoglobin 27 pg (28-32); Mean Corpuscular Volume 82 fl (79-97); Red Blood Count 2.87 M/mm3 (3.65-5.03); Red Cell Distribution Width 14.2 % (13.2-15.2); White Blood Count 7.6 K/mm3 (4.5-11.0)
[2016-12-20 06:14] LABS: Platelet Count 280 K/mm3 (140-440)
[2016-12-20 06:28] LABS: Anion Gap 15 mmol/L; Blood Urea Nitrogen 4 mg/dL (7-17); Calcium 7.6 mg/dL (8.4-10.2); Carbon Dioxide 26 mmol/L (22-30); Chloride 103.8 mmol/L (98-107); Glucose 92 mg/dL (65-100); Potassium 3.3 mmol/L (3.6-5.0); Sodium 141 mmol/L (137-145)
--- NOTE | 2016-12-20 08:12 | Event Note ---
Date: 12/20/16 POD 1 s/p extended right hemicolectomy, VSS AF, minimal NG drainage, dressing dry and intact, H and HCT noted, could be lab error or dilutional, I do not think patient is bleeding, will repeat CBC, d/c NG, d/c silverio, PT consult, hold chemical DVT prophylaxis until question of decrease HCT settled. check path.
[2016-12-20 08:34] LABS: Hematocrit 23.6 % (30.3-42.9); Hemoglobin 7.7 gm/dl (10.1-14.3); Mean Corpuscular Hemoglobin 27 pg (28-32); Mean Corpuscular Volume 82 fl (79-97); Red Blood Count 2.87 M/mm3 (3.65-5.03); White Blood Count 7.6 K/mm3 (4.5-11.0)
[2016-12-20 08:35] LABS: Mean Corpuscular HGB Conc 33 % (30-34); Platelet Count 280 K/mm3 (140-440); Red Cell Distribution Width 14.2 % (13.2-15.2)
[2016-12-20 09:33] LABS: Anisocytosis 1+; Basophils % (Manual) 0 % (0.0-1.8); Blastocytes % (Manual) 0 %; Burr Cells 1+; Eosinophils % (Manual) 0 % (0.0-4.3)
[2016-12-20 09:34] LABS: Diff Status Complete
[2016-12-20] MEDS: COREG PO SCH ×2 (10:16→21:32)
--- NOTE | 2016-12-20 10:25 | Progress Note ---
Assessment and Plan Nausea/weakness CTA chest - no PE or dissection Right colon mass s/p extended right hemicolectomy Hyponatremia Hypertension Afib, paroxysmal lovenox on hold due to acute drop of HCT post surgery Tele showed a long pauses noted while patient is straining on the toilet, likely vagally mediated coreg reduced to 12.5mg bid. No reoccurrence. [facility] 01/2015 showed a mild non-obstructive disease, EF 65-70%. Continue beta roni therapy for suppression of her paroxysmal afib. Subjective Date of service: 12/20/16 Principal diagnosis: N/V, abd pain Interval history: s/p extended right hemicolectomy on yesterday. Noted acute drop in HCT in morning labs. Patient denies chest pain and shortness of breath. No events on telemetry overnight. Objective Vital Signs Temp Pulse Resp BP Pulse Ox 12/20/16 08:40 98.5 F 74 18 136/63 95 12/20/16 04:45 18 12/20/16 04:15 98.4 F 74 20 132/60 97 12/20/16 00:52 98.3 F 80 20 171/72 98 12/20/16 00:27 18 12/19/16 22:00 72 20 97 12/19/16 21:59 78 172/78 12/19/16 20:46 97.5 F L 78 20 172/78 96 12/19/16 20:38 18 12/19/16 15:30 98 F 72 14 145/68 96 12/19/16 15:15 97 H 14 134/73 96 12/19/16 15:00 101 H 14 136/65 94 12/19/16 14:45 110 H 14 91/51 98 12/19/16 14:40 113 H 13 108/45 97 12/19/16 14:35 110 H 16 90/46 95 12/19/16 14:30 101 H 19 89/56 96 12/19/16 14:26 97.8 F 86 14 94/51 97 12/19/16 11:15 99.5 F 67 14 193/76 98 - Physical Examination General: No Apparent Distress HEENT: Positive: PERRL Cardiac: Positive: Reg Rate and Rhythm Lungs: Positive: Decreased Breath Sounds Neuro: Positive: Grossly Intact - Labs and Meds CBC 12/20/16 12/20/16 Range/Units 05:30 05:30 WBC 7.6 7.6 (4.5-11.0) K/mm3 RBC 2.87 L 2.87 L (3.65-5.03) M/mm3 Hgb 7.7 L 7.7 L (10.1-14.3) gm/dl Hct 23.6 L 23.6 L (30.3-42.9) % Plt Count 280 280 (140-440) K/mm3 Lymph # Not Reportable [place] # Not Reportable Eos # Not Reportable Baso # Not Reportable Comprehensive Metabolic Panel 12/20/16 Range/Units 05:30 Sodium 141 (137-145) mmol/L Potassium 3.3 L (3.6-5.0) mmol/L Chloride 103.8 (98-107) mmol/L Carbon Dioxide 26 (22-30) mmol/L BUN 4 L (7-17) mg/dL Creatinine 0.4 L (0.7-1.2) mg/dL Glucose 92 (65-100) mg/dL Calcium 7.6 L (8.4-10.2) mg/dL - Imaging and Cardiology EKG: image reviewed
[2016-12-20] MEDS: D5NS 1,000 ML IV SCH (12:11)
[2016-12-20] MEDS ORDERED: FLAGYL 500 MG/100 ML 500 MG/100 ML BAG IV SCH (14:00)
--- NOTE | 2016-12-20 14:39 | Progress Note ---
Assessment and Plan Abdominal pain. - Secondary to colon cancer. - s/p surgery today by Dr. Patel. tolerated well - will cont iv fluid Acute hypoxic respiratory failure. Now resolved Atrial fibrillation. - She was on Coreg and lovenox. Lovenox will be restarted today. Hypertension. - Pt now NPO - will place on as needed hydralazine Hyponatremia. - Now resolved with iv fluid Hypokalemia. cont to replace, repeat BMP DVT prophylaxis. Cont on Lovenox Full code status. I discussed with patient and daughter at bedside. Subjective Date of service: 12/20/16 Principal diagnosis: N/V, abd pain Interval history: Patient seen and examined. Medical records and medication list reviewed. No acute event overnight noted by the RN. Status post surgery yesterday Patient denies any chest pain or difficulty breathing. Had PT eval today and tolerated it well. Discussed plan of care at bedside with patient, still nothing by mouth. Complains of dry mouth and abdominal pain Objective - Exam Narrative Exam: Gen appearance: Not in acute distress, obese HEENT: Normocephalic, atraumatic Neck: Supple, no JVD Lungs: Clear to auscultation bilaterally, no crackles, or wheezes. Heart: S1 and S2 regular, no murmurs, no gallops, rub Abdomen : surgical dressing placed on mid abdomen Extremities :No edema, no clubbing or cyanosis Neuro: Awake, alert,oriented, normal speech, no focal neurological signs Psych: normal mood. - Constitutional Vitals: Vital Signs - 12hr 12/20/16 12/20/16 12/20/16 04:15 04:45 08:40 Temperature 98.4 F 98.5 F Pulse Rate 74 74 Respiratory 20 18 18 Rate Blood Pressure 132/60 136/63 O2 Sat by Pulse 97 95 Oximetry 12/20/16 12:55 Temperature 98.3 F Pulse Rate 76 Respiratory 18 Rate Blood Pressure 130/77 O2 Sat by Pulse 96 Oximetry - Labs CBC & Chem 7: 12/20/16 05:30 12/20/16 05:30 Labs: Abnormal lab results 12/19/16 12/19/16 12/20/16 Range/Units 14:34 21:37 05:30 RBC 2.87 L (3.65-5.03) M/mm3 Hgb 7.7 L (10.1-14.3) gm/dl Hct 23.6 L (30.3-42.9) % MCH 27 L (28-32) pg Seg Neuts % (Manual) (40.0-70.0) % Lymphocytes % (Manual) (13.4-35.0) % Lymphocytes # (Manual) (1.2-5.4) K/mm3 Potassium (3.6-5.0) mmol/L BUN (7-17) mg/dL Creatinine (0.7-1.2) mg/dL POC Glucose 126 H 113 H (70-105) Calcium (8.4-10.2) mg/dL 12/20/16 12/20/16 12/20/16 Range/Units 05:30 05:30 07:35 RBC 2.87 L (3.65-5.03) M/mm3 Hgb 7.7 L (10.1-14.3) gm/dl Hct 23.6 L (30.3-42.9) % MCH 27 L (28-32) pg Seg Neuts % (Manual) 84.0 H (40.0-70.0) % Lymphocytes % (Manual) 5.0 L (13.4-35.0) % Lymphocytes # (Manual) 0.4 L (1.2-5.4) K/mm3 Potassium 3.3 L (3.6-5.0) mmol/L BUN 4 L (7-17) mg/dL Creatinine 0.4 L (0.7-1.2) mg/dL POC Glucose 118 H (70-105) Calcium 7.6 L (8.4-10.2) mg/dL - Imaging and cardiology CT scan - abdomen: report reviewed
[2016-12-20] MEDS: CLEOCIN 600 MG/50 mL 600 MG/50 ML BAG IV SCH ×2 (15:17→21:26)
--- NOTE | 2016-12-20 21:20 | Consultation ---
History of Present Illness - Reason for Consult Consult date: 12/20/16 - History of Present Illness Patient seen/examined, labs /notes reviewed, case discussed. HGb slight drop, may be just equilibration following surgery.i agree with repeating cbc, and go from there. Past History Past Medical History: atrial fib, CAD, cancer, hypertension, other (Breast Cancer) Past Surgical History: hysterectomy, Other (polypectomy.and mastectomy) Social history: denies: smoking, alcohol abuse Family history: cancer, hypertension Medications and Allergies Allergies Allergy/AdvReac Type Severity Reaction Status Date / Time Penicillins Allergy Intermediate Rash Verified 12/20/16 13:35 adhesive Allergy Rash Verified 12/07/16 17:22 cyclobenzaprine Allergy Swelling Verified 12/07/16 17:22 acetaminophen [From Tylenol] AdvReac Unknown Verified 12/07/16 17:22 codeine AdvReac Nausea Verified 12/07/16 17:22 Home Medications Medication Instructions Recorded Confirmed Last Taken Type Carvedilol 12.5 mg PO BID 08/05/14 12/07/16 12/07/16 08:00 History Losartan Potassium 50 mg PO DAILY 08/05/14 12/07/16 12/07/16 08:00 History Pregabalin [Lyrica] 150 mg PO BID 08/05/14 12/07/16 12/07/16 08:00 History cycloSPORINE [Restasis 0.05%] 2 drop OU BID 08/05/14 12/07/16 12/06/16 21:00 History Triamter/Hctz 37.5-25 mg 0.5 tab PO QDAY 12/07/16 12/07/16 12/07/16 12:00 History [Maxzide-25] Active Meds: Active Medications Carvedilol (Coreg) 12.5 mg PO BID MILO Last Admin: 12/20/16 10:16 Dose: Not Given Dextrose/Sodium Chloride (D5ns) 1,000 mls @ 75 mls/hr IV DIRECT MILO Last Admin: 12/20/16 12:11 Dose: 75 mls/hr Clindamycin HCl (Cleocin 600 Mg/50 Ml) 600 mg in 50 mls @ 100 mls/hr IV Q8HR MILO PRN Reason: Protocol Last Admin: 12/20/16 15:17 Dose: 100 mls/hr Morphine Sulfate (Morphine) 4 mg IV Q4H PRN PRN Reason: Pain , Severe (7-10) Last Admin: 12/20/16 18:04 Dose: 4 mg Ondansetron HCl (Zofran) 4 mg IV Q8H PRN PRN Reason: N/V unrelieved by Reglan Potassium Chloride (K-Dur) 20 meq PO QDAY MILO Review of Systems Constitutional: fatigue Breasts: deferred Exam - Constitutional Vitals: Temp Pulse Resp BP Pulse Ox 99.4 F 83 20 138/63 93 12/20/16 19:46 12/20/16 19:46 12/20/16 19:46 12/20/16 19:46 12/20/16 19:46 General appearance: Present: mild distress, well-nourished - EENT Eyes: Present: PERRL ENT: hearing intact, clear oral mucosa - Neck Neck: Present: supple, normal ROM - Respiratory Respiratory effort: normal Respiratory: bilateral: CTA - Cardiovascular Heart Sounds: Present: S1 & S2. Absent: rub, click - Extremities Extremities: pulses symmetrical, No edema Peripheral Pulses: within normal limits - Abdominal General gastrointestinal: Present: soft, non-tender, non-distended, normal bowel sounds Female genitourinary: Present: deferred - Rectal Rectal Exam: deferred - Integumentary Integumentary: Present: clear, warm, dry - Musculoskeletal Musculoskeletal: gait normal, strength equal bilaterally - Psychiatric Psychiatric: appropriate mood/affect, intact judgment & insight - Neurologic Neurologic: CNII-XII intact, moves all extremities Results - Labs CBC & Chem 7: 12/20/16 05:30 12/20/16 05:30 Labs: Abnormal lab results 12/19/16 12/20/16 12/20/16 Range/Units 21:37 05:30 05:30 RBC 2.87 L (3.65-5.03) M/mm3 Hgb 7.7 L (10.1-14.3) gm/dl Hct 23.6 L (30.3-42.9) % MCH 27 L (28-32) pg Seg Neuts % (Manual) (40.0-70.0) % Lymphocytes % (Manual) (13.4-35.0) % Lymphocytes # (Manual) (1.2-5.4) K/mm3 Potassium 3.3 L (3.6-5.0) mmol/L BUN 4 L (7-17) mg/dL Creatinine 0.4 L (0.7-1.2) mg/dL POC Glucose 113 H (70-105) Calcium 7.6 L (8.4-10.2) mg/dL 12/20/16 12/20/16 12/20/16 Range/Units 05:30 07:35 11:41 RBC 2.87 L (3.65-5.03) M/mm3 Hgb 7.7 L (10.1-14.3) gm/dl Hct 23.6 L (30.3-42.9) % MCH 27 L (28-32) pg Seg Neuts % (Manual) 84.0 H (40.0-70.0) % Lymphocytes % (Manual) 5.0 L (13.4-35.0) % Lymphocytes # (Manual) 0.4 L (1.2-5.4) K/mm3 Potassium (3.6-5.0) mmol/L BUN (7-17) mg/dL Creatinine (0.7-1.2) mg/dL POC Glucose 118 H 122 H (70-105) Calcium (8.4-10.2) mg/dL 12/20/16 Range/Units 16:59 RBC (3.65-5.03) M/mm3 Hgb (10.1-14.3) gm/dl Hct (30.3-42.9) % MCH (28-32) pg Seg Neuts % (Manual) (40.0-70.0) % Lymphocytes % (Manual) (13.4-35.0) % Lymphocytes # (Manual) (1.2-5.4) K/mm3 Potassium (3.6-5.0) mmol/L BUN (7-17) mg/dL Creatinine (0.7-1.2) mg/dL POC Glucose 129 H (70-105) Calcium (8.4-10.2) mg/dL Assessment and Plan - Patient Problems (1) Abnormal loss of weight Current Visit: Yes Status: Acute Plan to address problem: very mild as per patient, less than 5% of her body mass. (2) Atrial fibrillation Current Visit: Yes Status: Acute Qualifiers: Atrial fibrillation type: A Plan to address problem: to be kept in mind with surgery. cardiology on the case. cleared for surgery, and proceeded. post op day #1 hemicolectomy. (3) Hyponatremia Current Visit: Yes Status: Acute Plan to address problem: hydration judiciously. (4) Colonic mass Current Visit: Yes Status: Acute Plan to address problem: Scheduled for resection tomorrow. See notes above. Supposedly set for surgery this afternoon. Differed until cardiology clearance, as per Gen surgery. s/p resection today. as above.
[2016-12-21] MEDS ORDERED: APRESOLINE IV PRN (00:03)
[2016-12-21] MEDS: MORPHINE IV PRN ×3 (04:00→18:44)
[2016-12-21] MEDS: CLEOCIN 600 MG/50 mL 600 MG/50 ML BAG IV SCH (06:13)
[2016-12-21] MEDS: D5NS 1,000 ML IV SCH ×2 (06:14→18:44)
[2016-12-21 07:51] LABS: Basophils % (Auto) 0.2 % (0.0-1.8); Eosinophils % (Auto) 1.3 % (0.0-4.3); Hematocrit 27.7 % (30.3-42.9); Hemoglobin 8.8 gm/dl (10.1-14.3); Mean Corpuscular HGB Conc 32 % (30-34); Mean Corpuscular Volume 81 fl (79-97); Platelet Count 297 K/mm3 (140-440); Red Cell Distribution Width 14.6 % (13.2-15.2); White Blood Count 17.4 K/mm3 (4.5-11.0)
[2016-12-21 07:54] LABS: Mean Corpuscular Hemoglobin 26 pg (28-32)
[2016-12-21 08:03] LABS: Anion Gap 10 mmol/L; Blood Urea Nitrogen 5 mg/dL (7-17); Calcium 8.5 mg/dL (8.4-10.2); Carbon Dioxide 32 mmol/L (22-30); Chloride 101.4 mmol/L (98-107); Glucose 142 mg/dL (65-100); Potassium 3.6 mmol/L (3.6-5.0); Sodium 140 mmol/L (137-145)
[2016-12-21] MEDS: PEPCID IV SCH ×2 (09:29→21:54)
[2016-12-21] MEDS: K-DUR PO SCH (09:29)
[2016-12-21] MEDS: COREG PO SCH ×2 (09:30→21:54)
[2016-12-21] MEDS ORDERED: PROTONIX IV SCH (10:00)
--- NOTE | 2016-12-21 10:26 | Progress Note ---
Assessment and Plan Nausea/weakness CTA chest - no PE or dissection Right colon mass s/p extended right hemicolectomy Hyponatremia Hypertension Afib, paroxysmal lovenox on hold due to acute drop of HCT post surgery Tele showed a long pauses noted while patient is straining on the toilet, likely vagally mediated coreg reduced to 12.5mg bid. No reoccurrence. [facility] 01/2015 showed a mild non-obstructive disease, EF 65-70%. Continue beta roni therapy for suppression of her paroxysmal afib. Start anticoagulation with OK with surgeon. Subjective Date of service: 12/21/16 Principal diagnosis: N/V, abd pain Interval history: Patient denies chest pain and shortness of breath. No events on telemetry overnight. H&H improved, HCT now 27.7. Objective Vital Signs Temp Pulse Resp BP Pulse Ox 12/21/16 09:30 90 116/54 12/21/16 07:50 98.3 F 73 20 114/57 96 12/21/16 06:04 97.4 F L 90 20 111/56 95 12/21/16 00:43 99.5 F 100 H 20 105/55 93 12/20/16 20:15 99 H 12/20/16 19:46 99.4 F 83 20 138/63 93 12/20/16 17:53 97.8 F 78 18 186/74 96 12/20/16 12:55 98.3 F 76 18 130/77 96 - Physical Examination General: No Apparent Distress HEENT: Positive: PERRL Neck: Positive: trachea midline Cardiac: Positive: Reg Rate and Rhythm Neuro: Positive: Grossly Intact Extremities: Absent: edema - Labs and Meds CBC 12/21/16 Range/Units 07:25 WBC 17.4 H (4.5-11.0) K/mm3 RBC 3.40 L (3.65-5.03) M/mm3 Hgb 8.8 L (10.1-14.3) gm/dl Hct 27.7 L (30.3-42.9) % Plt Count 297 (140-440) K/mm3 Lymph # 0.8 L (1.2-5.4) K/mm3 [place] # 1.6 H (0.0-0.8) K/mm3 Eos # 0.2 (0.0-0.4) K/mm3 Baso # 0.0 (0.0-0.1) K/mm3 Comprehensive Metabolic Panel 12/21/16 Range/Units 07:25 Sodium 140 (137-145) mmol/L Potassium 3.6 (3.6-5.0) mmol/L Chloride 101.4 (98-107) mmol/L Carbon Dioxide 32 H (22-30) mmol/L BUN 5 L (7-17) mg/dL Creatinine 0.5 L (0.7-1.2) mg/dL Glucose 142 H (65-100) mg/dL Calcium 8.5 (8.4-10.2) mg/dL - Imaging and Cardiology EKG: image reviewed
--- NOTE | 2016-12-21 11:03 | Event Note ---
Date: 12/21/16 POD 2 s/p right hemicolectomy, VSS AF, HGB better today (8.7 gm/dl), abd dressing dry, intact, hypoactive bs, no flatus or BM, path pending, will implement chemical DVT prophylaxis, PT consult/mobilize, decrease morphine dose.
--- NOTE | 2016-12-21 14:49 | Progress Note ---
Assessment and Plan Abdominal pain. - likely Secondary to colon cancer. Path report pending - s/p surgery on 12/20/[address] Patel. tolerated well - will cont iv fluid Acute hypoxic respiratory failure. Now resolved Atrial fibrillation. - She is rate controlled now, no anticoagulation considering bleeding risk Hypertension. - Pt now NPO - placed on as needed hydralazine Hyponatremia. - Now resolved with iv fluid Hypokalemia. cont to replace, repeat BMP DVT prophylaxis. Cont on Lovenox Full code status. I discussed with patient and daughter at bedside. Subjective Date of service: 12/21/16 Principal diagnosis: N/V, abd pain Interval history: Patient seen and examined. Medical records and medication list reviewed. No acute event overnight noted by the RN. POD 2 s/p right hemicolectomy Patient denies any chest pain or difficulty breathing. Tolerating PT eval Discussed plan of care at bedside with patient, still nothing by mouth. Complains of dry mouth and abdominal pain but controlled with pain medication Family wants SNF placement WBC count slightly elevated today Objective - Exam Narrative Exam: Gen appearance: Not in acute distress, obese HEENT: Normocephalic, atraumatic Neck: Supple, no JVD Lungs: Clear to auscultation bilaterally, no crackles, or wheezes. Heart: S1 and S2 regular, no murmurs, no gallops, rub Abdomen : surgical dressing placed on mid abdomen Extremities :No edema, no clubbing or cyanosis Neuro: Awake, alert,oriented, normal speech, no focal neurological signs Psych: normal mood. - Constitutional Vitals: Vital Signs - 12hr 12/21/16 12/21/16 12/21/16 06:04 07:50 09:30 Temperature 97.4 F L 98.3 F Pulse Rate 90 73 90 Respiratory 20 20 Rate Blood Pressure 111/56 114/57 116/54 O2 Sat by Pulse 95 96 Oximetry 12/21/16 12:35 Temperature 98.4 F Pulse Rate 72 Respiratory 20 Rate Blood Pressure 124/60 O2 Sat by Pulse 99 Oximetry - Labs CBC & Chem 7: 12/21/16 07:25 12/21/16 07:25 Labs: Abnormal lab results 12/20/16 12/20/16 12/20/16 Range/Units 11:41 16:59 22:23 WBC (4.5-11.0) K/mm3 RBC (3.65-5.03) M/mm3 Hgb (10.1-14.3) gm/dl Hct (30.3-42.9) % MCH (28-32) pg Lymph % (Auto) (13.4-35.0) % [place] % (Auto) (0.0-7.3) % Lymph # (1.2-5.4) K/mm3 [place] # (0.0-0.8) K/mm3 Seg Neutrophils % (40.0-70.0) % Seg Neutrophils # (1.8-7.7) K/mm3 Carbon Dioxide (22-30) mmol/L BUN (7-17) mg/dL Creatinine (0.7-1.2) mg/dL Glucose (65-100) mg/dL POC Glucose 122 H 129 H 118 H (70-105) 12/21/16 12/21/16 12/21/16 Range/Units 07:25 07:25 07:58 WBC 17.4 H (4.5-11.0) K/mm3 RBC 3.40 L (3.65-5.03) M/mm3 Hgb 8.8 L (10.1-14.3) gm/dl Hct 27.7 L (30.3-42.9) % MCH 26 L (28-32) pg Lymph % (Auto) 4.6 L (13.4-35.0) % [place] % (Auto) 9.1 H (0.0-7.3) % Lymph # 0.8 L (1.2-5.4) K/mm3 [place] # 1.6 H (0.0-0.8) K/mm3 Seg Neutrophils % 84.8 H (40.0-70.0) % Seg Neutrophils # 14.8 H (1.8-7.7) K/mm3 Carbon Dioxide 32 H (22-30) mmol/L BUN 5 L (7-17) mg/dL Creatinine 0.5 L (0.7-1.2) mg/dL Glucose 142 H (65-100) mg/dL POC Glucose 155 H (70-105)
--- NOTE | 2016-12-21 21:50 | Consultation ---
History of Present Illness - Reason for Consult Consult date: 12/21/16 - History of Present Illness Patient seen/examined, labs reviewed, case d/w her. The daughter have left for the day. Patient c/o feels better today, than yesterday. WBC elevated. Hgb has adjusted to a fair level. Past History Past Medical History: atrial fib, CAD, cancer, hypertension, other (Breast Cancer) Past Surgical History: hysterectomy, Other (polypectomy.and mastectomy) Social history: denies: smoking, alcohol abuse Family history: cancer, hypertension Medications and Allergies Allergies Allergy/AdvReac Type Severity Reaction Status Date / Time Penicillins Allergy Intermediate Rash Verified 12/20/16 13:35 adhesive Allergy Rash Verified 12/07/16 17:22 cyclobenzaprine Allergy Swelling Verified 12/07/16 17:22 acetaminophen [From Tylenol] AdvReac Unknown Verified 12/07/16 17:22 codeine AdvReac Nausea Verified 12/07/16 17:22 Home Medications Medication Instructions Recorded Confirmed Last Taken Type Carvedilol 12.5 mg PO BID 08/05/14 12/07/16 12/07/16 08:00 History Losartan Potassium 50 mg PO DAILY 08/05/14 12/07/16 12/07/16 08:00 History Pregabalin [Lyrica] 150 mg PO BID 08/05/14 12/07/16 12/07/16 08:00 History cycloSPORINE [Restasis 0.05%] 2 drop OU BID 08/05/14 12/07/16 12/06/16 21:00 History Triamter/Hctz 37.5-25 mg 0.5 tab PO QDAY 12/07/16 12/07/16 12/07/16 12:00 History [Maxzide-25] Active Meds: Active Medications Carvedilol (Coreg) 12.5 mg PO BID [facility] Last Admin: 12/21/16 09:30 Dose: 12.5 mg Enoxaparin Sodium (Lovenox) 40 mg SUB-Q QDAY@2200 MILO Famotidine (Pepcid) 20 mg IV BID [facility] Last Admin: 12/21/16 09:29 Dose: 20 mg Hydralazine HCl (Apresoline) 5 mg IV Q30MIN PRN PRN Reason: Hypertension Dextrose/Sodium Chloride (D5ns) 1,000 mls @ 75 mls/hr IV DIRECT [facility] Last Admin: 12/21/16 18:44 Dose: 75 mls/hr Morphine Sulfate (Morphine) 2 mg IV Q4H PRN PRN Reason: Pain , Severe (7-10) Last Admin: 12/21/16 18:44 Dose: 2 mg Ondansetron HCl (Zofran) 4 mg IV Q8H PRN PRN Reason: N/V unrelieved by Reglan Potassium Chloride (K-Dur) 20 meq PO QDAY [facility] [place] Last Admin: 12/21/16 09:29 Dose: 20 meq Review of Systems Constitutional: fatigue Breasts: deferred Exam - Constitutional Vitals: Temp Pulse Resp BP Pulse Ox 98.7 F 75 20 128/60 99 12/21/16 21:01 12/21/16 21:01 12/21/16 21:01 12/21/16 21:01 12/21/16 21:01 General appearance: Present: mild distress, well-nourished - EENT Eyes: Present: PERRL ENT: hearing intact, clear oral mucosa - Neck Neck: Present: supple, normal ROM - Respiratory Respiratory effort: normal Respiratory: bilateral: CTA - Cardiovascular Heart Sounds: Present: S1 & S2. Absent: rub, click - Extremities Extremities: pulses symmetrical, No edema Peripheral Pulses: within normal limits - Abdominal General gastrointestinal: Present: soft, non-tender, non-distended, normal bowel sounds Female genitourinary: Present: deferred - Rectal Rectal Exam: deferred - Integumentary Integumentary: Present: clear, warm, dry - Musculoskeletal Musculoskeletal: gait normal, strength equal bilaterally - Psychiatric Psychiatric: appropriate mood/affect, intact judgment & insight - Neurologic Neurologic: CNII-XII intact, moves all extremities Results - Labs CBC & Chem 7: 12/21/16 07:25 12/21/16 07:25 Labs: Abnormal lab results 12/20/16 12/21/16 12/21/16 Range/Units 22:23 07:25 07:25 WBC 17.4 H (4.5-11.0) K/mm3 RBC 3.40 L (3.65-5.03) M/mm3 Hgb 8.8 L (10.1-14.3) gm/dl Hct 27.7 L (30.3-42.9) % MCH 26 L (28-32) pg Lymph % (Auto) 4.6 L (13.4-35.0) % [place] % (Auto) 9.1 H (0.0-7.3) % Lymph # 0.8 L (1.2-5.4) K/mm3 [place] # 1.6 H (0.0-0.8) K/mm3 Seg Neutrophils % 84.8 H (40.0-70.0) % Seg Neutrophils # 14.8 H (1.8-7.7) K/mm3 Carbon Dioxide 32 H (22-30) mmol/L BUN 5 L (7-17) mg/dL Creatinine 0.5 L (0.7-1.2) mg/dL Glucose 142 H (65-100) mg/dL POC Glucose 118 H (70-105) 12/21/16 12/21/16 12/21/16 Range/Units 07:58 11:56 17:18 WBC (4.5-11.0) K/mm3 RBC (3.65-5.03) M/mm3 Hgb (10.1-14.3) gm/dl Hct (30.3-42.9) % MCH (28-32) pg Lymph % (Auto) (13.4-35.0) % [place] % (Auto) (0.0-7.3) % Lymph # (1.2-5.4) K/mm3 [place] # (0.0-0.8) K/mm3 Seg Neutrophils % (40.0-70.0) % Seg Neutrophils # (1.8-7.7) K/mm3 Carbon Dioxide (22-30) mmol/L BUN (7-17) mg/dL Creatinine (0.7-1.2) mg/dL Glucose (65-100) mg/dL POC Glucose 155 H 154 H 136 H (70-105) Assessment and Plan - Patient Problems (1) Abnormal loss of weight Current Visit: Yes Status: Acute Plan to address problem: very mild as per patient, less than 5% of her body mass. (2) Atrial fibrillation Current Visit: Yes Status: Acute Qualifiers: Atrial fibrillation type: A Plan to address problem: to be kept in mind with surgery. cardiology on the case. cleared for surgery, and proceeded. post op day #1 hemicolectomy. (3) Hyponatremia Current Visit: Yes Status: Acute Plan to address problem: hydration judiciously. (4) Colonic mass Current Visit: Yes Status: Acute Plan to address problem: Scheduled for resection tomorrow. See notes above. Supposedly set for surgery this afternoon. Differed until cardiology clearance, as per Gen surgery. s/p resection today. as above. This is POD#2, doing ok.
[2016-12-21] MEDS: LOVENOX SUB-Q SCH (21:54)
[2016-12-22] MEDS: D5NS 1,000 ML IV SCH (06:15)
[2016-12-22] MEDS: MORPHINE IV PRN ×3 (06:20→22:20)
[2016-12-22 06:21] LABS: Basophils % (Auto) 0.7 % (0.0-1.8); Eosinophils % (Auto) 3.5 % (0.0-4.3); Hematocrit 26.8 % (30.3-42.9); Hemoglobin 8.6 gm/dl (10.1-14.3); Mean Corpuscular HGB Conc 32 % (30-34); Mean Corpuscular Hemoglobin 27 pg (28-32); Mean Corpuscular Volume 83 fl (79-97); Platelet Count 198 K/mm3 (140-440); Red Blood Count 3.23 M/mm3 (3.65-5.03); Red Cell Distribution Width 14.5 % (13.2-15.2); White Blood Count 12.7 K/mm3 (4.5-11.0)
[2016-12-22] MEDS: K-DUR PO SCH (10:09)
[2016-12-22] MEDS: COREG PO SCH ×2 (10:09→22:20)
--- NOTE | 2016-12-22 10:09 | Progress Note ---
Assessment and Plan Nausea/weakness CTA chest - no PE or dissection Right colon mass s/p extended right hemicolectomy Hyponatremia Hypertension Afib, paroxysmal on lovenox Tele showed a long pauses noted while patient is straining on the toilet, likely vagally mediated coreg reduced to 12.5mg bid. No reoccurrence. [facility] 01/2015 showed a mild non-obstructive disease, EF 65-70%. Continue beta roni therapy for suppression of her paroxysmal afib. Subjective Date of service: 12/22/16 Principal diagnosis: N/V, abd pain Interval history: Patient is resting in bed comfortably. No reported cardiac events on telemetry overnight. Objective Vital Signs Temp Pulse Resp BP Pulse Ox 12/22/16 07:50 97.8 F 70 20 142/87 96 12/22/16 06:05 98.0 F 68 18 150/67 97 12/22/16 00:52 97.7 F 72 18 138/64 97 12/21/16 22:54 60 12/21/16 21:01 98.7 F 75 20 128/60 99 12/21/16 17:18 20 12/21/16 17:15 84 12/21/16 17:05 97.8 F 78 22 136/63 98 12/21/16 12:35 98.4 F 72 20 124/60 99 - Physical Examination General: No Apparent Distress Cardiac: Positive: Reg Rate and Rhythm - Labs and Meds CBC 12/22/16 Range/Units 05:26 WBC 12.7 H (4.5-11.0) K/mm3 RBC 3.23 L (3.65-5.03) M/mm3 Hgb 8.6 L (10.1-14.3) gm/dl Hct 26.8 L (30.3-42.9) % Plt Count 198 (140-440) K/mm3 Lymph # 0.9 L (1.2-5.4) K/mm3 [place] # 1.1 H (0.0-0.8) K/mm3 Eos # 0.4 (0.0-0.4) K/mm3 Baso # 0.1 (0.0-0.1) K/mm3 - Imaging and Cardiology EKG: image reviewed
[2016-12-22] MEDS: PEPCID IV SCH ×2 (10:10→22:19)
--- NOTE | 2016-12-22 13:05 | Event Note ---
Date: 12/22/16 POD 3 s/p extended right hemicolectomy, VSS AF hemodyn stable WBC trending down , H and HCT OK, dressing dry, on chemical DVT prophylaxis, continue PT. waiting on recovery of bowel function.
--- NOTE | 2016-12-22 16:15 | Progress Note ---
Assessment and Plan Abdominal pain. - likely Secondary to colon cancer. Path report pending - s/p surgery on 12/20/[address] Patel. tolerated well - will cont iv fluid Acute hypoxic respiratory failure. Now resolved Atrial fibrillation. - She is rate controlled now, no anticoagulation considering bleeding risk Hypertension. - Pt now NPO - placed on as needed hydralazine Hyponatremia. - Now resolved with iv fluid Hypokalemia. replaced, K level normalized DVT prophylaxis. Cont on Lovenox Full code status. I discussed with patient and daughter at bedside. Subjective Date of service: 12/22/16 Principal diagnosis: N/V, abd pain Interval history: Patient seen and examined. Medical records and medication list reviewed. No acute event overnight noted by the RN. POD 2 s/p right hemicolectomy Patient denies any chest pain or difficulty breathing. Tolerating PT eval Discussed plan of care at bedside with patient, still nothing by mouth. Complains of dry mouth and abdominal pain but controlled with pain medication Family wants SNF placement WBC count trending down today Objective - Exam Narrative Exam: Gen appearance: Not in acute distress, obese HEENT: Normocephalic, atraumatic Neck: Supple, no JVD Lungs: Clear to auscultation bilaterally, no crackles, or wheezes. Heart: S1 and S2 regular, no murmurs, no gallops, rub Abdomen : surgical dressing placed on mid abdomen, hypoactive BS Extremities :No edema, no clubbing or cyanosis Neuro: Awake, alert,oriented, normal speech, no focal neurological signs Psych: normal mood. - Constitutional Vitals: Vital Signs - 12hr 12/22/16 12/22/16 12/22/16 06:05 07:50 10:09 Temperature 98.0 F 97.8 F Pulse Rate 68 70 70 Respiratory 18 20 Rate Blood Pressure 150/67 142/87 142/87 O2 Sat by Pulse 97 96 Oximetry 12/22/16 11:45 Temperature 98.5 F Pulse Rate 70 Respiratory 22 Rate Blood Pressure 157/69 O2 Sat by Pulse 98 Oximetry - Labs CBC & Chem 7: 12/22/16 05:26 12/21/16 07:25 Labs: Abnormal lab results 12/19/16 12/21/16 12/21/16 Range/Units 13:06 11:56 17:18 WBC (4.5-11.0) K/mm3 RBC (3.65-5.03) M/mm3 Hgb (10.1-14.3) gm/dl Hct (30.3-42.9) % MCH (28-32) pg Lymph % (Auto) (13.4-35.0) % [place] % (Auto) (0.0-7.3) % Lymph # (1.2-5.4) K/mm3 [place] # (0.0-0.8) K/mm3 Seg Neutrophils % (40.0-70.0) % Seg Neutrophils # (1.8-7.7) K/mm3 POC Glucose 119 H 154 H 136 H (70-105) 12/21/16 12/22/16 12/22/16 Range/Units 21:58 05:26 07:55 WBC 12.7 H (4.5-11.0) K/mm3 RBC 3.23 L (3.65-5.03) M/mm3 Hgb 8.6 L (10.1-14.3) gm/dl Hct 26.8 L (30.3-42.9) % MCH 27 L (28-32) pg Lymph % (Auto) 6.7 L (13.4-35.0) % [place] % (Auto) 9.0 H (0.0-7.3) % Lymph # 0.9 L (1.2-5.4) K/mm3 [place] # 1.1 H (0.0-0.8) K/mm3 Seg Neutrophils % 80.1 H (40.0-70.0) % Seg Neutrophils # 10.2 H (1.8-7.7) K/mm3 POC Glucose 129 H 135 H (70-105) 12/22/16 Range/Units 11:51 WBC (4.5-11.0) K/mm3 RBC (3.65-5.03) M/mm3 Hgb (10.1-14.3) gm/dl Hct (30.3-42.9) % MCH (28-32) pg Lymph % (Auto) (13.4-35.0) % [place] % (Auto) (0.0-7.3) % Lymph # (1.2-5.4) K/mm3 [place] # (0.0-0.8) K/mm3 Seg Neutrophils % (40.0-70.0) % Seg Neutrophils # (1.8-7.7) K/mm3 POC Glucose 136 H (70-105)
--- NOTE | 2016-12-22 19:02 | Consultation ---
History of Present Illness - Reason for Consult Consult date: 12/22/16 - History of Present Illness Patient seen/examined, resting in bed.NAD, case d/w her and the daughter. No new issues. path report still not ready. Past History Past Medical History: atrial fib, CAD, cancer, hypertension, other (Breast Cancer) Past Surgical History: hysterectomy, Other (polypectomy.and mastectomy) Social history: denies: smoking, alcohol abuse Family history: cancer, hypertension Medications and Allergies Allergies Allergy/AdvReac Type Severity Reaction Status Date / Time Penicillins Allergy Intermediate Rash Verified 12/20/16 13:35 adhesive Allergy Rash Verified 12/07/16 17:22 cyclobenzaprine Allergy Swelling Verified 12/07/16 17:22 acetaminophen [From Tylenol] AdvReac Unknown Verified 12/07/16 17:22 codeine AdvReac Nausea Verified 12/07/16 17:22 Home Medications Medication Instructions Recorded Confirmed Last Taken Type Carvedilol 12.5 mg PO BID 08/05/14 12/07/16 12/07/16 08:00 History Losartan Potassium 50 mg PO DAILY 08/05/14 12/07/16 12/07/16 08:00 History Pregabalin [Lyrica] 150 mg PO BID 08/05/14 12/07/16 12/07/16 08:00 History cycloSPORINE [Restasis 0.05%] 2 drop OU BID 08/05/14 12/07/16 12/06/16 21:00 History Triamter/Hctz 37.5-25 mg 0.5 tab PO QDAY 12/07/16 12/07/16 12/07/16 12:00 History [Maxzide-25] Active Meds: Active Medications Carvedilol (Coreg) 12.5 mg PO BID [facility] Last Admin: 12/22/16 10:09 Dose: 12.5 mg Enoxaparin Sodium (Lovenox) 40 mg SUB-Q QDAY@2200 [facility] Last Admin: 12/21/16 21:54 Dose: 40 mg Famotidine (Pepcid) 20 mg IV BID [facility] Last Admin: 12/22/16 10:10 Dose: 20 mg Hydralazine HCl (Apresoline) 5 mg IV Q30MIN PRN PRN Reason: Hypertension Dextrose/Sodium Chloride (D5ns) 1,000 mls @ 75 mls/hr IV DIRECT [facility] Last Admin: 12/22/16 06:15 Dose: 75 mls/hr Morphine Sulfate (Morphine) 2 mg IV Q4H PRN PRN Reason: Pain , Severe (7-10) Last Admin: 12/22/16 16:12 Dose: 2 mg Ondansetron HCl (Zofran) 4 mg IV Q8H PRN PRN Reason: N/V unrelieved by Reglan Potassium Chloride (K-Dur) 20 meq PO QDAY [facility] Last Admin: 12/22/16 10:09 Dose: 20 meq Review of Systems Constitutional: weakness Breasts: deferred Musculoskeletal: low back pain Exam - Constitutional Vitals: Temp Pulse Resp BP Pulse Ox 98.3 F 82 20 155/69 93 12/22/16 17:00 12/22/16 17:20 12/22/16 17:00 12/22/16 17:00 12/22/16 17:00 General appearance: Present: mild distress, well-nourished - EENT Eyes: Present: PERRL ENT: hearing intact, clear oral mucosa - Neck Neck: Present: supple, normal ROM - Respiratory Respiratory effort: normal Respiratory: bilateral: CTA - Cardiovascular Heart Sounds: Present: S1 & S2. Absent: rub, click - Extremities Extremities: pulses symmetrical, No edema Peripheral Pulses: within normal limits - Abdominal General gastrointestinal: Present: soft, non-tender, non-distended, normal bowel sounds Female genitourinary: Present: deferred - Rectal Rectal Exam: deferred - Integumentary Integumentary: Present: clear, warm, dry - Musculoskeletal Musculoskeletal: strength equal bilaterally, generalized weakness - Psychiatric Psychiatric: appropriate mood/affect, intact judgment & insight - Neurologic Neurologic: CNII-XII intact, moves all extremities Results - Labs CBC & Chem 7: 12/22/16 05:26 12/21/16 07:25 Labs: Abnormal lab results 12/19/16 12/21/16 12/22/16 Range/Units 13:06 21:58 05:26 WBC 12.7 H (4.5-11.0) K/mm3 RBC 3.23 L (3.65-5.03) M/mm3 Hgb 8.6 L (10.1-14.3) gm/dl Hct 26.8 L (30.3-42.9) % MCH 27 L (28-32) pg Lymph % (Auto) 6.7 L (13.4-35.0) % [place] % (Auto) 9.0 H (0.0-7.3) % Lymph # 0.9 L (1.2-5.4) K/mm3 [place] # 1.1 H (0.0-0.8) K/mm3 Seg Neutrophils % 80.1 H (40.0-70.0) % Seg Neutrophils # 10.2 H (1.8-7.7) K/mm3 POC Glucose 119 H 129 H (70-105) 12/22/16 12/22/16 12/22/16 Range/Units 07:55 11:51 17:00 WBC (4.5-11.0) K/mm3 RBC (3.65-5.03) M/mm3 Hgb (10.1-14.3) gm/dl Hct (30.3-42.9) % MCH (28-32) pg Lymph % (Auto) (13.4-35.0) % [place] % (Auto) (0.0-7.3) % Lymph # (1.2-5.4) K/mm3 [place] # (0.0-0.8) K/mm3 Seg Neutrophils % (40.0-70.0) % Seg Neutrophils # (1.8-7.7) K/mm3 POC Glucose 135 H 136 H 145 H (70-105) Assessment and Plan - Patient Problems (1) Abnormal loss of weight Current Visit: Yes Status: Acute Plan to address problem: very mild as per patient, less than 5% of her body mass. (2) Atrial fibrillation Current Visit: Yes Status: Acute Qualifiers: Atrial fibrillation type: A Plan to address problem: to be kept in mind with surgery. cardiology on the case. cleared for surgery, and proceeded. post op day #1 hemicolectomy. (3) Hyponatremia Current Visit: Yes Status: Acute Plan to address problem: hydration judiciously. (4) Colonic mass Current Visit: Yes Status: Acute Plan to address problem: Scheduled for resection tomorrow. See notes above. Supposedly set for surgery this afternoon. Differed until cardiology clearance, as per Gen surgery. s/p resection today. as above. This is POD#2, doing ok.
[2016-12-22] MEDS: ZOFRAN IV PRN (22:20)
[2016-12-22] MEDS: LOVENOX SUB-Q SCH (22:20)
[2016-12-23 06:14] LABS: Basophils % (Auto) 0.2 % (0.0-1.8); Eosinophils % (Auto) 3.4 % (0.0-4.3); Hematocrit 26.3 % (30.3-42.9); Hemoglobin 8.7 gm/dl (10.1-14.3); Mean Corpuscular HGB Conc 33 % (30-34); Mean Corpuscular Hemoglobin 27 pg (28-32); Mean Corpuscular Volume 81 fl (79-97); Platelet Count 297 K/mm3 (140-440); Red Blood Count 3.26 M/mm3 (3.65-5.03); Red Cell Distribution Width 14.7 % (13.2-15.2); White Blood Count 10.4 K/mm3 (4.5-11.0)
[2016-12-23 06:19] LABS: Anion Gap 12 mmol/L; Blood Urea Nitrogen 4 mg/dL (7-17); Calcium 8.4 mg/dL (8.4-10.2); Carbon Dioxide 30 mmol/L (22-30); Glucose 115 mg/dL (65-100); Potassium 3.5 mmol/L (3.6-5.0); Sodium 145 mmol/L (137-145)
--- NOTE | 2016-12-23 07:06 | Event Note ---
Date: 12/23/16 POD 4 s/p extended right hemicolectomy, quiet night, rested well, VSS AF no flatus or BM, dressing dry and intact, on chemical dvt prophylaxis, silverio still in , needs to be d/le, stop iv antibiotics at this point, H and HCT stable , WBC down, adv to clear liquids, mobilize, d/c silverio if possible, check path.
--- NOTE | 2016-12-23 09:14 | Progress Note ---
Assessment and Plan Nausea/weakness CTA chest - no PE or dissection Right colon mass s/p extended right hemicolectomy Hyponatremia Hypertension Afib, paroxysmal on lovenox Tele showed a long pauses noted while patient is straining on the toilet, likely vagally mediated coreg reduced to 12.5mg bid. No reoccurrence. Deconditioned [facility] 01/2015 showed a mild non-obstructive disease, EF 65-70%. Continue beta roni therapy for suppression of her paroxysmal afib. Subjective Date of service: 12/23/16 Principal diagnosis: N/V, abd pain Interval history: Patient is resting in bed comfortably. She complains of weakness. No reported cardiac events on telemetry overnight. Objective Vital Signs Temp Pulse Resp BP Pulse Ox 12/23/16 07:08 98.3 F 71 20 150/66 97 12/23/16 06:15 98.0 F 68 20 145/66 96 12/23/16 00:29 99.0 F 72 18 149/65 97 12/22/16 23:45 73 12/22/16 22:20 73 143/63 12/22/16 20:50 98.4 F 73 18 143/67 97 12/22/16 17:20 82 12/22/16 17:00 98.3 F 72 20 155/69 93 12/22/16 16:58 96 12/22/16 11:45 98.5 F 70 22 157/69 98 12/22/16 10:09 70 142/87 - Physical Examination General: No Apparent Distress HEENT: Positive: PERRL Neck: Positive: trachea midline Cardiac: Positive: Reg Rate and Rhythm Neuro: Positive: Weakness Extremities: Absent: edema - Labs and Meds CBC 12/23/16 Range/Units 05:32 WBC 10.4 (4.5-11.0) K/mm3 RBC 3.26 L (3.65-5.03) M/mm3 Hgb 8.7 L (10.1-14.3) gm/dl Hct 26.3 L (30.3-42.9) % Plt Count 297 (140-440) K/mm3 Lymph # 0.9 L (1.2-5.4) K/mm3 [place] # 1.2 H (0.0-0.8) K/mm3 Eos # 0.4 (0.0-0.4) K/mm3 Baso # 0.0 (0.0-0.1) K/mm3 Comprehensive Metabolic Panel 12/23/16 Range/Units 05:32 Sodium 145 (137-145) mmol/L Potassium 3.5 L (3.6-5.0) mmol/L Chloride 107.0 (98-107) mmol/L Carbon Dioxide 30 (22-30) mmol/L BUN 4 L (7-17) mg/dL Creatinine 0.4 L (0.7-1.2) mg/dL Glucose 115 H (65-100) mg/dL Calcium 8.4 (8.4-10.2) mg/dL - Imaging and Cardiology EKG: image reviewed
[2016-12-23] MEDS: PEPCID IV SCH ×2 (09:28→21:53)
[2016-12-23] MEDS: K-DUR PO SCH (09:28)
[2016-12-23] MEDS: NORCO 5/325 PO PRN ×3 (09:28→21:55)
[2016-12-23] MEDS: COREG PO SCH ×2 (09:29→21:53)
--- NOTE | 2016-12-23 16:34 | Progress Note ---
Assessment and Plan Abdominal pain. - likely Secondary to colon cancer. Path report pending - s/p surgery on 12/20/[address] Patel. tolerated well - will cont iv fluid, placed on clear liquid today Acute hypoxic respiratory failure. Now resolved Atrial fibrillation. - She is rate controlled now, no anticoagulation considering bleeding risk Hypertension. - Pt now NPO - placed on as needed hydralazine Hyponatremia. - Now resolved with iv fluid Hypokalemia. replaced, cont to monitor BMP DVT prophylaxis. Cont on Lovenox Full code status. I discussed with patient and daughter at bedside. Subjective Date of service: 12/23/16 Principal diagnosis: N/V, abd pain Interval history: Patient seen and examined. Medical records and medication list reviewed. No acute event overnight noted by the RN. Patient denies any chest pain or difficulty breathing. Tolerating PT eval Discussed plan of care at bedside with patient, still no BM, no flatus. started on clear liquid diet today Objective - Exam Narrative Exam: Gen appearance: Not in acute distress, obese HEENT: Normocephalic, atraumatic Neck: Supple, no JVD Lungs: Clear to auscultation bilaterally, no crackles, or wheezes. Heart: S1 and S2 regular, no murmurs, no gallops, rub Abdomen : surgical dressing placed on mid abdomen, + BS Extremities :No edema, no clubbing or cyanosis Neuro: Awake, alert,oriented, normal speech, no focal neurological signs Psych: normal mood. - Constitutional Vitals: Vital Signs - 12hr 12/23/16 12/23/16 12/23/16 06:15 07:08 09:28 Temperature 98.0 F 98.3 F Pulse Rate 68 71 Respiratory 20 20 20 Rate Respiratory Rate [Anterior Lateral Abdomen ] Respiratory Rate [Bilateral Lower Back] Blood Pressure 145/66 150/66 O2 Sat by Pulse 96 97 Oximetry 12/23/16 12/23/16 12/23/16 09:29 10:00 13:05 Temperature 97.6 F Pulse Rate 76 80 65 Respiratory 18 Rate Respiratory 20 Rate [Anterior Lateral Abdomen ] Respiratory 20 Rate [Bilateral Lower Back] Blood Pressure 148/66 155/66 O2 Sat by Pulse 98 Oximetry - Labs CBC & Chem 7: 12/23/16 05:32 12/23/16 05:32 Labs: Abnormal lab results 08/02/2812/22/16 12/23/16 Range/Units 17:00 21:28 05:32 RBC 3.26 L (3.65-5.03) M/mm3 Hgb 8.7 L (10.1-14.3) gm/dl Hct 26.3 L (30.3-42.9) % MCH 27 L (28-32) pg Lymph % (Auto) 9.0 L (13.4-35.0) % [place] % (Auto) 11.3 H (0.0-7.3) % Lymph # 0.9 L (1.2-5.4) K/mm3 [place] # 1.2 H (0.0-0.8) K/mm3 Seg Neutrophils % 76.1 H (40.0-70.0) % Seg Neutrophils # 7.9 H (1.8-7.7) K/mm3 Potassium (3.6-5.0) mmol/L BUN (7-17) mg/dL Creatinine (0.7-1.2) mg/dL Glucose (65-100) mg/dL POC Glucose 145 H 129 H (70-105) 12/23/16 Range/Units 05:32 RBC (3.65-5.03) M/mm3 Hgb (10.1-14.3) gm/dl Hct (30.3-42.9) % MCH (28-32) pg Lymph % (Auto) (13.4-35.0) % [place] % (Auto) (0.0-7.3) % Lymph # (1.2-5.4) K/mm3 [place] # (0.0-0.8) K/mm3 Seg Neutrophils % (40.0-70.0) % Seg Neutrophils # (1.8-7.7) K/mm3 Potassium 3.5 L (3.6-5.0) mmol/L BUN 4 L (7-17) mg/dL Creatinine 0.4 L (0.7-1.2) mg/dL Glucose 115 H (65-100) mg/dL POC Glucose (70-105)
[2016-12-23] MEDS: ZOFRAN IV PRN ×2 (18:57→21:53)
--- NOTE | 2016-12-23 21:24 | Consultation ---
History of Present Illness - Reason for Consult Consult date: 12/23/16 - History of Present Illness Patient seen/examined, labs reviewed, case d/w patient. C/o frustrated about not feeling well.Not tolerating po intake, and back on TPN. Past History Past Medical History: atrial fib, CAD, cancer, hypertension, other (Breast Cancer) Past Surgical History: hysterectomy, Other (polypectomy.and mastectomy) Social history: denies: smoking, alcohol abuse Family history: cancer, hypertension Medications and Allergies Allergies Allergy/AdvReac Type Severity Reaction Status Date / Time Penicillins Allergy Intermediate Rash Verified 12/20/16 13:35 adhesive Allergy Rash Verified 12/07/16 17:22 cyclobenzaprine Allergy Swelling Verified 12/07/16 17:22 acetaminophen [From Tylenol] AdvReac Unknown Verified 12/07/16 17:22 codeine AdvReac Nausea Verified 12/07/16 17:22 Home Medications Medication Instructions Recorded Confirmed Last Taken Type Carvedilol 12.5 mg PO BID 08/05/14 12/07/16 12/07/16 08:00 History Losartan Potassium 50 mg PO DAILY 08/05/14 12/07/16 12/07/16 08:00 History Pregabalin [Lyrica] 150 mg PO BID 08/05/14 12/07/16 12/07/16 08:00 History cycloSPORINE [Restasis 0.05%] 2 drop OU BID 08/05/14 12/07/16 12/06/16 21:00 History Triamter/Hctz 37.5-25 mg 0.5 tab PO QDAY 12/07/16 12/07/16 12/07/16 12:00 History [Maxzide-25] Active Meds: Active Medications Acetaminophen/Hydrocodone Bitart ([place] 5/325) 1 each PO Q4H PRN PRN Reason: Pain, Moderate (4-6) Last Admin: 12/23/16 17:26 Dose: 1 each Carvedilol (Coreg) 12.5 mg PO BID [facility] [place] Last Admin: 12/23/16 09:29 Dose: 12.5 mg Enoxaparin Sodium (Lovenox) 40 mg SUB-Q QDAY@2200 [facility] Last Admin: 12/22/16 22:20 Dose: 40 mg Famotidine (Pepcid) 20 mg IV BID [facility] Last Admin: 12/23/16 09:28 Dose: 20 mg Hydralazine HCl (Apresoline) 5 mg IV Q30MIN PRN PRN Reason: Hypertension Morphine Sulfate (Morphine) 2 mg IV Q4H PRN PRN Reason: Pain , Severe (7-10) Last Admin: 12/22/16 22:20 Dose: 2 mg Ondansetron HCl (Zofran) 4 mg IV Q8H PRN PRN Reason: N/V unrelieved by Reglan Last Admin: 12/23/16 18:57 Dose: 4 mg Potassium Chloride (K-Dur) 20 meq PO QDAY [facility] [place] Last Admin: 12/23/16 09:28 Dose: 20 meq Review of Systems Constitutional: fatigue, chronic pain Breasts: deferred Exam - Constitutional Vitals: Temp Pulse Resp BP Pulse Ox 98.5 F 76 18 150/74 97 12/23/16 19:52 12/23/16 19:52 12/23/16 19:52 12/23/16 19:52 12/23/16 19:52 General appearance: Present: no acute distress, well-nourished - EENT Eyes: Present: PERRL ENT: hearing intact, clear oral mucosa - Neck Neck: Present: supple, normal ROM - Respiratory Respiratory effort: normal Respiratory: bilateral: CTA - Cardiovascular Heart Sounds: Present: S1 & S2. Absent: rub, click - Extremities Extremities: pulses symmetrical, No edema Peripheral Pulses: within normal limits - Abdominal General gastrointestinal: Present: soft, non-tender, non-distended, normal bowel sounds Localized gastrointestinal: surgical scar: midline (tender.) Female genitourinary: Present: deferred - Rectal Rectal Exam: deferred - Integumentary Integumentary: Present: clear, warm, dry - Musculoskeletal Musculoskeletal: gait normal, strength equal bilaterally - Psychiatric Psychiatric: appropriate mood/affect, intact judgment & insight - Neurologic Neurologic: CNII-XII intact, moves all extremities Results - Labs CBC & Chem 7: 12/23/16 05:32 12/23/16 05:32 Labs: Abnormal lab results 12/22/16 12/23/16 12/23/16 Range/Units 21:28 05:32 05:32 RBC 3.26 L (3.65-5.03) M/mm3 Hgb 8.7 L (10.1-14.3) gm/dl Hct 26.3 L (30.3-42.9) % MCH 27 L (28-32) pg Lymph % (Auto) 9.0 L (13.4-35.0) % [place] % (Auto) 11.3 H (0.0-7.3) % Lymph # 0.9 L (1.2-5.4) K/mm3 [place] # 1.2 H (0.0-0.8) K/mm3 Seg Neutrophils % 76.1 H (40.0-70.0) % Seg Neutrophils # 7.9 H (1.8-7.7) K/mm3 Potassium 3.5 L (3.6-5.0) mmol/L BUN 4 L (7-17) mg/dL Creatinine 0.4 L (0.7-1.2) mg/dL Glucose 115 H (65-100) mg/dL POC Glucose 129 H (70-105) Assessment and Plan - Patient Problems (1) Abnormal loss of weight Current Visit: Yes Status: Acute Plan to address problem: very mild as per patient, less than 5% of her body mass. (2) Atrial fibrillation Current Visit: Yes Status: Acute Qualifiers: Atrial fibrillation type: A Plan to address problem: to be kept in mind with surgery. cardiology on the case. cleared for surgery, and proceeded. post op day #1 herman colectomy. (3) Hyponatremia Current Visit: Yes Status: Acute Plan to address problem: hydration judiciously. (4) Colonic mass Current Visit: Yes Status: Acute Plan to address problem: Scheduled for resection tomorrow. See notes above. Supposedly set for surgery this afternoon. Differed until cardiology clearance, as per Gen surgery. s/p resection today. as above. This is POD#2, doing ok.
[2016-12-23] MEDS: LOVENOX SUB-Q SCH (21:53)
[2016-12-24] MEDS: ZOFRAN IV PRN ×2 (02:04→14:33)
[2016-12-24] MEDS: MORPHINE IV PRN ×2 (02:11→17:02)
--- NOTE | 2016-12-24 09:11 | Event Note ---
Date: 12/24/16 POD 5 VSS AF complains of nausea, no labs today, abd non distended, dressing dry and intact, complains of nausea, go easy on adv diet until patient recovers bowel funciton, hypoactive bs, no flatus or BM, slow progress. will order KUB.
[2016-12-24] MEDS: PEPCID IV SCH (09:17)
[2016-12-24] MEDS: K-DUR PO SCH (09:17)
[2016-12-24] MEDS: COREG PO SCH ×2 (09:18→22:53)
[2016-12-24] MEDS: NORCO 5/325 PO PRN (09:23)
--- NOTE | 2016-12-24 10:17 | XRay Report ---
Abdomen: Findings: Moderate amount of air in small and large bowel. No radiopaque calculus or abnormal calcification. Impression: Probable ileus. Less likely early incomplete small bowel obstruction.
--- NOTE | 2016-12-24 12:53 | Progress Note ---
Assessment and Plan Abdominal pain. - likely Secondary to colon cancer. Path report pending - s/p surgery on 12/20/[address] Patel. tolerated well - will cont iv fluid, placed on clear liquid today but not tolerating - follow kub Acute hypoxic respiratory failure. Now resolved Atrial fibrillation. - She is rate controlled now, no anticoagulation considering bleeding risk - will restart when clears by GS Hypertension. - placed on as needed hydralazine Hyponatremia. - Now resolved with iv fluid Hypokalemia. replacing with iv fluid, cont to monitor BMP DVT prophylaxis. Cont on Lovenox Full code status. I discussed with patient and daughter at bedside. Subjective Date of service: 12/24/16 Principal diagnosis: N/V, abd pain Interval history: Patient seen and examined. Medical records and medication list reviewed. No acute event overnight noted by the RN. Patient denies any chest pain or difficulty breathing. Tolerating PT eval Discussed plan of care at bedside with patient, still no BM, no flatus. c/o nausea, not tolerating clear liquid today KUB ordered, order BMP Objective - Exam Narrative Exam: Gen appearance: Not in acute distress, obese HEENT: Normocephalic, atraumatic Neck: Supple, no JVD Lungs: Clear to auscultation bilaterally, no crackles, or wheezes. Heart: S1 and S2 regular, no murmurs, no gallops, rub Abdomen : surgical dressing placed on mid abdomen, + BS Extremities :No edema, no clubbing or cyanosis Neuro: Awake, alert,oriented, normal speech, no focal neurological signs Psych: normal mood. - Constitutional Vitals: Vital Signs - 12hr 12/24/16 12/24/16 12/24/16 04:00 09:18 09:23 Temperature 98.2 F Pulse Rate 83 72 Respiratory 18 20 Rate Respiratory Rate [Abdomen] Respiratory Rate [Anterior Lateral Abdomen ] Respiratory Rate [Bilateral Lower Back] Respiratory Rate [Right Chest] Blood Pressure 143/66 146/66 O2 Sat by Pulse 97 Oximetry 12/24/16 12/24/16 12/24/16 10:00 10:09 10:23 Temperature 98.4 F Pulse Rate 78 72 Respiratory 20 20 Rate Respiratory 18 Rate [Abdomen] Respiratory 18 Rate [Anterior Lateral Abdomen ] Respiratory 18 Rate [Bilateral Lower Back] Respiratory 18 Rate [Right Chest] Blood Pressure 146/67 O2 Sat by Pulse 96 Oximetry - Labs CBC & Chem 7: 12/23/16 05:32 12/23/16 05:32 Labs: Abnormal lab results 12/23/16 12/23/16 Range/Units 07:49 17:54 POC Glucose 139 H 108 H (70-105)
--- NOTE | 2016-12-24 12:58 | Event Note ---
Date: 12/24/16 Noted KUB result, pt has possible ilius and SBO. will stop clear liquid diet and keep NPO. will notify GS
--- NOTE | 2016-12-24 13:08 | Progress Note ---
Assessment and Plan Right colon mass s/p right hemicolectomy Hyponatremia Hypertension Afib, paroxysmal NSR currently Tele showed a long pauses noted while patient is straining on the toilet, likely vagally mediated coreg reduced to 12.5mg bid. No reoccurrence. Deconditioned [facility] 01/2015 showed a mild non-obstructive disease, EF 65-70%. Recommend: Continue beta roni at current dose Start eliquis once surgically appropriate. Subjective Date of service: 12/24/16 Principal diagnosis: N/V, abd pain Interval history: No cardiac complaints. Continues to have abdominal discomfort Objective Vital Signs Temp Pulse Resp Resp Resp Resp Resp 12/24/16 10:23 20 12/24/16 10:09 98.4 F 72 20 12/24/16 10:00 78 18 18 18 18 12/24/16 09:23 20 12/24/16 09:18 72 12/24/16 04:00 98.2 F 83 18 12/24/16 00:07 76 20 20 12/24/16 00:00 98.4 F 77 18 12/23/16 21:55 20 12/23/16 21:53 76 12/23/16 19:52 98.5 F 76 18 12/23/16 17:26 20 12/23/16 16:30 98.9 F 71 20 BP Pulse Ox 12/24/16 10:23 12/24/16 10:09 146/67 96 12/24/16 10:00 12/24/16 09:23 12/24/16 09:18 146/66 12/24/16 04:00 143/66 97 12/24/16 00:07 12/24/16 00:00 194/84 94 12/23/16 21:55 12/23/16 21:53 150/74 12/23/16 19:52 150/74 97 12/23/16 17:26 12/23/16 16:30 165/72 95 - Physical Examination General: No Apparent Distress HEENT: Positive: PERRL Neck: Positive: trachea midline Cardiac: Positive: Reg Rate and Rhythm. Negative: Audible Murmur Lungs: Positive: clear to auscultation Abdomen: Positive: Soft Skin: Positive: Clear Extremities: Absent: edema - Imaging and Cardiology EKG: image reviewed
--- NOTE | 2016-12-24 13:22 | Event Note ---
Date: 12/24/16 KUB is more consistent with illeus, will allow ice chips, mobilize, limit iv narcotics, I do not think patient has bowel obstruction.
--- NOTE | 2016-12-24 13:27 | Event Note ---
Date: 12/24/16 Will consult Nutrition to implement TPN until patient recovers bowel funtion, decrease iv narcotics, mobilize, decrease iv fluids once TPN starts.
[2016-12-24] MEDS: D5W/0.45% NACL/KCL 30 MEQ 30 MEQ/1,000 ML BAG IV SCH (14:45)
--- NOTE | 2016-12-24 22:25 | Consultation ---
History of Present Illness - Reason for Consult Consult date: 12/24/16 - History of Present Illness patient seen/examined, labs reviewed, case d?w patient/ daughter at the bed side. No new issues at this time , except she had N/V today, ? ilius. Scheduled for TPN until bowel function recovers. Past History Past Medical History: atrial fib, CAD, cancer, hypertension, other (Breast Cancer) Past Surgical History: hysterectomy, Other (polypectomy.and mastectomy) Social history: denies: smoking, alcohol abuse Family history: cancer, hypertension Medications and Allergies Allergies Allergy/AdvReac Type Severity Reaction Status Date / Time Penicillins Allergy Intermediate Rash Verified 12/20/16 13:35 adhesive Allergy Rash Verified 12/07/16 17:22 cyclobenzaprine Allergy Swelling Verified 12/07/16 17:22 acetaminophen [From Tylenol] AdvReac Unknown Verified 12/07/16 17:22 codeine AdvReac Nausea Verified 12/07/16 17:22 Home Medications Medication Instructions Recorded Confirmed Last Taken Type Carvedilol 12.5 mg PO BID 08/05/14 12/07/16 12/07/16 08:00 History Losartan Potassium 50 mg PO DAILY 08/05/14 12/07/16 12/07/16 08:00 History Pregabalin [Lyrica] 150 mg PO BID 08/05/14 12/07/16 12/07/16 08:00 History cycloSPORINE [Restasis 0.05%] 2 drop OU BID 08/05/14 12/07/16 12/06/16 21:00 History Triamter/Hctz 37.5-25 mg 0.5 tab PO QDAY 12/07/16 12/07/16 12/07/16 12:00 History [Maxzide-25] Active Meds: Active Medications Acetaminophen/Hydrocodone Bitart ([place] 5/325) 1 each PO Q4H PRN PRN Reason: Pain, Moderate (4-6) Last Admin: 12/24/16 09:23 Dose: 1 each Carvedilol (Coreg) 12.5 mg PO BID [facility] Last Admin: 12/24/16 09:18 Dose: 12.5 mg Enoxaparin Sodium (Lovenox) 40 mg SUB-Q QDAY@2200 [facility] Last Admin: 12/23/16 21:53 Dose: 40 mg Famotidine (Pepcid) 20 mg PO BID [facility] Hydralazine HCl (Apresoline) 5 mg IV Q30MIN PRN PRN Reason: Hypertension Last Admin: 12/24/16 14:34 Dose: 5 mg Potassium Chloride/Dextrose/Sod Cl (D5w/0.45% Nacl/Kcl 30 Meq) 30 meq in 1,000 mls @ 75 mls/hr IV DIRECT [facility] Last Admin: 12/24/16 14:45 Dose: 75 mls/hr Morphine Sulfate (Morphine) 1 mg IV Q6H PRN PRN Reason: Pain , Severe (7-10) Last Admin: 12/24/16 17:02 Dose: 1 mg Ondansetron HCl (Zofran) 4 mg IV Q8H PRN PRN Reason: N/V unrelieved by Reglan Last Admin: 12/24/16 14:33 Dose: 4 mg Potassium Chloride (K-Dur) 20 meq PO QDAY [facility] Last Admin: 12/24/16 09:17 Dose: 20 meq Review of Systems Breasts: deferred Gastrointestinal: nausea, vomiting Exam - Constitutional Vitals: Temp Pulse Resp BP Pulse Ox 98.7 F 76 18 193/84 98 12/24/16 21:24 12/24/16 21:24 12/24/16 21:24 12/24/16 21:24 12/24/16 21:24 General appearance: Present: no acute distress, well-nourished - EENT Eyes: Present: PERRL ENT: hearing intact, clear oral mucosa - Neck Neck: Present: supple, normal ROM - Respiratory Respiratory effort: normal Respiratory: bilateral: CTA - Cardiovascular Heart Sounds: Present: S1 & S2. Absent: rub, click - Extremities Extremities: pulses symmetrical, No edema Peripheral Pulses: within normal limits - Abdominal General gastrointestinal: Present: soft, non-tender, non-distended, normal bowel sounds Female genitourinary: Present: deferred - Rectal Rectal Exam: deferred - Integumentary Integumentary: Present: clear, warm, dry - Musculoskeletal Musculoskeletal: gait normal, strength equal bilaterally - Psychiatric Psychiatric: appropriate mood/affect, intact judgment & insight - Neurologic Neurologic: CNII-XII intact, moves all extremities Results - Labs CBC & Chem 7: 12/23/16 05:32 12/23/16 05:32 Labs: Abnormal lab results 12/24/16 12/24/16 Range/Units 16:45 21:52 POC Glucose 112 H 127 H (70-105) Assessment and Plan - Patient Problems (1) Abnormal loss of weight Current Visit: Yes Status: Acute Plan to address problem: very mild as per patient, less than 5% of her body mass. (2) Atrial fibrillation Current Visit: Yes Status: Acute Qualifiers: Atrial fibrillation type: A Plan to address problem: to be kept in mind with surgery. cardiology on the case. cleared for surgery, and proceeded. post op day #1 herman colectomy. (3) Hyponatremia Current Visit: Yes Status: Acute Plan to address problem: hydration judiciously. (4) Colonic mass Current Visit: Yes Status: Acute Plan to address problem: Scheduled for resection tomorrow. See notes above. Supposedly set for surgery this afternoon. Differed until cardiology clearance, as per Gen surgery. s/p resection today. as above. This is POD#2, doing ok.
[2016-12-24] MEDS: PEPCID PO SCH (22:53)
[2016-12-24] MEDS: LOVENOX SUB-Q SCH (22:54)
[2016-12-25] MEDS: MORPHINE IV PRN ×2 (04:16→20:53)
[2016-12-25 09:37] LABS: Basophils % (Auto) 0.3 % (0.0-1.8); Eosinophils % (Auto) 2.9 % (0.0-4.3); Hematocrit 30.8 % (30.3-42.9); Hemoglobin 9.7 gm/dl (10.1-14.3); Mean Corpuscular HGB Conc 32 % (30-34); Mean Corpuscular Volume 81 fl (79-97); Platelet Count 366 K/mm3 (140-440); Red Cell Distribution Width 14.8 % (13.2-15.2); White Blood Count 15.3 K/mm3 (4.5-11.0)
--- NOTE | 2016-12-25 09:41 | Event Note ---
Date: 12/25/16 POD 6 VSS AF, labs pending, on DVT prophylaxis, rate controlled, hopefully TPN to start today, limited narcotics. wait on recovery of bowel function until advancing diet.
[2016-12-25 09:44] LABS: Mean Corpuscular Hemoglobin 26 pg (28-32)
[2016-12-25 09:50] LABS: Anion Gap 11 mmol/L; Blood Urea Nitrogen 6 mg/dL (7-17); Calcium 9.1 mg/dL (8.4-10.2); Carbon Dioxide 33 mmol/L (22-30); Chloride 100.8 mmol/L (98-107); Glucose 96 mg/dL (65-100); Potassium 3.7 mmol/L (3.6-5.0); Sodium 141 mmol/L (137-145)
[2016-12-25] MEDS: K-DUR PO SCH (10:00)
[2016-12-25] MEDS: COREG PO SCH (10:00)
[2016-12-25] MEDS: PEPCID PO SCH ×2 (10:00→22:13)
--- NOTE | 2016-12-25 10:01 | Progress Note ---
Assessment and Plan Right colon mass s/p right hemicolectomy Hyponatremia Hypertension Afib, paroxysmal NSR currently Vagally mediated asymptomatic ventricular pauses. Deconditioned [facility] 01/2015 showed a mild non-obstructive disease, EF 65-70%. Recommend: Continue current therapy - plan for TPN noted. Start eliquis once surgically appropriate. Subjective Date of service: 12/25/16 Principal diagnosis: N/V, abd pain Interval history: Pt had recurrent episode of paroxysmal atrial fibrillation yesterday as well as ventricular pauses up to 3 seconds in the setting of vomiting. Now back in NSR Objective Vital Signs Temp Pulse Pulse Resp Resp Resp Resp 12/25/16 08:00 97.7 F 76 18 12/25/16 05:52 98.6 F 75 18 12/25/16 04:46 18 12/25/16 04:16 20 12/25/16 00:38 98.4 F 75 18 12/24/16 22:53 76 12/24/16 22:00 75 18 12/24/16 21:24 98.7 F 76 18 12/24/16 21:06 17 12/24/16 19:47 83 12/24/16 17:00 98.4 F 80 22 12/24/16 14:34 12/24/16 12:00 98.4 F 76 20 12/24/16 10:23 20 12/24/16 10:09 98.4 F 72 20 12/24/16 10:00 78 18 18 18 Resp BP Pulse Ox 12/25/16 08:00 175/75 98 12/25/16 05:52 159/72 98 12/25/16 04:46 12/25/16 04:16 12/25/16 00:38 183/80 97 12/24/16 22:53 193/84 12/24/16 22:00 12/24/16 21:24 193/84 98 12/24/16 21:06 12/24/16 19:47 12/24/16 17:00 142/67 96 12/24/16 14:34 186/96 12/24/16 12:00 180/86 96 12/24/16 10:23 12/24/16 10:09 146/67 96 12/24/16 10:00 18 - Physical Examination General: No Apparent Distress HEENT: Positive: PERRL Neck: Positive: trachea midline Cardiac: Positive: Reg Rate and Rhythm Lungs: Positive: clear to auscultation Neuro: Positive: Weakness Abdomen: Positive: Soft Skin: Positive: Clear Extremities: Absent: edema - Labs and Meds CBC 12/25/16 Range/Units 08:32 WBC 15.3 H (4.5-11.0) K/mm3 RBC 3.80 (3.65-5.03) M/mm3 Hgb 9.7 L (10.1-14.3) gm/dl Hct 30.8 (30.3-42.9) % Plt Count 366 (140-440) K/mm3 Lymph # 1.1 L (1.2-5.4) K/mm3 [place] # 1.5 H (0.0-0.8) K/mm3 Eos # 0.4 (0.0-0.4) K/mm3 Baso # 0.0 (0.0-0.1) K/mm3 Comprehensive Metabolic Panel 12/25/16 Range/Units 08:32 Sodium 141 (137-145) mmol/L Potassium 3.7 (3.6-5.0) mmol/L Chloride 100.8 (98-107) mmol/L Carbon Dioxide 33 H (22-30) mmol/L BUN 6 L (7-17) mg/dL Creatinine 0.4 L (0.7-1.2) mg/dL Glucose 96 (65-100) mg/dL Calcium 9.1 (8.4-10.2) mg/dL - Imaging and Cardiology EKG: image reviewed
[2016-12-25] MEDS: D5W/0.45% NACL/KCL 30 MEQ 30 MEQ/1,000 ML BAG IV SCH (10:55)
[2016-12-25] MEDS: ZOFRAN IV PRN ×2 (10:55→20:54)
--- NOTE | 2016-12-25 13:35 | Progress Note ---
Assessment and Plan Abdominal pain. - likely Secondary to colon cancer. Path report pending - s/p surgery on 12/20/[address] Patel. Possible SBO - not tolerating any diet - kub showed possible SBO - TPN will be start at 8pm Acute hypoxic respiratory failure. Now resolved Atrial fibrillation. - She is rate controlled now, no anticoagulation considering bleeding risk - will restart when clears by GS Hypertension. - placed on as needed hydralazine and scheduled metoprolol iv Hyponatremia. - Now resolved with iv fluid Hypokalemia. replacing with iv fluid, cont to monitor BMP DVT prophylaxis. Cont on Lovenox Full code status. I discussed with patient and daughter at bedside. Subjective Date of service: 12/25/16 Principal diagnosis: N/V, abd pain Interval history: Patient seen and examined. Medical records and medication list reviewed. still no BM, no flatus. c/o nausea, KUB showed possible SBO and paralytic ilius Objective - Exam Narrative Exam: Gen appearance: Not in acute distress, obese HEENT: Normocephalic, atraumatic Neck: Supple, no JVD Lungs: Clear to auscultation bilaterally, no crackles, or wheezes. Heart: S1 and S2 regular, no murmurs, no gallops, rub Abdomen : surgical dressing placed on mid abdomen, hypoactive BS Extremities :No edema, no clubbing or cyanosis Neuro: Awake, alert,oriented, normal speech, no focal neurological signs Psych: normal mood. - Constitutional Vitals: Vital Signs - 12hr 12/25/16 12/25/16 12/25/16 04:16 04:46 05:52 Temperature 98.6 F Pulse Rate 75 Respiratory 20 18 18 Rate Blood Pressure 159/72 O2 Sat by Pulse 98 Oximetry 12/25/16 08:00 Temperature 97.7 F Pulse Rate 76 Respiratory 18 Rate Blood Pressure 175/75 O2 Sat by Pulse 98 Oximetry - Labs CBC & Chem 7: 12/25/16 08:32 12/25/16 08:32 Labs: Abnormal lab results 12/24/16 12/24/16 12/25/16 Range/Units 16:45 21:52 08:32 WBC 15.3 H (4.5-11.0) K/mm3 Hgb 9.7 L (10.1-14.3) gm/dl MCH 26 L (28-32) pg Lymph % (Auto) 7.0 L (13.4-35.0) % [place] % (Auto) 9.7 H (0.0-7.3) % Lymph # 1.1 L (1.2-5.4) K/mm3 [place] # 1.5 H (0.0-0.8) K/mm3 Seg Neutrophils % 80.1 H (40.0-70.0) % Seg Neutrophils # 12.3 H (1.8-7.7) K/mm3 Carbon Dioxide (22-30) mmol/L BUN (7-17) mg/dL Creatinine (0.7-1.2) mg/dL POC Glucose 112 H 127 H (70-105) Magnesium (1.7-2.3) mg/dL // Range/Units 08:32 WBC (4.5-11.0) K/mm3 Hgb (10.1-14.3) gm/dl MCH (28-32) pg Lymph % (Auto) (13.4-35.0) % [place] % (Auto) (0.0-7.3) % Lymph # (1.2-5.4) K/mm3 [place] # (0.0-0.8) K/mm3 Seg Neutrophils % (40.0-70.0) % Seg Neutrophils # (1.8-7.7) K/mm3 Carbon Dioxide 33 H (22-30) mmol/L BUN 6 L (7-17) mg/dL Creatinine 0.4 L (0.7-1.2) mg/dL POC Glucose (70-105) Magnesium 1.60 L (1.7-2.3) mg/dL
--- NOTE | 2016-12-25 16:56 | Consultation ---
History of Present Illness - Reason for Consult Consult date: 12/25/16 - History of Present Illness patient seen/examined, labs /notes reviewed, case d/w patient and daughter at the bed side. she will be starting TPN at 8pm today.She continues with physical therapy. Past History Past Medical History: atrial fib, CAD, cancer, hypertension, other (Breast Cancer) Past Surgical History: hysterectomy, Other (polypectomy.and mastectomy) Social history: denies: smoking, alcohol abuse Family history: cancer, hypertension Medications and Allergies Allergies Allergy/AdvReac Type Severity Reaction Status Date / Time Penicillins Allergy Intermediate Rash Verified 12/20/16 13:35 adhesive Allergy Rash Verified 12/07/16 17:22 cyclobenzaprine Allergy Swelling Verified 12/07/16 17:22 acetaminophen [From Tylenol] AdvReac Unknown Verified 12/07/16 17:22 codeine AdvReac Nausea Verified 12/07/16 17:22 Home Medications Medication Instructions Recorded Confirmed Last Taken Type Carvedilol 12.5 mg PO BID 08/05/14 12/07/16 12/07/16 08:00 History Losartan Potassium 50 mg PO DAILY 08/05/14 12/07/16 12/07/16 08:00 History Pregabalin [Lyrica] 150 mg PO BID 08/05/14 12/07/16 12/07/16 08:00 History cycloSPORINE [Restasis 0.05%] 2 drop OU BID 08/05/14 12/07/16 12/06/16 21:00 History Triamter/Hctz 37.5-25 mg 0.5 tab PO QDAY 12/07/16 12/07/16 12/07/16 12:00 History [Maxzide-25] Active Meds: Active Medications Acetaminophen/Hydrocodone Bitart ([place] 5/325) 1 each PO Q4H PRN PRN Reason: Pain, Moderate (4-6) Last Admin: 12/24/16 09:23 Dose: 1 each Enoxaparin Sodium (Lovenox) 40 mg SUB-Q QDAY@2200 [facility] Last Admin: 12/24/16 22:54 Dose: 40 mg Famotidine (Pepcid) 20 mg PO BID [facility] Last Admin: 12/24/16 22:53 Dose: 20 mg Hydralazine HCl (Apresoline) 5 mg IV Q30MIN PRN PRN Reason: Hypertension Last Admin: 12/24/16 14:34 Dose: 5 mg Potassium Chloride/Dextrose/Sod Cl (D5w/0.45% Nacl/Kcl 30 Meq) 30 meq in 1,000 mls @ 75 mls/hr IV DIRECT [facility] Stop: 12/25/16 21:00 Last Admin: 12/25/16 10:55 Dose: 75 mls/hr Amino Acids/Electrolytes/Dextrose (Tpn Adult) 2,016 mls @ 84 mls/hr IV DAILY@ 2000 [facility] PRN Reason: Protocol Stop: 12/26/16 19:59 Levofloxacin/Dextrose (Levaquin 750mg/150ml) 750 mg in 150 mls @ 100 mls/hr IV Q24HR [facility] PRN Reason: Protocol Metoprolol Tartrate (Lopressor) 5 mg IV Q6HR [facility] Morphine Sulfate (Morphine) 1 mg IV Q6H PRN PRN Reason: Pain , Severe (7-10) Last Admin: 12/25/16 04:16 Dose: 1 mg Ondansetron HCl (Zofran) 4 mg IV Q8H PRN PRN Reason: N/V unrelieved by Reglan Last Admin: 12/25/16 10:55 Dose: 4 mg Potassium Chloride (K-Dur) 20 meq PO QDAY [facility] Last Admin: 12/24/16 09:17 Dose: 20 meq Review of Systems Breasts: deferred Exam - Constitutional Vitals: Temp Pulse Resp BP Pulse Ox 97.7 F 76 18 175/75 98 12/25/16 08:00 12/25/16 08:00 12/25/16 08:00 12/25/16 08:00 12/25/16 08:00 General appearance: Present: no acute distress, well-nourished - EENT Eyes: Present: PERRL ENT: hearing intact, clear oral mucosa - Neck Neck: Present: supple, normal ROM - Respiratory Respiratory effort: normal Respiratory: bilateral: CTA - Cardiovascular Heart Sounds: Present: S1 & S2. Absent: rub, click - Extremities Extremities: pulses symmetrical, No edema Peripheral Pulses: within normal limits - Abdominal General gastrointestinal: Present: soft, non-tender, non-distended, normal bowel sounds Female genitourinary: Present: deferred - Rectal Rectal Exam: deferred - Integumentary Integumentary: Present: clear, warm, dry - Musculoskeletal Musculoskeletal: gait normal, strength equal bilaterally - Psychiatric Psychiatric: appropriate mood/affect, intact judgment & insight - Neurologic Neurologic: CNII-XII intact, moves all extremities Results - Labs CBC & Chem 7: 12/25/16 08:32 12/25/16 08:32 Labs: Abnormal lab results 12/24/16 12/24/16 12/25/16 Range/Units 16:45 21:52 08:32 WBC 15.3 H (4.5-11.0) K/mm3 Hgb 9.7 L (10.1-14.3) gm/dl MCH 26 L (28-32) pg Lymph % (Auto) 7.0 L (13.4-35.0) % [place] % (Auto) 9.7 H (0.0-7.3) % Lymph # 1.1 L (1.2-5.4) K/mm3 [place] # 1.5 H (0.0-0.8) K/mm3 Seg Neutrophils % 80.1 H (40.0-70.0) % Seg Neutrophils # 12.3 H (1.8-7.7) K/mm3 Carbon Dioxide (22-30) mmol/L BUN (7-17) mg/dL Creatinine (0.7-1.2) mg/dL POC Glucose 112 H 127 H (70-105) Magnesium (1.7-2.3) mg/dL 12/25/16 Range/Units 08:32 WBC (4.5-11.0) K/mm3 Hgb (10.1-14.3) gm/dl MCH (28-32) pg Lymph % (Auto) (13.4-35.0) % [place] % (Auto) (0.0-7.3) % Lymph # (1.2-5.4) K/mm3 [place] # (0.0-0.8) K/mm3 Seg Neutrophils % (40.0-70.0) % Seg Neutrophils # (1.8-7.7) K/mm3 Carbon Dioxide 33 H (22-30) mmol/L BUN 6 L (7-17) mg/dL Creatinine 0.4 L (0.7-1.2) mg/dL POC Glucose (70-105) Magnesium 1.60 L (1.7-2.3) mg/dL Assessment and Plan - Patient Problems (1) Abnormal loss of weight Current Visit: Yes Status: Acute Plan to address problem: very mild as per patient, less than 5% of her body mass. (2) Atrial fibrillation Current Visit: Yes Status: Acute Qualifiers: Atrial fibrillation type: A Plan to address problem: to be kept in mind with surgery. cardiology on the case. cleared for surgery, and proceeded. post op day #1 herman colectomy. (3) Hyponatremia Current Visit: Yes Status: Acute Plan to address problem: hydration judiciously. (4) Colonic mass Current Visit: Yes Status: Acute Plan to address problem: Scheduled for resection tomorrow. See notes above. Supposedly set for surgery this afternoon. Differed until cardiology clearance, as per Gen surgery. s/p resection today. as above. This is POD#2, doing ok.
[2016-12-25] MEDS: LEVAQUIN 750MG/150ML 750 MG/150 ML BAG IV SCH (17:14)
[2016-12-25] MEDS: LOPRESSOR IV SCH (18:41)
[2016-12-25] MEDS ORDERED: TPN ADULT 2,016 ML IV SCH (20:00)
[2016-12-25] MEDS: LOVENOX SUB-Q SCH (22:13)
[2016-12-26] MEDS: LOPRESSOR IV SCH ×4 (01:21→18:57)
[2016-12-26] MEDS: MORPHINE IV PRN ×2 (05:00→12:20)
[2016-12-26] MEDS: ZOFRAN IV PRN ×3 (05:01→13:36)
[2016-12-26 05:37] LABS: Basophils % (Auto) 0.3 % (0.0-1.8); Eosinophils % (Auto) 2.3 % (0.0-4.3); Hematocrit 31.1 % (30.3-42.9); Hemoglobin 10.1 gm/dl (10.1-14.3); Mean Corpuscular HGB Conc 33 % (30-34); Mean Corpuscular Volume 80 fl (79-97); Platelet Count 374 K/mm3 (140-440); Red Cell Distribution Width 14.7 % (13.2-15.2); White Blood Count 13.6 K/mm3 (4.5-11.0)
[2016-12-26 05:40] LABS: Mean Corpuscular Hemoglobin 26 pg (28-32)
[2016-12-26 05:57] LABS: Alanine Aminotransferase 6 units/L (7-56); Albumin 2.3 g/dL (3.9-5); Albumin/Globulin Ratio 0.8 %; Alkaline Phosphatase 73 units/L (35-129); Anion Gap 12 mmol/L; BUN/Creatinine Ratio 23.33; Blood Urea Nitrogen 7 mg/dL (7-17); Calcium 9.1 mg/dL (8.4-10.2); Carbon Dioxide 32 mmol/L (22-30); Chloride 97.9 mmol/L (98-107); Glucose 126 mg/dL (65-100); Sodium 138 mmol/L (137-145); Total Protein 5.3 g/dL (6.3-8.2)
--- NOTE | 2016-12-26 06:02 | Event Note ---
Date: 12/26/16 POD 7 VSS AF WBC down to 13 K, You can NOT leave a silverio in this patient! it will only cause urosepsis at this point, she can wear diapers, I have ordered to remove it several times now, please DO NOT reinsert silverio without an order from a Urologist. Pt states she had some flatus, continue TPN, wound OK, chemical DVT prophylaxis, consider LTACH or assisted placement, OK to advance to clear liquids-adv slowly only once bowel function returns. Path still pending.
[2016-12-26 06:15] LABS: Triglycerides 82 mg/dL (2-149)
[2016-12-26 06:50] LABS: Bilirubin,Urine NEG (Negative); Blood,Urine SM (Negative); Ketones,Urine NEG (Negative); Leukocyte Esterase,Urine MOD (Negative); Mucus,Urine 2+ /HPF; Nitrite,Urine POS (Negative); Protein,Urine <15 mg/dL mg/dL (Negative); Urobilinogen,Urine < 2.0 mg/dL (<2.0)
--- NOTE | 2016-12-26 10:03 | Progress Note ---
Assessment and Plan Nausea/weakness CTA chest - no PE or dissection Right colon mass s/p extended right hemicolectomy Hyponatremia Hypertension Afib, paroxysmal currently in sinus rhythm on lovenox Vagally mediated asymptomatic ventricular pauses Deconditioned [facility] 01/2015 showed a mild non-obstructive disease, EF 65-70%. Continue beta roni therapy for suppression of her paroxysmal afib. Subjective Date of service: 12/26/16 Principal diagnosis: N/V, abd pain Interval history: Stable sinus rhythm on telemetry. Objective Vital Signs Temp Pulse Pulse Resp Resp BP Pulse Ox 12/26/16 09:45 78 18 170/85 12/26/16 09:33 98.7 F 77 18 200/89 97 12/26/16 07:50 98.1 F 81 18 184/87 95 12/26/16 07:08 85 184/87 12/26/16 05:00 19 12/26/16 02:37 98.0 F 78 18 179/79 99 12/26/16 01:21 78 179/79 12/25/16 22:00 75 18 12/25/16 21:23 18 12/25/16 21:00 20 12/25/16 20:53 20 12/25/16 20:26 99.3 F 7 L 20 169/77 99 12/25/16 19:26 73 12/25/16 18:41 178/86 12/25/16 12:00 98.8 F 74 18 155/72 97 - Physical Examination General: No Apparent Distress HEENT: Positive: PERRL Neck: Positive: trachea midline Cardiac: Positive: Reg Rate and Rhythm - Labs and Meds Cardiac Enzymes 12/26/16 Range/Units 04:46 AST 14 (5-40) units/L Lipids 12/26/16 Range/Units 04:46 Triglycerides 82 (2-149) mg/dL CBC 12/26/16 Range/Units 04:46 WBC 13.6 H (4.5-11.0) K/mm3 RBC 3.90 (3.65-5.03) M/mm3 Hgb 10.1 (10.1-14.3) gm/dl Hct 31.1 (30.3-42.9) % Plt Count 374 (140-440) K/mm3 Lymph # 0.8 L (1.2-5.4) K/mm3 [place] # 1.2 H (0.0-0.8) K/mm3 Eos # 0.3 (0.0-0.4) K/mm3 Baso # 0.0 (0.0-0.1) K/mm3 Comprehensive Metabolic Panel 12/26/16 Range/Units 04:46 Carbon Dioxide 32 H (22-30) mmol/L BUN 7 (7-17) mg/dL Creatinine 0.3 L (0.7-1.2) mg/dL Glucose 126 H (65-100) mg/dL Calcium 9.1 (8.4-10.2) mg/dL AST 14 (5-40) units/L ALT 6 L (7-56) units/L Alkaline Phosphatase 73 (35-129) units/L Total Protein 5.3 L (6.3-8.2) g/dL Albumin 2.3 L (3.9-5) g/dL - Imaging and Cardiology EKG: image reviewed
[2016-12-26] MEDS: K-DUR PO SCH (10:36)
[2016-12-26] MEDS: PEPCID PO SCH (10:36)
[2016-12-26] MEDS: LEVAQUIN 750MG/150ML 750 MG/150 ML BAG IV SCH (10:37)
[2016-12-26] MEDS: PEPCID IV SCH ×2 (13:34→22:35)
--- NOTE | 2016-12-26 18:36 | Progress Note ---
Assessment and Plan 81-year-old woman who presents with the primary complaint of persistent nausea and GI upset with poor appetite and intermittent vomiting. On presentation, we find that she has atrial fibrillation, with a well-controlled ventricular rate. Abdominal pain. - likely Secondary to colon cancer. Path report pending - s/p surgery on 12/20/[address] Patel. Possible SBO - kub showed possible SBO following surgery - On TPN now - placed on clear liquid today by surgery - TPN will be discontinued when diet is advanced UTI - d/le silverio - cont abx, wbc count trended down Acute hypoxic respiratory failure. Now resolved Atrial fibrillation. - She is rate controlled now, no anticoagulation now considering bleeding risk - But per data analytics architect will need oral anticoagulation when cleared by GS Hypertension. - placed on as needed hydralazine and scheduled metoprolol iv Hyponatremia. - Now resolved with iv fluid Hypokalemia. replacing with iv fluid, cont to monitor BMP DVT prophylaxis. Cont on Lovenox Full code status. I discussed with patient and daughter at bedside. Subjective Date of service: 12/26/16 Principal diagnosis: N/V, abd pain Interval history: Patient seen and examined. Medical records and medication list reviewed. c/o persistent nausea stated that she is passing flatus Started on clear liquid again today UA showed possible UTI Objective - Exam Narrative Exam: Gen appearance: Not in acute distress, obese HEENT: Normocephalic, atraumatic Neck: Supple, no JVD Lungs: Clear to auscultation bilaterally, no crackles, or wheezes. Heart: S1 and S2 regular, no murmurs, no gallops, rub Abdomen : surgical dressing placed on mid abdomen, hypoactive BS Extremities :No edema, no clubbing or cyanosis Neuro: Awake, alert,oriented, normal speech, no focal neurological signs Psych: normal mood. - Constitutional Vitals: Vital Signs - 12hr 12/26/16 12/26/16 12/26/16 07:08 07:50 09:33 Temperature 98.1 F 98.7 F Pulse Rate 85 81 77 Pulse Rate [ Apical] Pulse Rate [ Left Brachial] Respiratory 18 18 Rate Blood Pressure 184/87 184/87 200/89 O2 Sat by Pulse 95 97 Oximetry 12/26/16 12/26/16 12/26/16 09:45 10:00 12:21 Temperature Pulse Rate 78 73 79 Pulse Rate [ 77 Apical] Pulse Rate [ 77 Left Brachial] Respiratory 18 18 Rate Blood Pressure 170/85 187/84 O2 Sat by Pulse Oximetry 12/26/16 18:00 Temperature 98.4 F Pulse Rate 77 Pulse Rate [ Apical] Pulse Rate [ Left Brachial] Respiratory 18 Rate Blood Pressure 195/84 O2 Sat by Pulse 97 Oximetry - Labs CBC & Chem 7: 12/26/16 04:46 12/26/16 04:46 Labs: Abnormal lab results 12/25/16 12/25/16 12/26/16 Range/Units 19:03 22:46 04:46 WBC (4.5-11.0) K/mm3 MCH (28-32) pg Lymph % (Auto) (13.4-35.0) % [place] % (Auto) (0.0-7.3) % Lymph # (1.2-5.4) K/mm3 [place] # (0.0-0.8) K/mm3 Seg Neutrophils % (40.0-70.0) % Seg Neutrophils # (1.8-7.7) K/mm3 Carbon Dioxide 32 H (22-30) mmol/L Creatinine 0.3 L (0.7-1.2) mg/dL Glucose 126 H (65-100) mg/dL POC Glucose 116 H 128 H (70-105) ALT 6 L (7-56) units/L Total Protein 5.3 L (6.3-8.2) g/dL Albumin 2.3 L (3.9-5) g/dL Urine WBC (Auto) (0.0-6.0) /HPF 12/26/16 12/26/16 Range/Units 04:46 06:08 WBC 13.6 H (4.5-11.0) K/mm3 MCH 26 L (28-32) pg Lymph % (Auto) 5.8 L (13.4-35.0) % [place] % (Auto) 9.0 H (0.0-7.3) % Lymph # 0.8 L (1.2-5.4) K/mm3 [place] # 1.2 H (0.0-0.8) K/mm3 Seg Neutrophils % 82.6 H (40.0-70.0) % Seg Neutrophils # 11.2 H (1.8-7.7) K/mm3 Carbon Dioxide (22-30) mmol/L Creatinine (0.7-1.2) mg/dL Glucose (65-100) mg/dL POC Glucose (70-105) ALT (7-56) units/L Total Protein (6.3-8.2) g/dL Albumin (3.9-5) g/dL Urine WBC (Auto) 73.0 H (0.0-6.0) /HPF
--- NOTE | 2016-12-26 19:20 | Consultation ---
History of Present Illness - Reason for Consult Consult date: 12/26/16 - History of Present Illness Patient seen/examined, labs reviewed, case d/w patient and daughter at the bed side.Labs reveals UTI, patient is already on levaquin. 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 I have d/w this finding with patient /daughter. She had already ,and appropriately so that she would not take any aggressive tx. She already had 2 different cancers treated in the past-right breast cancer, and melanoma. Past History Past Medical History: atrial fib, CAD, cancer, hypertension, other (Breast Cancer) Past Surgical History: hysterectomy, Other (polypectomy.and mastectomy) Social history: denies: smoking, alcohol abuse Family history: cancer, hypertension Medications and Allergies Allergies Allergy/AdvReac Type Severity Reaction Status Date / Time Penicillins Allergy Intermediate Rash Verified 12/20/16 13:35 adhesive Allergy Rash Verified 12/07/16 17:22 cyclobenzaprine Allergy Swelling Verified 12/07/16 17:22 acetaminophen [From Tylenol] AdvReac Unknown Verified 12/07/16 17:22 codeine AdvReac Nausea Verified 12/07/16 17:22 Home Medications Medication Instructions Recorded Confirmed Last Taken Type Carvedilol 12.5 mg PO BID 08/05/14 12/07/16 12/07/16 08:00 History Losartan Potassium 50 mg PO DAILY 08/05/14 12/07/16 12/07/16 08:00 History Pregabalin [Lyrica] 150 mg PO BID 08/05/14 12/07/16 12/07/16 08:00 History cycloSPORINE [Restasis 0.05%] 2 drop OU BID 08/05/14 12/07/16 12/06/16 21:00 History Triamter/Hctz 37.5-25 mg 0.5 tab PO QDAY 12/07/16 12/07/16 12/07/16 12:00 History [Maxzide-25] Active Meds: Active Medications Acetaminophen/Hydrocodone Bitart ([place] 5/325) 1 each PO Q4H PRN PRN Reason: Pain, Moderate (4-6) Last Admin: 12/24/16 09:23 Dose: 1 each Enoxaparin Sodium (Lovenox) 40 mg SUB-Q QDAY@2200 [facility] Last Admin: 12/25/16 22:13 Dose: 40 mg Famotidine (Pepcid) 20 mg IV BID [facility] Last Admin: 12/26/16 13:34 Dose: 20 mg Hydralazine HCl (Apresoline) 5 mg IV Q30MIN PRN PRN Reason: Hypertension Last Admin: 12/24/16 14:34 Dose: 5 mg Amino Acids/Electrolytes/Dextrose (Tpn Adult) 2,016 mls @ 84 mls/hr IV DAILY@ 1999 [facility] PRN Reason: Protocol Stop: 12/26/16 19:59 Last Admin: 12/25/16 20:20 Dose: 84 mls/hr Levofloxacin/Dextrose (Levaquin 750mg/150ml) 750 mg in 150 mls @ 100 mls/hr IV Q24HR [facility] PRN Reason: Protocol Last Admin: 12/26/16 10:37 Dose: 100 mls/hr Fat Emulsion Intravenous (Intralipid 20%) 250 mls @ 21 mls/hr IV DAILY@1999 [facility] Stop: 12/27/16 08:00 Amino Acids/Electrolytes/Dextrose (Tpn Adult) 2,016 mls @ 84 mls/hr IV DAILY@ 1999 [facility] PRN Reason: Protocol Stop: 12/27/16 19:59 Metoprolol Tartrate (Lopressor) 5 mg IV Q6HR [facility] Last Admin: 12/26/16 18:57 Dose: 5 mg Morphine Sulfate (Morphine) 1 mg IV Q6H PRN PRN Reason: Pain , Severe (7-10) Last Admin: 12/26/16 12:20 Dose: 1 mg Ondansetron HCl (Zofran) 4 mg IV Q6H PRN PRN Reason: N/V unrelieved by Reglan Last Admin: 12/26/16 13:36 Dose: 4 mg Review of Systems Constitutional: weakness Breasts: deferred Gastrointestinal: nausea, vomiting Exam - Constitutional Vitals: Temp Pulse Resp BP Pulse Ox 98.4 F 75 18 187/82 97 12/26/16 18:00 12/26/16 18:57 12/26/16 18:00 12/26/16 18:57 12/26/16 18:00 General appearance: Present: mild distress, well-nourished - EENT Eyes: Present: PERRL ENT: hearing intact, clear oral mucosa - Neck Neck: Present: supple, normal ROM - Respiratory Respiratory effort: normal Respiratory: bilateral: CTA - Cardiovascular Heart Sounds: Present: S1 & S2. Absent: rub, click - Extremities Extremities: pulses symmetrical, No edema Peripheral Pulses: within normal limits - Abdominal General gastrointestinal: Present: soft, non-tender, non-distended, normal bowel sounds Female genitourinary: Present: deferred - Rectal Rectal Exam: deferred - Integumentary Integumentary: Present: clear, warm, dry - Musculoskeletal Musculoskeletal: gait normal, strength equal bilaterally - Psychiatric Psychiatric: appropriate mood/affect, intact judgment & insight - Neurologic Neurologic: CNII-XII intact, moves all extremities Results - Labs CBC & Chem 7: 12/26/16 04:46 12/26/16 04:46 Labs: Abnormal lab results 12/25/16 12/26/16 12/26/16 Range/Units 22:46 04:46 04:46 WBC 13.6 H (4.5-11.0) K/mm3 MCH 26 L (28-32) pg Lymph % (Auto) 5.8 L (13.4-35.0) % Allen % (Auto) 9.0 H (0.0-7.3) % Lymph # 0.8 L (1.2-5.4) K/mm3 Allen # 1.2 H (0.0-0.8) K/mm3 Seg Neutrophils % 82.6 H (40.0-70.0) % Seg Neutrophils # 11.2 H (1.8-7.7) K/mm3 Carbon Dioxide 32 H (22-30) mmol/L Creatinine 0.3 L (0.7-1.2) mg/dL Glucose 126 H (65-100) mg/dL POC Glucose 128 H (70-105) ALT 6 L (7-56) units/L Total Protein 5.3 L (6.3-8.2) g/dL Albumin 2.3 L (3.9-5) g/dL Urine WBC (Auto) (0.0-6.0) /HPF 12/26/16 12/26/16 12/26/16 Range/Units 06:08 07:20 12:08 WBC (4.5-11.0) K/mm3 MCH (28-32) pg Lymph % (Auto) (13.4-35.0) % Allen % (Auto) (0.0-7.3) % Lymph # (1.2-5.4) K/mm3 Allen # (0.0-0.8) K/mm3 Seg Neutrophils % (40.0-70.0) % Seg Neutrophils # (1.8-7.7) K/mm3 Carbon Dioxide (22-30) mmol/L Creatinine (0.7-1.2) mg/dL Glucose (65-100) mg/dL POC Glucose 129 H 149 H (70-105) ALT (7-56) units/L Total Protein (6.3-8.2) g/dL Albumin (3.9-5) g/dL Urine WBC (Auto) 73.0 H (0.0-6.0) /HPF Assessment and Plan - Patient Problems (1) Abnormal loss of weight Current Visit: Yes Status: Acute Plan to address problem: very mild as per patient, less than 5% of her body mass. (2) Atrial fibrillation Current Visit: Yes Status: Acute Qualifiers: Atrial fibrillation type: A Plan to address problem: to be kept in mind with surgery. cardiology on the case. cleared for surgery, and proceeded. post op day #1 herman colectomy. (3) Hyponatremia Current Visit: Yes Status: Acute Plan to address problem: hydration judiciously. (4) Colonic mass Current Visit: Yes Status: Acute Plan to address problem: Scheduled for resection tomorrow. See notes above. Supposedly set for surgery this afternoon. Differed until cardiology clearance, as per Gen surgery. s/p resection today. as above. This is POD#2, doing ok. Final path is poorly diff adeno ca. No treatment elected by patient.
[2016-12-26] MEDS ORDERED: INTRALIPID 20% 250 ML IV SCH (20:00)
[2016-12-26] MEDS ORDERED: TPN ADULT 2,016 ML IV SCH (20:00)
[2016-12-26] MEDS: LOVENOX SUB-Q SCH (22:34)
[2016-12-27] MEDS: LOPRESSOR IV SCH ×4 (00:05→20:02)
[2016-12-27] MEDS: ZOFRAN IV PRN ×2 (00:05→16:45)
[2016-12-27 06:21] LABS: Anion Gap 17 mmol/L; BUN/Creatinine Ratio 36.66; Blood Urea Nitrogen 11 mg/dL (7-17); Carbon Dioxide 28 mmol/L (22-30); Chloride 95.8 mmol/L (98-107); Glucose 124 mg/dL (65-100); Potassium 3.7 mmol/L (3.6-5.0); Sodium 137 mmol/L (137-145)
--- NOTE | 2016-12-27 10:48 | Progress Note ---
Assessment and Plan Nausea/weakness CTA chest - no PE or dissection abdominal u/s -probable ileus Right colon mass s/p extended right hemicolectomy Hyponatremia Hypertension Afib, paroxysmal currently in sinus rhythm on lovenox Vagally mediated asymptomatic ventricular pauses Deconditioned [facility] 01/2015 showed a mild non-obstructive disease, EF 65-70%. Continue beta roin therapy for suppression of her paroxysmal afib. Conservative cardiac management. Subjective Date of service: 12/27/16 Principal diagnosis: N/V, abd pain Interval history: Patient has no chest pain or shortness of breath. She reports nausea, vomiting early this morning. Stable sinus rhythm on telemetry. Objective Vital Signs Temp Pulse Pulse Resp Resp BP Pulse Ox 12/27/16 09:10 98.5 F 78 20 191/88 97 12/27/16 05:21 85 179/76 12/27/16 05:08 85 19 179/76 12/27/16 00:05 77 192/86 12/27/16 00:04 97.6 F 77 18 192/86 95 12/26/16 22:54 18 12/26/16 22:00 80 18 98 12/26/16 19:52 98.9 F 90 18 189/88 94 12/26/16 19:02 80 12/26/16 18:57 75 187/82 12/26/16 18:00 98.4 F 77 18 195/84 97 12/26/16 16:00 80 20 190/82 12/26/16 12:21 79 187/84 - Physical Examination General: No Apparent Distress HEENT: Positive: PERRL Neck: Positive: trachea midline Cardiac: Positive: Reg Rate and Rhythm Neuro: Positive: Weakness Extremities: Absent: edema - Labs and Meds Comprehensive Metabolic Panel 12/27/16 Range/Units 04:45 Sodium 137 (137-145) mmol/L Potassium 3.7 (3.6-5.0) mmol/L Chloride 95.8 L (98-107) mmol/L Carbon Dioxide 28 (22-30) mmol/L BUN 11 (7-17) mg/dL Creatinine 0.3 L (0.7-1.2) mg/dL Glucose 124 H (65-100) mg/dL Calcium 9.0 (8.4-10.2) mg/dL - Imaging and Cardiology EKG: image reviewed
--- NOTE | 2016-12-27 11:12 | Event Note ---
Date: 12/27/16 POD 8 VSS AF on PPN, patient had BM x 2 this am! advance to full liquid diet, wean PPN, oral pain meds, path reveals stage III colon cancer, Hopefully home soon or NHP versus LTACH.
--- NOTE | 2016-12-27 15:07 | Progress Note ---
Assessment and Plan Assessment and plan: 81-year-old woman who presents with the primary complaint of persistent nausea and GI upset with poor appetite and intermittent vomiting. On presentation, we find that she has atrial fibrillation, with a well-controlled ventricular rate. Abdominal pain. -Secondary to colon cancer -Status post hemicolectomy Possible SBO - Resolved - Urgent bowel movement UTI - d/le silverio - Continue with antibiotics, we can change to by mouth Acute hypoxic respiratory failure. Now resolved Atrial fibrillation. 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 - placed on as needed hydralazine and scheduled metoprolol iv - We'll restart by mouth medications Hyponatremia. - Now resolved with iv fluid Hypokalemia. replacing with iv fluid, cont to monitor BMP DVT prophylaxis. Cont on Lovenox Full code status. I have discussed with the patient. History Interval history: Patient was seen and evaluated this morning, she had multiple bowel movements. She started with clear liquid diet. Hospitalist Physical - Physical exam Narrative exam: Not in cardiopulmonary distress. The patient is obese. Vital signs as documented. Head exam is unremarkable. No scleral icterus . Neck is without jugular venous distension, thyromegaly, or carotid bruits. Lungs are clear to auscultation. Cardiac exam reveals regular rate and Rhythm. First and second heart sounds normal. No murmurs, rubs or gallops. Abdominal exam reveals normal bowel sounds. Extremities are nonedematous and both femoral and pedal pulses are normal. SORT MANAGER: Alert and oriented 3. No focal weakness. - Constitutional Vitals: Temp Pulse Resp BP Pulse Ox 98.2 F 81 20 198/93 95 12/27/16 13:44 12/27/16 13:44 12/27/16 13:44 12/27/16 13:44 12/27/16 13:44 General appearance: Present: mild distress, well-nourished Results - Labs CBC & Chem 7: 12/26/16 04:46 12/27/16 04:45 Labs: Laboratory Last Values WBC 13.6 K/mm3 (4.5-11.0) H 12/26/16 04:46 RBC 3.90 M/mm3 (3.65-5.03) 12/26/16 04:46 Hgb 10.1 gm/dl (10.1-14.3) 12/26/16 04:46 Hct 31.1 % (30.3-42.9) 12/26/16 04:46 MCV 80 fl (79-97) 12/26/16 04:46 MCH 26 pg (28-32) L 12/26/16 04:46 MCHC 33 % (30-34) 12/26/16 04:46 RDW 14.7 % (13.2-15.2) 12/26/16 04:46 Plt Count 374 K/mm3 (140-440) 12/26/16 04:46 Lymph % (Auto) 5.8 % (13.4-35.0) L 12/26/16 04:46 [place] % (Auto) 9.0 % (0.0-7.3) H 12/26/16 04:46 Eos % (Auto) 2.3 % (0.0-4.3) 12/26/16 04:46 Baso % (Auto) 0.3 % (0.0-1.8) 12/26/16 04:46 Lymph # 0.8 K/mm3 (1.2-5.4) L 12/26/16 04:46 [place] # 1.2 K/mm3 (0.0-0.8) H 12/26/16 04:46 Eos # 0.3 K/mm3 (0.0-0.4) 12/26/16 04:46 Baso # 0.0 K/mm3 (0.0-0.1) 12/26/16 04:46 Add Manual Diff Complete 12/20/16 05:30 Total Counted 100 12/20/16 05:30 Seg Neutrophils % 82.6 % (40.0-70.0) H 12/26/16 04:46 Seg Neuts % (Manual) 84.0 % (40.0-70.0) H 12/20/16 05:30 Band Neutrophils % 10.0 % 12/20/16 05:30 Lymphocytes % (Manual) 5.0 % (13.4-35.0) L 12/20/16 05:30 Reactive Lymphs % (Man) 0 % 12/20/16 05:30 Monocytes % (Manual) 1.0 % (0.0-7.3) 12/20/16 05:30 Eosinophils % (Manual) 0 % (0.0-4.3) 12/20/16 05:30 Basophils % (Manual) 0 % (0.0-1.8) 12/20/16 05:30 Metamyelocytes % 0 % 12/20/16 05:30 Myelocytes % 0 % 12/20/16 05:30 Promyelocytes % 0 % 12/20/16 05:30 Blast Cells % 0 % 12/20/16 05:30 Nucleated RBC % Not Reportable 12/20/16 05:30 Seg Neutrophils # 11.2 K/mm3 (1.8-7.7) H 12/26/16 04:46 Seg Neutrophils # Man 6.4 K/mm3 (1.8-7.7) 12/20/16 05:30 Band Neutrophils # 0.8 K/mm3 12/20/16 05:30 Lymphocytes # (Manual) 0.4 K/mm3 (1.2-5.4) L 12/20/16 05:30 Abs React Lymphs (Man) 0.0 K/mm3 12/20/16 05:30 Monocytes # (Manual) 0.1 K/mm3 (0.0-0.8) 12/20/16 05:30 Eosinophils # (Manual) 0.0 K/mm3 (0.0-0.4) 12/20/16 05:30 Basophils # (Manual) 0.0 K/mm3 (0.0-0.1) 12/20/16 05:30 Metamyelocytes # 0.0 K/mm3 12/20/16 05:30 Myelocytes # 0.0 K/mm3 12/20/16 05:30 Promyelocytes # 0.0 K/mm3 12/20/16 05:30 Blast Cells # 0.0 K/mm3 12/20/16 05:30 WBC Morphology Not Reportable 12/20/16 05:30 Hypersegmented Neuts Not Reportable 12/20/16 05:30 Hyposegmented Neuts Not Reportable 12/20/16 05:30 Hypogranular Neuts Not Reportable 12/20/16 05:30 Smudge Cells Not Reportable 12/20/16 05:30 Toxic Granulation Not Reportable 12/20/16 05:30 Toxic Vacuolation Not Reportable 12/20/16 05:30 Dohle Bodies Not Reportable 12/20/16 05:30 Pelger-Huet Anomaly Not Reportable 12/20/16 05:30 Pinky Rods Not Reportable 12/20/16 05:30 Platelet Estimate Appears normal 12/20/16 05:30 Clumped Platelets Not Reportable 12/20/16 05:30 Plt Clumps, EDTA Not Reportable 12/20/16 05:30 Large Platelets Not Reportable 12/20/16 05:30 Giant Platelets Not Reportable 12/20/16 05:30 Platelet Satelliting Not Reportable 12/20/16 05:30 Plt Morphology Comment Not Reportable 12/20/16 05:30 RBC Morphology Not Reportable 12/20/16 05:30 Dimorphic RBCs Not Reportable 12/20/16 05:30 Polychromasia Not Reportable 12/20/16 05:30 Hypochromasia Not Reportable 12/20/16 05:30 Poikilocytosis Not Reportable 12/20/16 05:30 Anisocytosis 1+ 12/20/16 05:30 Microcytosis Not Reportable 12/20/16 05:30 Macrocytosis Not Reportable 12/20/16 05:30 Spherocytes Not Reportable 12/20/16 05:30 Pappenheimer Bodies Not Reportable 12/20/16 05:30 Sickle Cells Not Reportable 12/20/16 05:30 Target Cells Not Reportable 12/20/16 05:30 Tear Drop Cells Not Reportable 12/20/16 05:30 Ovalocytes Not Reportable 12/20/16 05:30 Helmet Cells Not Reportable 12/20/16 05:30 Jones-Whiteash Bodies Not Reportable 12/20/16 05:30 Leoma Rings Not Reportable 12/20/16 05:30 [place] Cells 1+ 12/20/16 05:30 Bite Cells Not Reportable 12/20/16 05:30 Crenated Cell Not Reportable 12/20/16 05:30 Elliptocytes Not Reportable 12/20/16 05:30 Acanthocytes (Spur) Not Reportable 12/20/16 05:30 Rouleaux Not Reportable 12/20/16 05:30 Hemoglobin C Crystals Not Reportable 12/20/16 05:30 Schistocytes Not Reportable 12/20/16 05:30 Malaria parasites Not Reportable 12/20/16 05:30 Doyle Bodies Not Reportable 12/20/16 05:30 Hem Pathologist Commnt No 12/20/16 05:30 PT 14.6 Sec. (12.2-14.9) 12/14/16 04:43 INR 1.15 (0.87-1.13) H 12/14/16 04:43 D-Dimer 549.31 ng/mlDDU (0-234) H 12/07/16 23:36 Sodium 137 mmol/L (137-145) 12/27/16 04:45 Potassium 3.7 mmol/L (3.6-5.0) 12/27/16 04:45 Chloride 95.8 mmol/L (98-107) L 12/27/16 04:45 Carbon Dioxide 28 mmol/L (22-30) 12/27/16 04:45 Anion Gap 17 mmol/L 12/27/16 04:45 BUN 11 mg/dL (7-17) 12/27/16 04:45 Creatinine 0.3 mg/dL (0.7-1.2) L 12/27/16 04:45 Estimated GFR > 60 ml/min 12/27/16 04:45 BUN/Creatinine Ratio 36.66 % 12/27/16 04:45 Glucose 124 mg/dL (65-100) H 12/27/16 04:45 POC Glucose 131 (70-105) H 12/27/16 06:17 Calcium 9.0 mg/dL (8.4-10.2) 12/27/16 04:45 Phosphorus 3.00 mg/dL (2.5-4.5) 12/27/16 04:45 Magnesium 1.90 mg/dL (1.7-2.3) 12/27/16 04:45 Total Bilirubin 0.40 mg/dL (0.1-1.2) 12/26/16 04:46 AST 14 units/L (5-40) 12/26/16 04:46 ALT 6 units/L (7-56) L 12/26/16 04:46 Alkaline Phosphatase 73 units/L (35-129) 12/26/16 04:46 Lactate Dehydrogenase 192 units/L (91-180) H 12/13/16 22:08 Total Creatine Kinase 77 units/L (30-135) 12/08/16 04:45 CK-MB (CK-2) 4.5 ng/mL (0.0-4.0) H 12/08/16 04:45 CK-MB (CK-2) Rel Index 5.8 (0-4) H 12/08/16 04:45 Troponin T < 0.010 ng/mL (0.00-0.029) 12/08/16 04:45 NT-Pro-B Natriuret Pep 1229 pg/mL (0-900) H 12/07/16 17:37 Total Protein 5.3 g/dL (6.3-8.2) L 12/26/16 04:46 Albumin 2.3 g/dL (3.9-5) L 12/26/16 04:46 Albumin/Globulin Ratio 0.8 % 12/26/16 04:46 Triglycerides 82 mg/dL (2-149) 12/26/16 04:46 Lipase 39 units/L (13-60) 12/12/16 04:30 Carcinoembryonic Ag See scanned report 12/12/16 04:30 TSH 2.930 mlU/mL (0.270-4.200) 12/10/16 05:37 Urine Color Yellow (Yellow) 12/26/16 06:08 Urine Turbidity Clear (Clear) 12/26/16 06:08 Urine pH 6.0 (5.0-7.0) 12/26/16 06:08 Ur Specific [place] 1.019 (1.003-1.030) 12/26/16 06:08 Urine Protein <15 mg/dl mg/dL (Negative) 12/26/16 06:08 Urine Glucose (UA) Neg mg/dL (Negative) 12/26/16 06:08 Urine Ketones Neg mg/dL (Negative) 12/26/16 06:08 Urine Blood Sm (Negative) 12/26/16 06:08 Urine Nitrite Pos (Negative) 12/26/16 06:08 Urine Bilirubin Neg (Negative) 12/26/16 06:08 Urine Urobilinogen < 2.0 mg/dL (<2.0) 12/26/16 06:08 Ur Leukocyte Esterase Mod (Negative) 12/26/16 06:08 Urine WBC (Auto) 73.0 /HPF (0.0-6.0) H 12/26/16 06:08 Urine RBC (Auto) 7.0 /HPF (0.0-6.0) 12/26/16 06:08 U Epithel Cells (Auto) 1.0 /HPF (0-13.0) 12/26/16 06:08 Hyaline Casts 6 /LPF 12/26/16 06:08 Urine Mucus 2+ /HPF 12/26/16 06:08 Blood Type O POSITIVE 12/18/16 09:00 Antibody Screen TNR 12/18/16 09:00 LAVON Antibody Screen Negative 12/18/16 09:00
[2016-12-27] MEDS ORDERED: LEVAQUIN PO SCH (16:00)
[2016-12-27] MEDS: PEPCID IV SCH ×2 (16:13→21:04)
[2016-12-27] MEDS ORDERED: TPN ADULT 2,016 ML IV SCH (20:00)
[2016-12-27] MEDS: LEVAQUIN 750MG/150ML 750 MG/150 ML BAG IV SCH (20:01)
[2016-12-27] MEDS: MAXZIDE-25 PO SCH (20:02)
[2016-12-27] MEDS: LOVENOX SUB-Q SCH (21:04)
[2016-12-27] MEDS: COREG PO SCH (21:05)
--- NOTE | 2016-12-27 22:54 | Consultation ---
History of Present Illness - Reason for Consult Consult date: 12/27/16 - History of Present Illness Patient seen/examined, resting in bed ok, No mew issues at this time. Past History Past Medical History: atrial fib, CAD, cancer, hypertension, other (Breast Cancer) Past Surgical History: hysterectomy, Other (polypectomy.and mastectomy) Social history: denies: smoking, alcohol abuse Family history: cancer, hypertension Medications and Allergies Allergies Allergy/AdvReac Type Severity Reaction Status Date / Time Penicillins Allergy Intermediate Rash Verified 12/20/16 13:35 adhesive Allergy Rash Verified 12/07/16 17:22 cyclobenzaprine Allergy Swelling Verified 12/07/16 17:22 acetaminophen [From Tylenol] AdvReac Unknown Verified 12/07/16 17:22 codeine AdvReac Nausea Verified 12/07/16 17:22 Home Medications Medication Instructions Recorded Confirmed Last Taken Type Carvedilol 12.5 mg PO BID 08/05/14 12/07/16 12/07/16 08:00 History Losartan Potassium 50 mg PO DAILY 08/05/14 12/07/16 12/07/16 08:00 History Pregabalin [Lyrica] 150 mg PO BID 08/05/14 12/07/16 12/07/16 08:00 History cycloSPORINE [Restasis 0.05%] 2 drop OU BID 08/05/14 12/07/16 12/06/16 21:00 History Triamter/Hctz 37.5-25 mg 0.5 tab PO QDAY 12/07/16 12/07/16 12/07/16 12:00 History [Maxzide-25] Active Meds: Active Medications Acetaminophen/Hydrocodone Bitart ([place] 5/325) 1 each PO Q4H PRN PRN Reason: Pain, Moderate (4-6) Last Admin: 12/24/16 09:23 Dose: 1 each Carvedilol (Coreg) 12.5 mg PO BID [facility] Last Admin: 12/27/16 21:05 Dose: 12.5 mg Enoxaparin Sodium (Lovenox) 40 mg SUB-Q QDAY@2200 [facility] Last Admin: 12/27/16 21:04 Dose: 40 mg Famotidine (Pepcid) 20 mg IV BID [facility] Last Admin: 12/27/16 21:04 Dose: 20 mg Hydralazine HCl (Apresoline) 5 mg IV Q30MIN PRN PRN Reason: Hypertension Last Admin: 12/24/16 14:34 Dose: 5 mg Levofloxacin (Levaquin) 500 mg PO Q24HR [facility] Last Admin: 12/27/16 16:14 Dose: 500 mg Losartan Potassium (Cozaar) 50 mg PO DAILY [facility] Metoprolol Tartrate (Lopressor) 5 mg IV Q6HR [facility] Last Admin: 12/27/16 20:02 Dose: Not Given Ondansetron HCl (Zofran) 4 mg IV Q6H PRN PRN Reason: N/V unrelieved by Reglan Last Admin: 12/27/16 16:45 Dose: 4 mg Triamterene/HCTZ (Maxzide-25) 0.5 each PO QDAY [facility] Last Admin: 12/27/16 20:02 Dose: Not Given Review of Systems Constitutional: fatigue, weakness Breasts: deferred Respiratory: shortness of breath Exam - Constitutional Vitals: Temp Pulse Resp BP Pulse Ox 97.3 F L 80 20 172/81 96 12/27/16 22:03 12/27/16 22:03 12/27/16 22:03 12/27/16 22:03 12/27/16 22:03 General appearance: Present: mild distress, well-nourished - EENT Eyes: Present: PERRL ENT: hearing intact, clear oral mucosa - Neck Neck: Present: supple, normal ROM - Respiratory Respiratory effort: normal Respiratory: bilateral: CTA - Cardiovascular Heart Sounds: Present: S1 & S2. Absent: rub, click - Extremities Extremities: pulses symmetrical, No edema Peripheral Pulses: within normal limits - Abdominal General gastrointestinal: Present: soft, non-tender, non-distended, normal bowel sounds Female genitourinary: Present: deferred - Rectal Rectal Exam: deferred - Integumentary Integumentary: Present: clear, warm, dry - Musculoskeletal Musculoskeletal: gait normal, strength equal bilaterally - Psychiatric Psychiatric: appropriate mood/affect, intact judgment & insight - Neurologic Neurologic: CNII-XII intact, moves all extremities Results - Labs CBC & Chem 7: 12/26/16 04:46 12/27/16 04:45 Labs: Abnormal lab results 12/27/16 12/27/16 12/27/16 Range/Units 04:45 06:17 12:44 Chloride 95.8 L (98-107) mmol/L Creatinine 0.3 L (0.7-1.2) mg/dL Glucose 124 H (65-100) mg/dL POC Glucose 131 H 115 H (70-105) / Range/Units 16:17 Chloride (98-107) mmol/L Creatinine (0.7-1.2) mg/dL Glucose (65-100) mg/dL POC Glucose 120 H (70-105) Assessment and Plan - Patient Problems (1) Abnormal loss of weight Current Visit: Yes Status: Acute Plan to address problem: very mild as per patient, less than 5% of her body mass. no issues. (2) Atrial fibrillation Current Visit: Yes Status: Acute Qualifiers: Atrial fibrillation type: A Plan to address problem: to be kept in mind with surgery. cardiology on the case. cleared for surgery, and proceeded. post op day #1 herman colectomy. recovering. (3) Hyponatremia Current Visit: Yes Status: Acute Plan to address problem: hydration judiciously. (4) Colonic mass Current Visit: Yes Status: Acute Plan to address problem: Scheduled for resection tomorrow. See notes above. Supposedly set for surgery this afternoon. Differed until cardiology clearance, as per Gen surgery. s/p resection today. as above. This is POD#2, doing ok. Final path is poorly diff adeno ca. No treatment elected by patient.
[2016-12-28] MEDS: LOPRESSOR IV SCH ×2 (00:44→05:10)
[2016-12-28 06:24] LABS: Basophils % (Auto) 0.6 % (0.0-1.8); Eosinophils % (Auto) 2.5 % (0.0-4.3); Hematocrit 29.3 % (30.3-42.9); Hemoglobin 9.9 gm/dl (10.1-14.3); Mean Corpuscular HGB Conc 34 % (30-34); Mean Corpuscular Hemoglobin 27 pg (28-32); Mean Corpuscular Volume 79 fl (79-97); Platelet Count 358 K/mm3 (140-440); Red Blood Count 3.69 M/mm3 (3.65-5.03); Red Cell Distribution Width 14.8 % (13.2-15.2); White Blood Count 11.3 K/mm3 (4.5-11.0)
[2016-12-28 06:37] LABS: Anion Gap 15 mmol/L; Blood Urea Nitrogen 10 mg/dL (7-17); Calcium 8.9 mg/dL (8.4-10.2); Carbon Dioxide 29 mmol/L (22-30); Chloride 98.2 mmol/L (98-107); Glucose 91 mg/dL (65-100); Potassium 3.8 mmol/L (3.6-5.0); Sodium 138 mmol/L (137-145)
--- NOTE | 2016-12-28 09:04 | Event Note ---
Date: 12/28/16 POD 9 VSS AF, on regular diet, WBC trending down, H and HCT stable, patient had bowel movements yesterday, PPN d/le, on DVT chemical prophylaxis, OK to resume oral anticoagulant per cardiology, Pt can be discharged from Surgical perspective to senior care if she continues to do well. No iv narcotics, oral pain meds prn, levaquin orally for a total of 10 days to treat UTI.
[2016-12-28] MEDS ORDERED: COZAAR PO SCH (10:00)
[2016-12-28] MEDS: NORCO 5/325 PO PRN ×2 (10:05→15:45)
[2016-12-28] MEDS: PEPCID IV SCH (10:05)
[2016-12-28] MEDS: MAXZIDE-25 PO SCH (10:06)
[2016-12-28] MEDS: COREG PO SCH (10:06)
--- NOTE | 2016-12-28 10:13 | Progress Note ---
Assessment and Plan Nausea/weakness CTA chest - no PE or dissection abdominal u/s -probable ileus Right colon mass s/p extended right hemicolectomy Hyponatremia Hypertension Afib, paroxysmal currently in sinus rhythm on lovenox Vagally mediated asymptomatic ventricular pauses Deconditioned [facility] 01/2015 showed a mild non-obstructive disease, EF 65-70%. Plan: We will resume eliquis 5 mg po bid. Continue beta roni therapy for suppression of her paroxysmal afib. Otherwise, conservative cardiac management. Subjective Date of service: 12/28/16 Principal diagnosis: N/V, abd pain Interval history: Patient has no chest pain or shortness of breath. Stable sinus rhythm on telemetry. Objective Vital Signs Temp Pulse Resp BP Pulse Ox 12/28/16 10:06 158/70 12/28/16 04:56 97.8 F 77 18 158/70 98 12/28/16 00:00 97.7 F 77 18 152/72 98 12/27/16 22:03 97.3 F L 80 20 172/81 96 12/27/16 21:32 83 12/27/16 20:03 20 12/27/16 17:18 98.8 F 87 18 161/83 96 12/27/16 16:14 81 191/88 12/27/16 13:44 98.2 F 81 20 198/93 95 - Physical Examination General: No Apparent Distress HEENT: Positive: PERRL Neck: Positive: trachea midline Cardiac: Positive: Reg Rate and Rhythm Neuro: Positive: Weakness - Labs and Meds CBC 12/28/16 Range/Units 04:39 WBC 11.3 H (4.5-11.0) K/mm3 RBC 3.69 (3.65-5.03) M/mm3 Hgb 9.9 L (10.1-14.3) gm/dl Hct 29.3 L (30.3-42.9) % Plt Count 358 (140-440) K/mm3 Lymph # 1.0 L (1.2-5.4) K/mm3 [place] # 1.2 H (0.0-0.8) K/mm3 Eos # 0.3 (0.0-0.4) K/mm3 Baso # 0.1 (0.0-0.1) K/mm3 Comprehensive Metabolic Panel 12/28/16 Range/Units 04:39 Sodium 138 (137-145) mmol/L Potassium 3.8 (3.6-5.0) mmol/L Chloride 98.2 (98-107) mmol/L Carbon Dioxide 29 (22-30) mmol/L BUN 10 (7-17) mg/dL Creatinine 0.4 L (0.7-1.2) mg/dL Glucose 91 (65-100) mg/dL Calcium 8.9 (8.4-10.2) mg/dL - Imaging and Cardiology EKG: image reviewed
[2016-12-28] MEDS ORDERED: ELIQUIS PO SCH (12:00)
[2016-12-28 13:30] VITALS: BP 159/86
--- NOTE | 2016-12-28 14:47 | Discharge Summary ---
Providers - Providers Date of Admission: 12/07/16 23:52 Date of discharge: 12/28/16 Attending physician: EZEKIEL LAWSON MD 12/07/16 23:56 Consult to Physician [CONS] Routine Consulting Provider: SHALONDA TELLO Reason For Exam: ua Place consult to:: ese heart Notified:: valdemar Was contact made?: Yes Time called:: 09:30 12/09/16 11:47 Consult to Physician [CONS] Routine Consulting Provider: JEFFREY FERNANDEZ Reason For Exam: dyspepsia Place consult to:: gi Notified:: office Phone number called:: [phone] Was contact made?: Yes Time called:: 12:45 12/13/16 13:50 Consult to Physician [CONS] Routine Consulting Provider: NISSA MORENO Reason For Exam: colon mass Place consult to:: General surgery Notified:: OFFICE Was contact made?: Yes If yes, spoke with:: AISHWARYA Time called:: 15:35 12/13/16 13:59 Consult to Physician [CONS] Routine Consulting Provider: JEAN PIERRE BUENO Reason For Exam: colon malignancy Place consult to:: Oncology Notified:: DR BUENO Was contact made?: Yes If yes, spoke with:: DR BUENO Time called:: 15:47 12/14/16 14:18 PICC Line Insertion [Consult to PICC Line RN] [CONS] Urgent Reason For Exam: No access obtainable Type Line:: Midline 12/20/16 08:15 Physical Therapy Evaluation and Treat [CONS] Routine Comment: Reason For Exam: need mobilization 12/24/16 06:47 Consult to Wound/ET Nurse [CONS] Routine Reason For Exam: wound eval 12/24/16 13:24 Consult to Dietitian/Nutrition [CONS] Routine Physician Instructions: Reason For Exam: Reason for Consult: TPN Primary care physician: LOGISTIC MANAGER Hospitalization Reason for admission: abdominal pain, colon cancer, A. fib Condition: Stable Pertinent studies: CT abdomen and pelvis revealed circumferential thickening of the colon significant for colon cancer Procedures: EGD Hemicolectomy Hospital course: This is a. 81-year-old woman history of hypertension, A. fib, not on anticoagulation, coronary artery disease comes emergency room with complaints of shortness of breath, and orthopnea 2-3 weeks. Also complaining of chest pain in the right chest which she describes a heaviness, unable to say how long it lasts for, intermittent in nature, no radiation and she cannot identify exacerbating or relieving factors. Denies nausea vomiting, diaphoresis or palpitation. Patient was admitted to the floor for Afib with RVR, hypertension and patient started on anticoagulation. Patient started to have GI bleed and imaging and colonoscopy was done and showed colon cancer. Surgery was consulted and did hemicolectomy. After that patient didn't have any further bleeding and cardiology recommended to start back on anticoagulation. Patient was discharged to [facility] with anticoagulation and other appropriate medications. Patient to developed UTI and was treated for that. Patient had a complicated hospital course. Patient was hemodynamically stable at the time of discharge. Medications were reviewed and adjusted at the time of discharge. The daughter was in the room and I discussed the management plan with her daughter and the patient. Dis[id number] Time spent for discharge: 31 minutes - Discharge Diagnoses (1) Colon cancer Status: Acute Qualifiers: Colon location: C (2) Status post partial colectomy Status: Acute (3) Abnormal loss of weight Status: Acute (4) Atrial fibrillation Status: Acute Qualifiers: Atrial fibrillation type: A Core Measure Documentation - Palliative Care Palliative Care/ Comfort Measures: Not Applicable - Core Measures Any of the following diagnoses?: none Exam - Physical Exam Narrative exam: Not in cardiopulmonary distress. The patient is obese. Vital signs as documented. Head exam is unremarkable. No scleral icterus . Neck is without jugular venous distension, thyromegaly, or carotid bruits. Lungs are clear to auscultation. Cardiac exam reveals regular rate and Rhythm. First and second heart sounds normal. No murmurs, rubs or gallops. Abdominal exam reveals normal bowel sounds. Extremities are nonedematous and both femoral and pedal pulses are normal. NEUROPSYCHIATRIST: Alert and oriented 3. No focal weakness. - Constitutional Vitals: Temp Pulse Resp BP Pulse Ox 98.0 F 80 16 159/86 96 12/28/16 13:26 12/28/16 13:26 12/28/16 13:26 12/28/16 13:26 12/28/16 13:26 Plan Activity: advance as tolerated Weight Bearing Status: Weight Bear as Tolerated Diet: low cholesterol, low salt Follow up with: PRIMARY CARE, [Primary Care Provider] - 3-5 Days Prescriptions: HYDROcodone/APAP 5-325 [[place] 5-325 mg TAB] 1 each PO Q4H PRN #20 tablet PRN Reason: Pain, Moderate (4-6) Levofloxacin [Levaquin TAB] 500 mg PO Q24H #7 tablet
[2016-12-28] MEDS ORDERED: LEVAQUIN PO SCH (16:00)
[2016-12-28] MEDS ORDERED: INTRALIPID 20% 250 ML IV SCH (20:00)
[2016-12-28] MEDS ORDERED: TPN ADULT 2,016 ML IV SCH (20:00)
[2016-12-28] MEDS ORDERED: PEPCID PO SCH (22:00)
== END 2016-12-28 17:34 | DRG 329 ==
LOC: ED 16:50 → 4A 23:52
PROVIDERS: ADMIT Internal Medicine; ATTEND Internal Medicine
PROC: 0D737ZZ Dilation of Lower Esophagus, Via Natural or Artificial Opening (ICD-10-PCS; principal; 2016-12-13)
PROC: 0DBH8ZX Excision of Cecum, Via Natural or Artificial Opening Endoscopic, Diagnostic (ICD-10-PCS; 2016-12-13)
PROC: 02HV33Z Insertion of Infusion Device into Superior Vena Cava, Percutaneous Approach (ICD-10-PCS; 2016-12-15)
PROC: 0DTF0ZZ Resection of Right Large Intestine, Open Approach (ICD-10-PCS; 2016-12-19)
DX: C18.2 Malignant neoplasm of ascending colon (principal); K85.90 Acute pancreatitis without necrosis or infection, unspecified; J96.01 Acute respiratory failure with hypoxia; G93.41 Metabolic encephalopathy; K92.2 Gastrointestinal hemorrhage, unspecified; E87.1 Hypo-osmolality and hyponatremia; N39.0 Urinary tract infection, site not specified; I25.110 Atherosclerotic heart disease of native coronary artery with unstable angina pectoris; I10 Essential (primary) hypertension; K44.9 Diaphragmatic hernia without obstruction or gangrene; I48.0 Paroxysmal atrial fibrillation; E66.9 Obesity, unspecified; K21.9 Gastro-esophageal reflux disease without esophagitis; M19.90 Unspecified osteoarthritis, unspecified site; Z96.89 Presence of other specified functional implants; E83.42 Hypomagnesemia; E83.39 Other disorders of phosphorus metabolism; Z90.11 Acquired absence of right breast and nipple; Z85.3 Personal history of malignant neoplasm of breast; Z79.899 Other long term (current) drug therapy; Z85.820 Personal history of malignant melanoma of skin; Z88.8 Allergy status to other drugs, medicaments and biological substances; Z88.5 Allergy status to narcotic agent; Z90.710 Acquired absence of both cervix and uterus; Z98.42 Cataract extraction status, left eye; Z98.41 Cataract extraction status, right eye; Z80.9 Family history of malignant neoplasm, unspecified; Z88.0 Allergy status to penicillin; Z84.1 Family history of disorders of kidney and ureter
CPT/HCPCS: 36415; 70450; 71010; 71275; 74000; 74177; 76700; 80048; 80053; 81001; 82378; 82550; 82553; 82962; 83615; 83690; 83735; 83880; 84100; 84443; 84478; 84484; 85007; 85014; 85018; 85025; 85027; 85379; 85610; 86850; 86900; 86901; 87040; 88305; 88309; 88341; 88342; 93005; 93010; 96365; 96367; 96375; C1726; G8978-GP; G8979-GP; J0360; J0690; J0696; J1170; J1650; J1885; J1940; J1956; J2270; J2370; J2405; J2704; J2710; J2765; J3475; J3480; J7030; J7042; J7120; Q9967

== ENCOUNTER 2017-10-24 10:24 | Outpatient (CLI) | payer MEDICARE ==
--- NOTE | 2017-10-24 14:05 | Ultrasound Report ---
ULTRASOUND ABDOMEN LIMITED History: Palpable mass at incision. Findings: Targeted grayscale ultrasound with color Doppler interrogation was performed at an incision site near the umbilicus. The images demonstrate 2 small simple appearing fluid collections along the inferior and superior border of the scar measuring up to 2.5 cm in greatest diameter. There is no evidence for internal septation or debris. No bowel loops are identified. These have the appearance of small seromas. Impression: Incisional seromas. See above.
== END 2017-10-24 10:25 | disposition home or self-care (01) ==
LOC: US 10:24
PROVIDERS: ATTEND Internal Medicine Hematology & Oncology
DX: C18.0 Malignant neoplasm of cecum (principal); L76.34 Postprocedural seroma of skin and subcutaneous tissue following other procedure; I25.10 Atherosclerotic heart disease of native coronary artery without angina pectoris; I10 Essential (primary) hypertension; E66.9 Obesity, unspecified; K21.9 Gastro-esophageal reflux disease without esophagitis; F32.9 Major depressive disorder, single episode, unspecified; D64.9 Anemia, unspecified; Z90.49 Acquired absence of other specified parts of digestive tract; Z98.890 Other specified postprocedural states
CPT/HCPCS: 76705